=== PATIENT | female | born 1935 | race Caucasian/White ===

== ENCOUNTER 2017-09-30 23:50 | Inpatient (IN) | payer MEDICARE, OTHER ==
[2017-10-01 01:07] LABS: Hemoglobin 10.6 g/dL (12.0-16.0); Mean Corpuscular Hemoglobin 27.4 pg (27.0-31.0); Mean Corpuscular Volume 88.4 fl (81.0-99.0); Mean Platelet Volume 7.6 fL (7.4-10.4); Platelet Count 159 thou/uL (130-400); RBC Distribution Width 14.5 % (11.5-14.5); Red Blood Cell (RBC) Count 3.88 mill/uL (4.20-5.40); White Blood Cell (WBC) Count 14.7 thou/uL (4.8-10.8)
[2017-10-01 01:16] LABS: Band 23 % (5-11); Lymphocytes 4 % (21-51); MDiff Complete? YES; Metamyelocyte 1 % (0-0); Monocytes 7 % (0-10); Neutrophil 65 % (42-75); PLT Morphology Comment Appears Adequate; RBC Morphology Normal
[2017-10-01 01:17] LABS: ALT (SGPT) 21 U/L (8-55); AST (SGOT) 28 U/L (5-34); Albumin 3.5 g/dL (3.4-4.8); Alkaline Phosphatase 76 U/L (40-150); Anion Gap 17 mmol/L (10-20); BUN (Urea Nitrogen) 47 mg/dL (9.8-20.1); Bilirubin, Total 0.9 mg/dL (0.2-1.2); Calc. Creatinine Clearance 0 mL/min (70-130); Calcium 8.4 mg/dL (7.8-10.44); Carbon Dioxide 25 mmol/L (23-31); Chloride 87 mmol/L (98-107); Estimated GFR-MDRD 13; Globulin 2.5 g/dL (2.4-3.5); Glucose 114 mg/dL (83-110); Sodium 126 mmol/L (136-145)
[2017-10-01 01:22] LABS: Potassium 2.8 mmol/L (3.5-5.1)
[2017-10-01 02:32] LABS: Bilirubin Small (Negative); Blood, Urine Small (Negative); Clarity TURBID (Clear); Glucose, Urine (Dipstick) Negative (Negative); Leukocyte Moderate (Negative); Nitrite Negative (Negative); Protein, Urine (Dipstick) 300 mg/dL (Neg-Trace); Specific Gravity, Urine 1.026 (1.002-1.036)
[2017-10-01 02:35] LABS: Bacteria/HPF 3+ HPF (None Seen)
[2017-10-01 02:53] LABS: Other Casts/LPF 4-6 FINELY GRAN LPF (0-3 Hyaline); RBC/HPF 0-3 HPF (0-3)
[2017-10-01] MEDS ORDERED: cefTRIAXone\\ROCEPHIN 2 GM VIAL ONE (03:33)
[2017-10-01] MEDS ORDERED: Acetaminophen 500 MG TAB ONE (03:42)
[2017-10-01] MEDS ORDERED: Ondansetron ODT 4 MG TAB ONE (03:51)
[2017-10-01] MEDS ORDERED: Ondansetron HCl/PF 4 MG/2 ML Vial IVP PRN (05:23)
[2017-10-01] MEDS ORDERED: Ondansetron ODT 4 MG TAB SL PRN (05:23)
[2017-10-01] MEDS: NS 0.9% w/ 20 MEQ KCL 1,000 ML IV SCH ×2 (06:06→15:55)
[2017-10-01] MEDS ORDERED: Nitroglycerin 0.4 MG TAB (25 Tab Bottle) PO PRN (09:55)
[2017-10-01] MEDS ORDERED: Docusate 100 MG CAP PO PRN (09:55)
[2017-10-01] MEDS ORDERED: Ondansetron ODT 4 MG TAB PO PRN (09:55)
[2017-10-01] MEDS ORDERED: Calcium Carbonate 500 MG ChewTAB PO PRN (09:55)
[2017-10-01] MEDS: Fentanyl 100 MCG/2 ML VIAL SLOW IVP PRN ×3 (10:09→21:40)
[2017-10-01 10:24] LABS: Anion Gap 14 mmol/L (10-20); BUN (Urea Nitrogen) 48 mg/dL (9.8-20.1); Calc. Creatinine Clearance 0 mL/min (70-130); Calcium 7.9 mg/dL (7.8-10.44); Carbon Dioxide 23 mmol/L (23-31); Chloride 92 mmol/L (98-107); Estimated GFR-MDRD 13; Glucose 97 mg/dL (83-110); Magnesium 1.5 mg/dL (1.6-2.6); Phosphorus 3.4 mg/dL (2.3-4.7); Potassium 3.7 mmol/L (3.5-5.1); Sodium 125 mmol/L (136-145)
[2017-10-01 10:44] LABS: Thyroid Stimulating Hormone 2.5657 uIU/mL (0.35-4.94)
[2017-10-01 10:53] LABS: Osmolality, Urine 284 mOsm/kg (300-900)
[2017-10-01 11:06] LABS: Sodium, Urine 25 mmol/L (Not Available)
--- NOTE | 2017-10-01 11:20 | CT ---
HEAD CT WITHOUT CONTRAST: DATE: 10/01/17. COMPARISON: None. HISTORY: Persistent headache getting worse over 2 weeks, fall 2 weeks ago, on blood thinners. TECHNIQUE: Serial axial CT imaging obtained at 5 mm intervals from vertex through the skull base without contras t. FINDINGS: The imaged paranasal sinuses/mastoid air cells are well aerated. No displaced calvarial fracture. N o intracranial hemorrhage, midline shift, or mass effect. There is multifocal periventricular deep and subcortical white matter hypodensity suggesting signific ant small-vessel disease. This could be better assessed via followup MRI as clinically warranted. Linear hypodensity in the posterior aspect of the left cerebellar hemisphere suggests an area of prio r infarction. IMPRESSION: No intracranial hemorrhage or displaced calvarial fracture. POS: [facility]
--- NOTE | 2017-10-01 12:18 | ULT ---
RENAL ULTRASOUND: DATE: 10/01/17. COMPARISON: None. HISTORY: Acute kidney injury. TECHNIQUE: Multiplanar, bruce scale sonographic imaging of the kidneys and urinary bladder obtained. FINDINGS: Right kidney measures 10.3 x 5.0 x 6.1 cm and the left kidney measures 10.8 x 5.6 x 5.4 cm. There is no renal mass, hydronephrosis, or renal stone seen on either side. Urinary bladder could not be visualized secondary to body habitus and bowel gas. IMPRESSION: No evidence for hydronephrosis on either side. POS: [facility]
--- NOTE | 2017-10-01 13:48 | HP ---
DATE OF ADMISSION: 10/01/2017 PRIMARY CARE PHYSICIAN: Dr. Chakraborty. CHIEF COMPLAINT: Generalized weakness. HISTORY OF PRESENT ILLNESS: The patient is an 82-year-old female with hypertension, chronic atrial f ibrillation, dyslipidemia, and GERD who presented to the emergency room with generalized weakness kathya t has been going on almost for last 2 weeks. Over the last 2 weeks, patient has progressively worsening generalized weakness. She has even diffic ulty getting out of her bed. She had a fall approximately 2 weeks ago without any head injury. She also had some difficulty starting urinary stream. Over the last one and a half week or so, the patie nt has on and off nausea, vomiting with watery diarrhea. She took some Imodium after which the diarr hea has not reoccurred. She felt feverish; however, denies any chills. She also had some abdominal pain mainly over the suprapubic region, which is more or less constant. She has not been able to eat and drink over the last 2 weeks due to nausea and vomiting. PAST MEDICAL HISTORY: 1. Degenerative joint disease. 2. Gastroesophageal reflux disease. 3. Hypertension. 4. Chronic atrial fibrillation. 5. Anxiety. 6. Dyslipidemia. 7. Scoliosis. 8. Osteoporosis. 9. Chronic pain syndrome. PAST SURGICAL HISTORY: 1. Total abdominal hysterectomy. 2. Bladder suspension and rectocele repair. 3. Hemorrhoidectomy. 4. Left knee replacement. 5. Bilateral bunionectomies. ALLERGIES: No known drug allergies. CURRENT HOME MEDICATIONS: Patient does not remember any of her home medications. Family to get accu rate list of medications. SOCIAL HISTORY: Patient currently lives at home. Her recently . She denies curr ent use of tobacco or alcohol. She is independent of activities of daily living. FAMILY HISTORY: Negative for premature coronary artery disease. REVIEW OF SYSTEMS: The following complete review of systems was negative, unless otherwise mentioned in the HPI or below: Constitutional: Weight loss or gain, ability to conduct usual activities. Skin: Rash, itching. Eyes: Double vision, pain. ENT/Mouth: Nose bleeding, neck stiffness, pain, tenderness. Cardiovascular: Palpitations, dyspnea on exertion, orthopnea. Respiratory: Shortness of breath, wheezing, cough, hemoptysis, fever or night sweats. Gastrointestinal: Poor appetite, abdominal pain, heartburn, nausea, vomiting, constipation, or diarr hea. Genitourinary: Urgency, frequency, dysuria, nocturia. Musculoskeletal: Pain, swelling. Neurologic/Psychiatric: Anxiety, depression. Allergy/Immunologic: Skin rash, bleeding tendency. PHYSICAL EXAMINATION: VITAL SIGNS: In the emergency room showed temperature 98.5, respirations 20, pulse 83, blood pressur e of 117/61 with O2 saturation 95% on room air. GENERAL: An 82-year-old female, ill appearing with generalized weakness. HEENT: Head is atraumatic, normocephalic. Sclerae are anicteric. Dry mucous membranes. No oral le tammy. NECK: Supple, no JVD appreciated. No carotid bruit. LUNGS: Clear to auscultation bilaterally, no wheezing, rales or rhonchi. HEART: S1, S2 present. Regular rate and rhythm, 2/6 systolic murmur over the mitral area. ABDOMEN: Soft. There was tenderness over the suprapubic region, no rebound, guarding, no costoverte bral angle tenderness. EXTREMITIES: No edema or calf tenderness. NEUROLOGIC: Grossly nonfocal, moves all four extremities. PSYCHIATRIC: Alert, awake, oriented x3. SKIN: Warm and dry. LYMPH NODES: No palpable lymph nodes in the neck. LABORATORY DATA AND IMAGIN. CBC showed WBC of 14.7 with hemoglobin 10.6, hematocrit 34.3, platelet count of 159 with 23% band emia. 2. Sodium of 126, potassium 2.8, chloride 87, bicarbonate 25, BUN 47, creatinine 3.43. 3. Urinalysis showed greater than 50 WBCs with 3+ bacteria. 4. CT scan of the brain by my review was negative for acute findings. 5. EKG by my review showed atrial fibrillation with left axis deviation and nonspecific ST-T wave ch anges. IMPRESSION: 1. Generalized weakness, multifactorial. 2. Acute kidney injury on chronic kidney disease stage 2, probably due to dehydration. 3. Electrolyte abnormalities. The patient has hyponatremia, hypokalemia, hypochloremia as well as h ypomagnesemia with magnesium of 1.5. 4. Sepsis with acute organ dysfunction secondary to urinary tract infection. 5. Chronic atrial fibrillation on anticoagulation. 6. Hypertension. 7. Hyperlipidemia. 8. Anxiety. 9. Gastroesophageal reflux disease. 10. Degenerative joint disease. 11. Chronic pain syndrome. PLAN: 1. The patient will be monitored on the medical floor. We will continue IV normal saline at 125 mL for now. We will repeat labs. We will get renal ultrasound. We will check TSH, cortisol, urine sod ium and urine osmolality. We will get bilateral renal ultrasound to rule out obstructive uropathy. Antibiotics will be started for UTI. Urine cultures have been sent. We will resume home medications once confirmed. 2. Plan of care was discussed with the patient in detail. She stated understanding. 3. We will consult physical therapy and occupational therapy. 4. Code status: Full code, confirmed with the patient. 5. Surrogate decision maker is the son, Keith.
[2017-10-01] MEDS: Sodium Chloride 0.9% 1,000 ML IV SCH (14:34)
[2017-10-01] MEDS ORDERED: cefTRIAXone\\ROCEPHIN 1 GM in Sodium Chloride 0.9% 100 ML IVPB SCH (18:00)
[2017-10-01 18:27] LABS: Anion Gap 19 mmol/L (10-20); BUN (Urea Nitrogen) 53 mg/dL (9.8-20.1); Calc. Creatinine Clearance 15 mL/min (70-130); Calcium 8.1 mg/dL (7.8-10.44); Carbon Dioxide 20 mmol/L (23-31); Chloride 91 mmol/L (98-107); Estimated GFR-MDRD 12; Glucose 127 mg/dL (83-110); Potassium 3.6 mmol/L (3.5-5.1); Sodium 126 mmol/L (136-145)
[2017-10-01] MEDS: Ondansetron HCl/PF 4 MG/2 ML Vial IVP PRN (18:31)
--- NOTE | 2017-10-01 19:54 | CT ---
ABDOMEN CT WITHOUT CONTRAST PELVIC CT WITHOUT CONTRAST 10/01/17 HISTORY: Bacteremia. Pain. Nausea. Vomiting. COMPARISON: None. TECHNIQUE: An abdomen and pelvic CT are performed without IV or oral contrast. Coronal reformatted images are patino bmitted for interpretation. FINDINGS: Coronal reformatted images are submitted for interpretation. FINDINGS: ABDOMEN CT: Small bilateral effusions. Chronic changes in the lung bases. Heart is enlarged. There are coronary c alcifications. Nonspecific calcification in the posterior mediastinum. Small hiatal hernia. Nonspecif ic mediastinal fluid near the distal thoracic esophagus. Limited evaluation of the solid organs due to the lack of IV contrast. Liver spleen, pancreas, right adrenal gland are grossly normal. Redemonstration of a nodule with a punctate calcification involvin g the left adrenal gland measuring 1.7 cm. Attenuation coefficient is not compatible with a benign ad enoma. Grossly, no solid organ abnormality. Gallbladder is unremarkable. Symmetric attenuation of the psoas muscles. Bilaterally, no hydronephrosis, nephrolithiasis, or significant perinephric fat stranding. Bilateral ureters have a normal caliber. No hydroureter, periureteral fat stranding or ureterolithiasis. No gastrohepatic, retrocrural or periportal lymphadenopathy. No mesenteric mass, lymphadenopathy, free air or free fluid. Limited evaluation of the alimentary canal due to lack of oral contrast. No evidence of bowel obstruc tion. Ileocecal junction is normal. Appendix is not appreciated. Scattered fecal material in a nondis tended, nondilated colon. Occasional diverticulum. No evidence of diverticulitis. PELVIC CT: Uterus is surgically absent. No pelvic lymphadenopathy, free air or free fluid. There is a hypodensit y in the right hemipelvis measuring 3.8 x 3.6 cm with an attenuation coefficient of 2 Hounsfield unit s suggesting a cyst of uncertain etiology. Urinary bladder is unremarkable. Chronic changes of the spine are noted. IMPRESSION: 1. No evidence of bowel obstruction. 2. Right pelvic lesion. NAPPER GRINDER consultation is recommended to assess for possible ovarian cyst. 3. Left adrenal lesion, incompletely evaluated. The lesion does not have attenuation coefficient to suggest a benign adenoma. Lesion is noted on previous CT at which time measured 1.7 cm. No signif icant change in size. POS: [facility]
[2017-10-01] MEDS: Meropenem 500 MG in Sodium Chloride 0.9% 100 ML IVPB SCH (20:12)
--- NOTE | 2017-10-01 20:17 | RAD ---
ONE VIEW CHEST: 10/01/17 HISTORY: Hypoxia. COMPARISON: 08/18/12. FINDINGS: Atherosclerosis of the aorta. Enlarged cardiac silhouette. Pulmonary vessels and hilum are normal. El evation of the left hemidiaphragm. Stable blunting of the left costophrenic angle. Hyperinflation is again noted. No pneumothorax. IMPRESSION: 1. Atherosclerosis. 2. Cardiomegaly. 3. Chronic changes. No acute cardiopulmonary process. POS: [facility]
[2017-10-01] MEDS: Saccharomyces boulardii 250 MG CAP PO SCH (21:31)
--- NOTE | 2017-10-01 21:50 | CON ---
DATE OF CONSULTATION: 10/01/2017 NEPHROLOGY CONSULTATION REASON FOR CONSULTATION: Elevated creatinine. HISTORY OF PRESENT ILLNESS: This is a very pleasant 82-year-old female with a history of hypertensio n, AFib, and hyperlipidemia, who presented to the hospital with 2-week history of generalized weaknes s and still has diarrhea. The patient has difficulty to start urinating. The patient denies any josé luis sea, vomiting, or chest pain. The patient's baseline creatinine was 0.85 in 05/2015, which has incre ased to 3.4 today and 3.52 in the afternoon. The patient denies any NSAID use or any other nephrotox ic medication. PAST MEDICAL HISTORY: Degenerative joint disease, GERD, hypertension, AFib, anxiety, hyperlipidemia, scoliosis, abdominal hysterectomy, bladder suspension, hemorrhoidectomy, left knee replacement, bila teral bunionectomy. ALLERGIES: Reviewed. HOME MEDICATIONS: List reviewed. SOCIAL HISTORY: No alcohol or drug use. FAMILY HISTORY: Negative for ESRD. REVIEW OF SYSTEMS: Fifteen-point review of systems was performed and negative except for positive no chris above. GENERAL: Weakness-. HEAD: Headache-. NECK: No swelling or lumps. NOSE: No epistaxis or discharge. EYES: No diplopia or pain. RESPIRATORY: Dyspnea-. CARDIOVASCULAR: Chest pain-. GASTROINTESTINAL: Nausea-. /INSPECTOR BOILER: Hematuria-. MUSCULOSKELETAL: No joint pain. NEUROPSYCHIATIC SYSTEMS: No suicidal ideation. No ideation. SKIN: Denies any rash or ulcer. CONSTITUTIONAL: No fever or chills. PHYSICAL EXAMINATION: GENERAL: The patient is awake, alert. VITAL SIGNS: Afebrile, pulse 83, breathing at 16, blood pressure 117/61. GENERAL APPEARANCE AND MENTAL STATUS: Fair. HEAD/NECK: Normocephalic. Atraumatic. EYES: EOMI. No deformity. EARS: Clear. No ulcers. NOSE: Intact. No lesions. MOUTH: Clear. No discharge. THROAT: Clear. No exudate. LUNGS: Clear. No crackles. CARDIAC: S1, S2. No rub. ABDOMEN: Benign. BS+. GENITALIA/RECTUM: Moise absent. BACK/EXTREMITIES: Edema 0+ Ulcer-. NEUROLOGICAL: Alert and motor intact. SKIN: Rash- Bruise-. LYMPHATICS: Edema- Ulcer-. LABORATORY DATA: Potassium 3.7, creatinine 3.3. ASSESSMENT AND RECOMMENDATIONS: 1. Acute kidney injury with chronic kidney disease, stage 5, most likely due to decreased effective arterial blood volume. Continue with hydration. 2. Anemia, stable. 3. Hyponatremia due to renal failure. Continue saline. 4. Hypomagnesemia. Consider magnesium replacement. 5. Hypokalemia. No indication for dialysis. I will order imaging.
[2017-10-01] MEDS: Famotidine/PF 20 mg/2ml Vial SLOW IVP SCH (22:04)
[2017-10-01] MEDS ORDERED: Cetirizine HCl 10 MG TAB PO PRN (22:12)
--- NOTE | 2017-10-01 23:27 | CON ---
DATE OF CONSULTATION: 10/02/2017 REASON FOR CONSULTATION: Bacteremia. HISTORY OF PRESENT ILLNESS: An 82-year-old, history of atrial fibrillation, hypertension who in prior bladder suspension and rectocele repair who developed some vomiting for the past 2 weeks, weakness. She has some suprapubic pain, dysuria, and some diarrhea, nausea, and vomiting. He took some Imodium and then felt feverish eventually was admitted. Initial BP 117/61, O2 sat 95%, temperature 98.5, respirations 20, pulse 83. The exam showed tenderness in the suprapubic region. Lungs were clear. Heart exam was normal except for systolic murmur and a white cell count was elevated at 14,000, hemoglobin 10, platelets 159 with bandemia. Urinalysis was abnormal and kidney ultrasound did not show any obstruction. Currently, she is still feeling poorly. She has been receiving ceftriaxone, levofloxacin, some headaches. No visual symptoms. No sore throat, no toothache some low back pain, some cough, but no sputum production. No chest pain. No anterior abdominal pain. She still has some suprapubic fullness sensation. No joint symptoms. No neurological symptoms. PAST MEDICAL HISTORY: DJD, GERD, hypertension, atrial fibrillation, anxiety, scoliosis, osteoporosis. PAST SURGICAL HISTORY: Hysterectomy, bladder suspension, rectocele repair, hemorrhoidectomy, bilateral knee replacements. ALLERGIES: None. MEDICATIONS: Ceftriaxone, levofloxacin, albuterol, calcium, docusate, famotidine, fentanyl p.r.n. nitroglycerin, Saccharomyces. PHYSICAL EXAMINATION: VITAL SIGNS: T-max 98.3, blood pressure 114/71, pulse 71, respirations 20, O2 sat 92%. SKIN: With no areas of skin breakdown. Peripheral IV access. No Moise catheter. No lymphadenopathy. HEENT: Ocular movements are conjugate. Conjunctivae is somewhat pale. Oral cavity still quite a few teeth in place with some decay, not much gum disease. NECK: Supple, no jugular venous distention. LUNGS: With basilar crackles particularly on the left side. No wheezing. HEART: S1, S2 with a soft aortic murmur. ABDOMEN: Soft, not distended. The suprapubic area is dull to percussion and a little bit distended, mild tenderness in the lumbosacral spine area. EXTREMITIES: No joint inflammatory activity. Pulses 1+ dorsalis pedis. NEUROLOGIC: Plantar responses are flexure. Cognitive function appears to be intact. LABORATORY DATA: White cell count has been discussed above. Subsequent chemistry labs with sodium 125, creatinine is at 3.31, this is a marked elevation compared with previous which was 0.85. Liver profile normal. Albumin 3.5, globulin 2.5. TSH 2.56. Cortisol 29. Microbiology with 2 sets of blood cultures, gram negative katarzyna and urine culture Gram-negative katarzyna as well. I do not see a chest x-ray here. ASSESSMENT: Urosepsis with pyelonephritis likely cystitis, urinary retention needs to be ruled out probably has lung involvement with capillary leak syndrome , acute renal insufficiency associated with hypotension, probably hemodynamically mediated. We will switch her to meropenem, continue Levaquin, discontinue Rocephin in view of the possibility of ESBL organism. Wait for susceptibilities and full identification profile hopefully by tomorrow. Check postvoid residuals. MTDD
[2017-10-02] MEDS: Fentanyl 100 MCG/2 ML VIAL SLOW IVP PRN ×2 (02:38→20:31)
[2017-10-02] MEDS: Sodium Chloride 0.9% 1,000 ML IV SCH ×3 (02:42→20:31)
[2017-10-02 04:11] LABS: #Lymphocytes 0.3 thou/uL (1.20-3.40); #Monocytes 0.6 thou/uL (0.11-0.59); #Neutrophils 10.4 thou/uL (1.40-6.50); %Basophils 0.2 % (0.0-1.0); %Eosinophils 0.4 % (0.0-10.0); %Lymphocytes 2.7 % (21.0-51.0); %Monocytes 5.6 % (0.0-10.0); %Neutrophils 91.1 % (42.0-75.0); Hemoglobin 10.5 g/dL (12.0-16.0); Mean Corpuscular HGB CONC 31.9 g/dL (32.0-36.0); Mean Corpuscular Hemoglobin 28.3 pg (27.0-31.0); Mean Corpuscular Volume 88.8 fl (81.0-99.0); Mean Platelet Volume 8.2 fL (7.4-10.4); Platelet Count 122 thou/uL (130-400); RBC Distribution Width 14.7 % (11.5-14.5); Red Blood Cell (RBC) Count 3.72 mill/uL (4.20-5.40); White Blood Cell (WBC) Count 11.4 thou/uL (4.8-10.8)
[2017-10-02 04:51] LABS: ALT (SGPT) 24 U/L (8-55); AST (SGOT) 29 U/L (5-34); Albumin 3.1 g/dL (3.4-4.8); Alkaline Phosphatase 131 U/L (40-150); Anion Gap 16 mmol/L (10-20); BUN (Urea Nitrogen) 59 mg/dL (9.8-20.1); Bilirubin, Total 0.5 mg/dL (0.2-1.2); Calc. Creatinine Clearance 14 mL/min (70-130); Calcium 7.9 mg/dL (7.8-10.44); Carbon Dioxide 21 mmol/L (23-31); Chloride 93 mmol/L (98-107); Estimated GFR-MDRD 12; Globulin 2.5 g/dL (2.4-3.5); Glucose 89 mg/dL (83-110); Phosphorus 3.3 mg/dL (2.3-4.7); Potassium 3.4 mmol/L (3.5-5.1); Protein, Total 5.6 g/dL (6.0-8.3); Sodium 127 mmol/L (136-145)
[2017-10-02 04:56] LABS: Magnesium 1.9 mg/dL (1.6-2.6)
[2017-10-02] MEDS ORDERED: Methyl Salicylate/Menthol 85 GM TUBE TOP PRN (05:35)
[2017-10-02] MEDS: Levothyroxine Sodium 75 MCG TAB PO SCH ×3 (05:42→06:03)
[2017-10-02] MEDS: Meropenem 500 MG in Sodium Chloride 0.9% 100 ML IVPB SCH ×2 (05:42→18:51)
[2017-10-02] MEDS: Ondansetron HCl/PF 4 MG/2 ML Vial IVP PRN (05:46)
[2017-10-02] MEDS: Acetaminophen 325 MG TAB PO PRN ×2 (06:02→12:16)
[2017-10-02] MEDS: Rivaroxaban 10 MG TAB PO SCH (09:02)
[2017-10-02] MEDS: Famotidine/PF 20 mg/2ml Vial SLOW IVP SCH ×2 (09:02→20:29)
[2017-10-02] MEDS: Saccharomyces boulardii 250 MG CAP PO SCH ×2 (09:02→20:30)
--- NOTE | 2017-10-02 10:36 | CON ---
DATE OF CONSULTATION: 10/02/2017 HISTORY OF PRESENT ILLNESS: She is a 82-year-old female who presented to the hospital with weakness, confusion and encephalopathy. She was found to have a urinary tract infection versus renal failure. She also had a headache. She has been in the hospital now overnight, she was transferred to the MICU because apparently she was very hypoxemic. PAST MEDICAL HISTORY: Pertinent for arthritis, gastritis, hypertension, atrial fibrillation, anxiety , chronic pain, reactive airway disease. PAST SURGICAL HISTORY: Left knee, hemorrhoid, bladder suspension, hysterectomy, spinal stenosis surg [place], bilateral bunion surgery. ALCOHOL: None. TOBACCO: None. ALLERGIES: None. HOME MEDICATIONS: Includes DuoNeb, Ventolin inhaler, Ativan p.r.n. Zanaflex 2 mg p.r.n., sulfasalazi ne 1000 twice a day, Xarelto 10, Protonix 40, Toprol XL 100, Synthroid 75, Prozac 10, hydrocodone p .r.n., nose spray, amlodipine 5. REVIEW OF SYSTEMS: Otherwise unremarkable. PHYSICAL EXAMINATION: GENERAL: She is awake, alert, in no distress. Still weak, slightly encephalopathic. VITAL SIGNS: Sats are 92% on 2 liters, respiration rate 18, temperature is 98, pulse 90, blood press ure 140/70. CHEST: Chest reveals no wheezing or crackles. CARDIAC: Normal S1, S2, no gallops. ABDOMEN: Soft. EXTREMITIES: No edema. NEUROLOGIC: She is awake, responsive, moves all 4 extremities. LABORATORY AND X-RAY FINDINGS: White count 11,000, H&H is 10 and 33, platelet count normal. Sodium 127, BUN and creatinine 59 and 3.7. TSH is normal. Blood culture is growing E. coli. IMPRESSION: 1. Escherichia coli sepsis. 2. Encephalopathy. 3. Renal failure. 4. Atrial fibrillation. 5. C-reactive disease. 6. Cough. PLAN: She is on adequate antibiotics. I have added Dulera to her present neb treatments. We will ori jarvis while in the MICU. This is a consultation note, 70 minutes, 50% spent in direct patient care.
--- NOTE | 2017-10-02 11:46 | PRG ---
DATE OF SERVICE: 10/02/2017 SUBJECTIVE: This is an 82-year-old female being seen for acute kidney injury. The patient remains o liguric, has had only 200 mL out, but patient has persistent nausea and vomiting. PHYSICAL EXAMINATION: GENERAL: Patient is awake, alert. VITAL SIGNS: Afebrile, pulse 96, breathing 16, blood pressure 134/68. OBJECTIVE: See above. Awake, alert, in no acute distress. GENERAL APPEARANCE AND MENTAL STATUS: Fair. HEAD/NECK: Normocephalic. Atraumatic. EYES: EOMI. No deformity. EARS: Clear. No ulcers. NOSE: Intact. No lesions. MOUTH: Clear. No discharge. THROAT: Clear. No exudate. LUNGS: Clear. No crackles. CARDIAC: S1, S2. No rub. ABDOMEN: Benign. BS+. GENITALIA/RECTUM: Moise absent. BACK/EXTREMITIES: Edema 0+ Ulcer- NEUROLOGICAL: Alert and motor intact. SKIN: Rash- Bruise- LYMPHATICS: Edema- Ulcer- LABORATORY: Hemoglobin is 10.5, potassium 3.4, creatinine 3.7. ASSESSMENT AND RECOMMENDATIONS: 1. Acute kidney injury with chronic kidney disease stage 5, most likely because of sepsis and pyelon ephritis induced acute tubular necrosis. Continue gentle hydration. 2. Metabolic acidosis, improved. 3. Hyponatremia due to renal failure, improved. No urgent indication for dialysis. 4. Nausea, vomiting, would recommend a GI consult. 5. Sepsis. 6. Ovarian cyst has been present for 10 years. I would recommend follow up with PCP. 7. Adrenal lesion. I would recommend follow up with Endocrinology at discharge. This can be set up by the primary team. This was discussed and conveyed to the primary team.
--- NOTE | 2017-10-02 13:12 | CON ---
DATE OF CONSULTATION: 10/02/2017 HISTORY OF PRESENT ILLNESS: The patient is an 82-year-old female who was in her normal sta te of health until approximately one week prior to admission when she developed some abdominal pain, which was generalized and nausea and vomiting. She also had loose stools. She denies any prior anti biotics or anything like that. She became progressively more weak and sought treatment in the emerge ncy room. There, she was diagnosed with urosepsis. She has had no blood in her stool, no hematemesi s. PAST MEDICAL HISTORY: Includes arthritis on sulfasalazine, gastroesophageal reflux disease, hyperten tammy, atrial fibrillation, and chronic pain syndrome. PAST MEDICAL HISTORY: Includes hysterectomy, bladder suspension, hemorrhoidectomy, left knee replace ment, bunionectomy. MEDICATIONS: Polyethylene glycol 17 grams p.o. daily, fish oil, sulfasalazine 1000 mg p.o. daily, Xa relto 10 mg p.o. daily, Protonix 40 mg p.o. daily, metoprolol 100 mg p.o. at bedtime, levothyroxine 7 5 mcg p.o. daily, fluoxetine 10 mg p.o. daily, chlorthalidone 25 mg p.o. daily, Norvasc 5 mg p.o. katrin ly. ALLERGIES: No known medical allergies. SOCIAL HISTORY: She does not smoke or drink. FAMILY HISTORY: Negative. REVIEW OF SYSTEMS: CONSTITUTIONAL: Positive for fever, chills. Negative for weight loss. EYES: N o blurred vision or double vision. ENT: No sore throat or earaches. CARDIOVASCULAR: No chest pain or palpitations. PULMONARY: No shortness of breath, cough, or wheezing. SKIN: No rashes. NEUROL OGIC: No numbness or seizure activity. PHYSICAL EXAMINATION: VITAL SIGNS: Shows temperature 98.1, pulse 96, respiratory rate 20, blood pressure 134/68. HEENT: Unremarkable. NECK: Supple. CHEST: Clear. CARDIOVASCULAR: Regular rate and rhythm. ABDOMEN: Soft and nontender without organomegaly or masses. Bowel sounds are present and normoactiv e. RECTAL: Deferred. EXTREMITIES: Normal. NEUROLOGIC: Nonfocal. LABORATORY DATA: Shows white blood cell count 11.4, hemoglobin 10.5, hematocrit 33.1. Chemistries s how sodium 127, potassium 3.4, chloride 93, CO2 21. Urinalysis showed greater than 50 WBCs. Blood c ultures are positive for gram-negative rods. IMAGING DATA: Patient underwent an abdominal and pelvic CT which showed no significant bowel changes . She did have a right pelvic lesion and a left adrenal lesion. ASSESSMENT: 1. Nausea, vomiting, and diarrhea - probably secondary to urosepsis. 2. Urosepsis. PLAN: 1. Stool for C. diff. 2. Continue clear liquids, advance as tolerated. 3. Continue proton-pump inhibitor.
[2017-10-02] MEDS ORDERED: Lorazepam 0.5 MG TAB PO PRN (13:19)
[2017-10-02] MEDS ORDERED: PROVENTIL INHALER 6.7 G (200 INHALATIONS) INH PRN (13:26)
--- NOTE | 2017-10-02 14:08 | PRG ---
DATE OF SERVICE: 10/02/2017 SUBJECTIVE: Being transferred to [facility]. She is feeling actually better. She was standing up in the room when I arrived, awake, oriented, follows commands. Ate, some clear fluids and other minor solid foods this morning. No headaches, no shortness of breath, no abdominal pain. Voiding spontaneously . OBJECTIVE: HEENT: Ocular movements are conjugate. LUNGS: Clear. HEART: S1, S2, regular rate. ABDOMEN: Soft, not distended. LABORATORY DATA: White cell count down to 11.4, hemoglobin 10, platelets 122,000, 91% neutrophils. Creatinine is up to 3.7, sodium 127. Liver profile normal. Albumin 3.1. E. coli has been retrieved from blood cultures pending susceptibility profile. ASSESSMENT AND DISCUSSION: Urosepsis with pyelonephritis, likely cystitis, urinary retention with Es cherichia coli, blood stream and urine. Continue meropenem and Levaquin until have susceptibility re sults back. Hopefully, will be able to discharge on oral quinolones and is not going to require urol ogical intervention looks like. I believe the postvoid residuals are acceptable.
--- NOTE | 2017-10-02 16:59 | PDOC.PN ---
- Subjective Encounter Start Date: 10/02/17 Encounter Start Time: 12:30 Patient seen and examined for Sepsis. No new complaints. No overnight events. Intermittent nausea. Feels gen weak. - Objective Resuscitation Status: Resuscitation Status FULL:Full Resuscitation MAR Reviewed: Yes Vital Signs & Weight: Vital Signs (12 hours) Temp Pulse Pulse Pulse Pulse Pulse Resp 10/02/17 15:43 98.6 F 89 18 10/02/17 14:54 10/02/17 14:15 94 97 96 105 H 10/02/17 11:12 98.1 F 96 20 10/02/17 08:00 98.6 F 99 18 10/02/17 07:26 98.6 F 99 18 BP BP BP BP BP BP BP 10/02/17 15:43 140/72 10/02/17 14:54 151/86 H 148/89 H 140/82 10/02/17 14:15 140/82 151/86 H 148/89 H 141/80 H 10/02/17 11:12 134/68 10/02/17 08:00 10/02/17 07:26 141/70 H Pulse Ox 10/02/17 15:43 96 10/02/17 14:54 10/02/17 14:15 10/02/17 11:12 95 10/02/17 08:00 98 10/02/17 07:26 96 Weight Weight 174 lb 4.8 oz I&O: 10/01/17 10/02/17 10/03/17 06:59 06:59 06:59 Intake Total 1057 Output Total 250 100 Balance 807 -100 Result Diagrams: 10/02/17 03:39 10/02/17 03:39 Additional Labs: Microbiology 10/01/17 01:50 Urine Straight Catheter Urine Culture - Final Escherichia coli 10/01/17 03:27 Venous blood - Left Arm Blood Culture - Preliminary Gram Negative Ty 10/01/17 00:34 Venous blood - Right Arm Blood Culture - Preliminary Escherichia coli Laboratory Tests 10/02/17 03:39 C-Reactive Protein 38.05 H Radiology Reviewed by me: Yes (CT abd - neg except Ovarian mass, CXR - neg) EKG Reviewed by me: Yes (Tele Afib) Phys Exam - Physical Examination Constitutional: NAD (ill appearing) Neck: no JVD Respiratory: no wheezing, no rales, no rhonchi, clear to auscultation bilateral Cardiovascular: no rub, irregular no heaves/pulsations Gastrointestinal: soft, positive bowel sounds mild gen tenderness, no rebound/guarding Musculoskeletal: no edema Neurological: non-focal, normal sensation, moves all 4 limbs Psychiatric: normal affect, A&O x 3 Dx/Plan - Plan IMPRESSION: 1. Sepsis with acute organ dysfunction secondary to urinary tract infection with bacteremia. 2. Acute kidney injury on chronic kidney disease stage 2, probably due to dehydration/sepsis 3. Electrolyte abnormalities. (hyponatremia, hypokalemia, hypochloremia & hypomagnesemia) 4. Generalized weakness, multifactorial. 5. Chronic atrial fibrillation on anticoagulation. 6. Hypertension. 7. Hyperlipidemia. 8. Anxiety. Prozac on hold due to JEANIE 9. Gastroesophageal reflux disease. 10. Degenerative joint disease. 11. Chronic pain syndrome/RA - Sulfasalazine on hold due to JEANIE 12. Thrombocytopenia - prob due to sepsis 13. Right Pelvic lesion - PCP to follow PLAN: * Cont Meropenem/Levaquin * Cont IVF * Transfer to tele * AM labs * Monitor platelet counts * Stool w/u pending * Ambulate * Cont current meds as below * Resume low dose Metoprolol Review of Systems - Review of Systems Respiratory: negative: Cough, Dry, Shortness of Breath, Hemoptysis, SOB with Excertion, Pleuritic Pain, Sputum, Wheezing Cardiovascular: negative: chest pain, palpitations, orthopnea, paroxysmal nocturnal dyspnea, edema, light headedness, other - Medications/Allergies Allergies/Adverse Reactions: Allergies Allergy/AdvReac Type Severity Reaction Status Date / Time No Known Allergies Allergy Verified 10/01/17 05:35 Medications: Current Medications Acetaminophen (Tylenol) 650 mg PO Q4H PRN PRN Reason: Headache/Fever or Pain Last Admin: 10/02/17 12:16 Dose: 650 mg Albuterol Sulfate (Proventil Hfa) 2 puff INH Q4HR PRN PRN Reason: SOB &/or Wheezing Albuterol/Ipratropium (Duoneb) 3 ml NEB [id number] PRN PRN Reason: SOB &/or Wheezing Calcium Carbonate (Tums) 1,000 mg PO Q4H PRN PRN Reason: Heartburn or Indigestion Cetirizine HCl (Zyrtec) 10 mg PO DAILYPRN PRN PRN Reason: Allergies Docusate Sodium (Colace) 100 mg PO BIDPRN PRN PRN Reason: Constipation Famotidine (Pepcid) 10 mg SLOW IVP Q12HR [facility] Last Admin: 10/02/17 09:02 Dose: 10 mg Fentanyl (Sublimaze) 12.5 mcg SLOW IVP Q3H PRN PRN Reason: Pain Last Admin: 10/02/17 02:38 Dose: 12.5 mcg Sodium Chloride (Normal Saline 0.9%) 1,000 mls @ 75 mls/hr IV .[id number] [facility] Last Admin: 10/02/17 12:21 Dose: 1,000 mls Levofloxacin 250 mg/ Device 50 mls @ 100 mls/hr IVPB Q2D@1700 [facility] Meropenem 500 mg/ Sodium (Chloride) 100 mls @ 200 mls/hr IVPB 0600,1800 [facility] Last Admin: 10/02/17 05:42 Dose: 100 mls Levothyroxine Sodium (Synthroid) 75 mcg PO 0600 [facility] Last Admin: 10/02/17 06:03 Dose: 75 mcg Lorazepam (Ativan) 0.5 mg PO Q6H PRN PRN Reason: Anxiety Menthol/Methyl Salicylate (Muscle Rub Cream (Bengay)) 0 gm TOP PRN PRN PRN Reason: Muscle Pain Last Admin: 10/02/17 05:42 Dose: 1 gm Miscellaneous Medication (Pharmacy To Dose) 1 each IVPB PRN PRN PRN Reason: Pharmacy to dose Mometasone Furoate/Formoterol Fumar (Dulera 200 Mcg/5 Mcg Inhaler) 1 puff INH BID-RT [facility] Nitroglycerin (Nitrostat) 0.4 mg PO Q5MIN PRN PRN Reason: Chest Pain Ondansetron HCl (Zofran Odt) 4 mg PO Q6H PRN PRN Reason: Nausea/Vomiting Ondansetron HCl (Zofran) 4 mg IVP Q6H PRN PRN Reason: Nausea/Vomiting Last Admin: 10/02/17 05:46 Dose: 4 mg Rivaroxaban (Xarelto) 10 mg PO DAILY [facility] Last Admin: 10/02/17 09:02 Dose: 10 mg Saccharomyces Boulardii (Florastor) 250 mg PO BID [facility] Last Admin: 10/02/17 09:02 Dose: 250 mg Sodium Chloride (Flush - Normal Saline) 10 ml IVF Q12HR [facility] Last Admin: 10/02/17 09:03 Dose: 10 ml Sodium Chloride (Flush - Normal Saline) 10 ml IVF PRN PRN PRN Reason: Saline Flush
[2017-10-02] MEDS: Mometasone/Formoterol 120 PUFF INHALER INH SCH (18:56)
[2017-10-02] MEDS: Metoprolol Tartrate 25 MG TAB PO SCH (20:29)
[2017-10-03] MEDS: Fentanyl 100 MCG/2 ML VIAL SLOW IVP PRN ×3 (00:25→13:54)
[2017-10-03 04:47] LABS: Albumin 2.9 g/dL (3.4-4.8); Anion Gap 18 mmol/L (10-20); BUN (Urea Nitrogen) 63 mg/dL (9.8-20.1); BUN/Creatinine Ratio 16.76; Calc. Creatinine Clearance 15 mL/min (70-130); Calcium 7.8 mg/dL (7.8-10.44); Carbon Dioxide 16 mmol/L (23-31); Chloride 97 mmol/L (98-107); Estimated GFR-MDRD 12; Glucose 86 mg/dL (83-110); Magnesium 1.8 mg/dL (1.6-2.6); Phosphorus 3.1 mg/dL (2.3-4.7); Potassium 3.7 mmol/L (3.5-5.1); Sodium 127 mmol/L (136-145)
[2017-10-03 05:18] LABS: Hemoglobin 10.7 g/dL (12.0-16.0); Mean Corpuscular HGB CONC 32.1 g/dL (32.0-36.0); Mean Corpuscular Volume 90.3 fl (81.0-99.0); Mean Platelet Volume 8.6 fL (7.4-10.4); Platelet Count 120 thou/uL (130-400); RBC Distribution Width 15.2 % (11.5-14.5); Red Blood Cell (RBC) Count 3.69 mill/uL (4.20-5.40); White Blood Cell (WBC) Count 10.8 thou/uL (4.8-10.8)
[2017-10-03 05:19] LABS: Band 19 % (5-11); Crenated RBC SLIGHT = 1-5 cells (100X) (None Seen); Eosinophils 1 % (0-10); Lymphocytes 5 % (21-51); MDiff Complete? YES; Monocytes 5 % (0-10); Neutrophil 70 % (42-75); Toxic Granulation SLIGHT
[2017-10-03] MEDS: Meropenem 500 MG in Sodium Chloride 0.9% 100 ML IVPB SCH (06:00)
[2017-10-03] MEDS: Sodium Chloride 0.9% 1,000 ML IV SCH ×2 (06:00→17:43)
[2017-10-03] MEDS: Levothyroxine Sodium 75 MCG TAB PO SCH (06:01)
[2017-10-03] MEDS: Mometasone/Formoterol 120 PUFF INHALER INH SCH ×2 (07:08→18:47)
[2017-10-03] MEDS: Rivaroxaban 10 MG TAB PO SCH (08:28)
[2017-10-03] MEDS: Saccharomyces boulardii 250 MG CAP PO SCH ×2 (08:28→21:17)
[2017-10-03] MEDS: Metoprolol Tartrate 25 MG TAB PO SCH ×2 (08:28→21:17)
--- NOTE | 2017-10-03 08:56 | PDOC.PN ---
- Subjective Encounter Start Date: 10/03/17 Encounter Start Time: 08:51 Subjective: no fever, aches and pains - Objective Resuscitation Status: Resuscitation Status FULL:Full Resuscitation MAR Reviewed: Yes Vital Signs & Weight: Vital Signs (12 hours) Temp Pulse Resp BP BP Pulse Ox 10/03/17 08:00 98.7 F 100 18 167/79 H 10/03/17 07:08 106 H 16 95 10/03/17 04:00 98.3 F 99 16 139/75 96 10/03/17 00:39 98.5 F 100 16 142/75 H 94 L Weight Weight 177 lb 11.2 oz I&O: 10/02/17 10/03/17 10/04/17 06:59 06:59 06:59 Intake Total 1057 3068 Output Total 250 850 Balance 807 2218 Result Diagrams: 10/03/17 03:32 10/03/17 03:32 Phys Exam - Physical Examination Neck: no JVD Respiratory: clear to auscultation bilateral Cardiovascular: RRR, no significant murmur Gastrointestinal: soft, positive bowel sounds Musculoskeletal: edema present Dx/Plan (1) Sepsis Code(s): A41.9 - SEPSIS, UNSPECIFIED ORGANISM Status: Acute Qualifiers: Sepsis type: Escherichia coli Qualified Code(s): A41.51 - Sepsis due to Escherichia coli [E. coli] (2) Bacteremia due to Escherichia coli Code(s): R78.81 - BACTEREMIA Status: Acute (3) UTI (urinary tract infection), bacterial Code(s): N39.0 - URINARY TRACT INFECTION, SITE NOT SPECIFIED; A49.9 - BACTERIAL INFECTION, UNSPECIFIED Status: Acute (4) CKD (chronic kidney disease) stage 5, GFR less than 15 ml/min Code(s): N18.5 - CHRONIC KIDNEY DISEASE, STAGE 5 Status: Chronic (5) HTN (hypertension) Code(s): I10 - ESSENTIAL (PRIMARY) HYPERTENSION Status: Chronic Qualifiers: Hypertension type: essential hypertension Qualified Code(s): I10 - Essential (primary) hypertension (6) Atrial fibrillation with controlled ventricular rate Code(s): I48.91 - UNSPECIFIED ATRIAL FIBRILLATION Status: Chronic - Plan cont iv levaquin, DC meropenem -: cont iv fluids -: discuss with Dr Goins -: cont xarelto, metoprolol * .
--- NOTE | 2017-10-03 10:40 | PRG ---
DATE OF SERVICE: 10/03/2017 SUBJECTIVE: An 82-year-old female being seen for acute kidney injury. The patient denies any nausea , vomiting, or chest pain. OBJECTIVE: GENERAL: Patient is awake, alert. VITAL SIGNS: Afebrile, pulse 100, breathing 16, blood pressure 139/75. GENERAL APPEARANCE AND MENTAL STATUS: Fair. HEAD/NECK: Normocephalic. Atraumatic. EYES: EOMI. No deformity. EARS: Clear. No ulcers. NOSE: Intact. No lesions. MOUTH: Clear. No discharge. THROAT: Clear. No exudate. LUNGS: Clear. No crackles. CARDIAC: S1, S2. No rub. ABDOMEN: Benign. BS+. GENITALIA/RECTUM: Moise absent. BACK/EXTREMITIES: Edema 0+ Ulcer- NEUROLOGICAL: Alert and motor intact. SKIN: Rash- Bruise- LYMPHATICS: Edema- Ulcer- LABORATORY: Show hemoglobin 10.7, creatinine is 3.7, potassium 3.7. ASSESSMENT AND RECOMMENDATIONS: 1. Acute kidney injury with chronic kidney disease stage 5, stable. The patient is making more urin e, 850 out, so patient is nonoliguric. No indication for dialysis. 2. Hypertension, stable. 3. Anemia, stable. 4. Medication based on glomerular filtration rate are appropriate. 5. Hyponatremia, improving 6. Hypokalemia, improved. No indication for dialysis. We will follow renal function closely.
[2017-10-03] MEDS ORDERED: guaiFENesin ER 600 MG TAB PO SCH (10:45)
[2017-10-03] MEDS: Acetaminophen 325 MG TAB PO PRN (11:33)
[2017-10-03] MEDS: Famotidine/PF 20 mg/2ml Vial SLOW IVP SCH ×2 (11:33→21:16)
[2017-10-03] MEDS: FLUoxetine HCl 10 MG CAP PO SCH (11:41)
--- NOTE | 2017-10-03 13:05 | PRG ---
DATE OF SERVICE: 10/03/2017 SUBJECTIVE: This morning, she is better. She is still coughing. OBJECTIVE: VITAL SIGNS: Sats are 95% on 2 liters, temperature 98, pulse is 100, blood pressure is 167/79. CHEST: Occasional wheeze. CARDIAC: Normal S1, S2, no gallops. ABDOMEN: Soft. No masses. LABORATORY DATA: Creatinine 3.76. White count 10,000. IMPRESSION: Urinary tract infection; Escherichia coli; renal failure; bronchitis; asthma, stable. PLAN: Continue Dulera. Continue supportive care. Continue antibiotics. We will follow.
[2017-10-03] MEDS ORDERED: Sodium Bicarbonate Tab 325 MG TAB PO SCH (14:00)
--- NOTE | 2017-10-03 15:07 | PRG ---
DATE OF SERVICE: 10/03/2017 SUBJECTIVE: The patient complains of abdominal bloating, but no significant pain. She is tolerating more regular diet. She has had several episodes of flatus, but no bowel movements. OBJECTIVE: VITAL SIGNS: Temperature 98.5, pulse 96, respiratory rate 14, blood pressure 142/84. CHEST: Clear. CARDIOVASCULAR: Regular rate and rhythm. ABDOMEN: Soft and nontender without organomegaly or masses. Bowel sounds are present. LABORATORY DATA: Shows sodium 127, CO2 16, BUN 63, creatinine of 3.76. White blood cell count is 10 .8 with hemoglobin 10.7 and hematocrit 33.3. ASSESSMENT: 1. Urosepsis. 2. Nausea, vomiting, and diarrhea secondary to urosepsis, seems to be resolving. RECOMMENDATIONS: Stool for Clostridium difficile - has not been performed yet. Continue to advance diet. No new recommendations for GI.
[2017-10-03] MEDS: guaiFENesin ER 600 MG TAB PO SCH (21:16)
[2017-10-04 05:26] LABS: Albumin 2.9 g/dL (3.4-4.8); Anion Gap 16 mmol/L (10-20); BUN (Urea Nitrogen) 64 mg/dL (9.8-20.1); BUN/Creatinine Ratio 18.29; Calc. Creatinine Clearance 16 mL/min (70-130); Calcium 8.1 mg/dL (7.8-10.44); Carbon Dioxide 20 mmol/L (23-31); Chloride 98 mmol/L (98-107); Estimated GFR-MDRD 13; Glucose 90 mg/dL (83-110); Magnesium 1.7 mg/dL (1.6-2.6); Phosphorus 3.4 mg/dL (2.3-4.7); Potassium 3.5 mmol/L (3.5-5.1); Sodium 130 mmol/L (136-145)
[2017-10-04] MEDS: Levothyroxine Sodium 75 MCG TAB PO SCH (05:38)
[2017-10-04] MEDS: Sodium Chloride 0.9% 1,000 ML IV SCH ×2 (05:40→20:58)
[2017-10-04 05:48] LABS: Eosinophils 1 % (0-10); Hemoglobin 10.3 g/dL (12.0-16.0); Lymphocytes 8 % (21-51); MDiff Complete? YES; Mean Corpuscular HGB CONC 32.3 g/dL (32.0-36.0); Mean Corpuscular Hemoglobin 28.5 pg (27.0-31.0); Mean Corpuscular Volume 88.4 fl (81.0-99.0); Mean Platelet Volume 8.1 fL (7.4-10.4); Monocytes 9 % (0-10); Myelocyte 1 % (0-0); Neutrophil 81 % (42-75); Platelet Count 139 thou/uL (130-400); RBC Distribution Width 15.3 % (11.5-14.5); Red Blood Cell (RBC) Count 3.63 mill/uL (4.20-5.40); White Blood Cell (WBC) Count 10.2 thou/uL (4.8-10.8)
[2017-10-04] MEDS: Mometasone/Formoterol 120 PUFF INHALER INH SCH ×2 (07:07→18:21)
[2017-10-04] MEDS: Metoprolol Tartrate 25 MG TAB PO SCH ×2 (08:30→20:50)
[2017-10-04] MEDS: Rivaroxaban 10 MG TAB PO SCH (08:31)
[2017-10-04] MEDS: Saccharomyces boulardii 250 MG CAP PO SCH ×2 (08:31→20:51)
[2017-10-04] MEDS: guaiFENesin ER 600 MG TAB PO SCH ×2 (08:31→20:50)
[2017-10-04] MEDS: FLUoxetine HCl 10 MG CAP PO SCH (08:32)
[2017-10-04] MEDS: Famotidine/PF 20 mg/2ml Vial SLOW IVP SCH ×2 (09:04→22:06)
--- NOTE | 2017-10-04 09:30 | PRG ---
DATE OF SERVICE: 10/04/2017 SUBJECTIVE: An 82-year-old female being seen for acute kidney injury. The patient denies any nausea, vomiting, or chest pain. PHYSICAL EXAMINATION: GENERAL: Patient is awake, alert. VITAL SIGNS: Afebrile, pulse 97, breathing at 16, blood pressure 146/53. OBJECTIVE: See above. Awake, alert, in no acute distress. GENERAL APPEARANCE AND MENTAL STATUS: Fair. HEAD/NECK: Normocephalic. Atraumatic. EYES: EOMI. No deformity. EARS: Clear. No ulcers. NOSE: Intact. No lesions. MOUTH: Clear. No discharge. THROAT: Clear. No exudate. LUNGS: Clear. No crackles. CARDIAC: S1, S2. No rub. ABDOMEN: Benign. BS+. GENITALIA/RECTUM: Moise absent. BACK/EXTREMITIES: Edema 0+ Ulcer- NEUROLOGICAL: Alert and motor intact. SKIN: Rash- Bruise- LYMPHATICS: Edema- Ulcer- LABORATORY: Hemoglobin 10.3. ASSESSMENT AND RECOMMENDATIONS: 1. Stage 5 chronic kidney disease, WITH JEANIE improved. 2. Hypertension, stable. 3. Anemia, stable. 4. Medication based on glomerular filtration rate are appropriate. MTDD
--- NOTE | 2017-10-04 09:51 | PRG ---
DATE OF SERVICE: 10/04/2017 SUBJECTIVE: She is weak, short of breath, multiple aches and pains, E. coli sepsis and UTI. Sensiti ve to Levaquin. Coughing is improved. OBJECTIVE: VITAL SIGNS: Sats are 93% on room air, respiration rate 18, temperature 98, pulse 108, blood pressur e 146/83. CHEST: Chest reveals decreased breath sounds, no wheezing. CARDIAC: Normal S1, S2, no gallops. ABDOMEN: Soft, no mass. IMPRESSION: 1. Urinary tract infection, gram-negative sepsis. 2. Renal failure. 3. Chronic cough, improved on Dulera and Mucinex. PLAN: Switch over to oral antibiotics as per Infectious Disease, PT and supportive care. DISPOSITION: Home as per primary care physician.
--- NOTE | 2017-10-04 11:38 | PDOC.PN ---
- Subjective Encounter Start Date: 10/04/17 Encounter Start Time: 11:37 Subjective: alert, no fever - Objective Resuscitation Status: Resuscitation Status FULL:Full Resuscitation MAR Reviewed: Yes Vital Signs & Weight: Vital Signs (12 hours) Temp Pulse Resp BP Pulse Ox 10/04/17 08:00 98.6 F 108 H 18 10/04/17 07:22 98.6 F 108 H 18 146/83 H 93 L 10/04/17 07:08 93 L 10/04/17 07:07 97 16 10/04/17 03:46 98.9 F 103 H 19 150/89 H 98 Weight Weight 177 lb 7 oz I&O: 10/03/17 10/04/17 10/05/17 06:59 06:59 06:59 Intake Total 3068 1655 Output Total 850 650 Balance 2218 1005 Result Diagrams: 10/04/17 04:34 10/04/17 04:34 Additional Labs: Accuchecks 10/03/17 20:48 POC Glucose 118 H Phys Exam - Physical Examination Neck: no JVD Respiratory: clear to auscultation bilateral Cardiovascular: RRR, no significant murmur Gastrointestinal: soft, non-tender Musculoskeletal: no edema Dx/Plan (1) Sepsis Code(s): A41.9 - SEPSIS, UNSPECIFIED ORGANISM Status: Acute Qualifiers: Sepsis type: Escherichia coli Qualified Code(s): A41.51 - Sepsis due to Escherichia coli [E. coli] (2) Bacteremia due to Escherichia coli Code(s): R78.81 - BACTEREMIA Status: Acute (3) UTI (urinary tract infection), bacterial Code(s): N39.0 - URINARY TRACT INFECTION, SITE NOT SPECIFIED; A49.9 - BACTERIAL INFECTION, UNSPECIFIED Status: Acute (4) CKD (chronic kidney disease) stage 5, GFR less than 15 ml/min Code(s): N18.5 - CHRONIC KIDNEY DISEASE, STAGE 5 Status: Chronic (5) HTN (hypertension) Code(s): I10 - ESSENTIAL (PRIMARY) HYPERTENSION Status: Chronic Qualifiers: Hypertension type: essential hypertension Qualified Code(s): I10 - Essential (primary) hypertension (6) Atrial fibrillation with controlled ventricular rate Code(s): I48.91 - UNSPECIFIED ATRIAL FIBRILLATION Status: Chronic - Plan transition to po antibx, home tomorrow -: cont metoprolol, xarelto * .
--- NOTE | 2017-10-04 12:19 | PRG ---
DATE OF SERVICE: 10/04/2017 SUBJECTIVE: The patient is tolerating diet. She has had no nausea, vomiting. She had her first bow el movement today. OBJECTIVE: VITAL SIGNS: Temperature 98.6, pulse 108, respiratory rate 20, blood pressure 148/83. CHEST: Clear. CARDIOVASCULAR: Regular rate and rhythm. ABDOMEN: Benign. LABORATORY DATA: Shows a sodium 130, CO2 20, BUN 64, creatinine 3.50. White blood cell count of 10. 2, hemoglobin 10.3. ASSESSMENT: 1. Urosepsis - improving. 2. Nausea, vomiting and diarrhea - resolved. RECOMMENDATIONS: 1. Continue present management. 2. We will sign off. Dr. Gaitan covering if needed.
[2017-10-04 13:08] VITALS: BMI 31.4
[2017-10-04] MEDS: Acetaminophen 325 MG TAB PO PRN (20:51)
[2017-10-04] MEDS ORDERED: Nystatin 500,000 UNITS/5 ML UDCUP SSW SCH (21:00)
[2017-10-05] MEDS: Nystatin 500,000 UNITS/5 ML UDCUP SSW SCH ×3 (05:03→15:35)
[2017-10-05] MEDS: Levothyroxine Sodium 75 MCG TAB PO SCH (05:03)
[2017-10-05] MEDS: Mometasone/Formoterol 120 PUFF INHALER INH SCH (07:12)
--- NOTE | 2017-10-05 08:20 | PDOC.PN ---
- Subjective Encounter Start Date: 10/05/17 Encounter Start Time: 08:18 Subjective: upset, does not want to be dced, wants to stay in hospital - Objective Resuscitation Status: Resuscitation Status FULL:Full Resuscitation MAR Reviewed: Yes Vital Signs & Weight: Vital Signs (12 hours) Temp Pulse Resp BP BP Pulse Ox 10/05/17 07:12 91 16 10/05/17 03:25 97.9 F 91 17 148/86 H 96 10/05/17 00:00 97.9 F 88 20 141/77 H 93 L 10/04/17 20:45 98.4 F 102 H 18 176/108 H 99 Weight Admit Weight 165 lb Weight 184 lb 9 oz I&O: 10/04/17 10/05/17 10/06/17 06:59 06:59 06:59 Intake Total 1655 1475 Output Total 650 1200 Balance 1005 275 Result Diagrams: 10/04/17 04:34 10/04/17 04:34 Phys Exam - Physical Examination Neck: no JVD Respiratory: clear to auscultation bilateral Cardiovascular: RRR, no significant murmur Gastrointestinal: soft, non-tender, positive bowel sounds Musculoskeletal: no edema Dx/Plan (1) Sepsis Code(s): A41.9 - SEPSIS, UNSPECIFIED ORGANISM Status: Acute Qualifiers: Sepsis type: Escherichia coli Qualified Code(s): A41.51 - Sepsis due to Escherichia coli [E. coli] (2) Bacteremia due to Escherichia coli Code(s): R78.81 - BACTEREMIA Status: Acute (3) UTI (urinary tract infection), bacterial Code(s): N39.0 - URINARY TRACT INFECTION, SITE NOT SPECIFIED; A49.9 - BACTERIAL INFECTION, UNSPECIFIED Status: Acute (4) CKD (chronic kidney disease) stage 5, GFR less than 15 ml/min Code(s): N18.5 - CHRONIC KIDNEY DISEASE, STAGE 5 Status: Chronic (5) HTN (hypertension) Code(s): I10 - ESSENTIAL (PRIMARY) HYPERTENSION Status: Chronic Qualifiers: Hypertension type: essential hypertension Qualified Code(s): I10 - Essential (primary) hypertension (6) Atrial fibrillation with controlled ventricular rate Code(s): I48.91 - UNSPECIFIED ATRIAL FIBRILLATION Status: Chronic - Plan difficult situation. acute illness resolved, demands to stay in hospital -: states she is anxious about going home, her request yesterday, -: states she will consider the [place], discussed with family * .
[2017-10-05] MEDS: guaiFENesin ER 600 MG TAB PO SCH (09:19)
[2017-10-05] MEDS: FLUoxetine HCl 10 MG CAP PO SCH (09:19)
[2017-10-05] MEDS: Famotidine/PF 20 mg/2ml Vial SLOW IVP SCH (09:19)
[2017-10-05] MEDS: Rivaroxaban 10 MG TAB PO SCH (09:19)
[2017-10-05] MEDS: Saccharomyces boulardii 250 MG CAP PO SCH (09:20)
[2017-10-05] MEDS: Metoprolol Tartrate 25 MG TAB PO SCH (09:20)
[2017-10-05] MEDS: Sodium Chloride 0.9% 1,000 ML IV SCH (09:22)
[2017-10-05 10:58] LABS: Hemoglobin 10.9 g/dL (12.0-16.0)
[2017-10-05 11:19] LABS: Anion Gap 13 mmol/L (10-20); BUN (Urea Nitrogen) 63 mg/dL (9.8-20.1); Calc. Creatinine Clearance 20 mL/min (70-130); Calcium 8.3 mg/dL (7.8-10.44); Carbon Dioxide 21 mmol/L (23-31); Chloride 102 mmol/L (98-107); Estimated GFR-MDRD 15; Glucose 130 mg/dL (83-110); Potassium 3.4 mmol/L (3.5-5.1); Sodium 133 mmol/L (136-145)
[2017-10-05] MEDS ORDERED: Potassium Chloride 20 MEQ TAB PO SCH (12:00)
--- NOTE | 2017-10-05 12:20 | PRG ---
DATE OF SERVICE: 10/05/2017 SUBJECTIVE: This morning, the patient is better, less cough, less shortness of breath. OBJECTIVE: VITAL SIGNS: Sats are 96% on room air, pulse 101, temperature 97, blood pressure 180/95. CHEST: Decreased breath sounds, no wheezing. CARDIAC: Normal S1, S2. No gallops. ABDOMEN: Soft, no masses. IMPRESSION: 1. Cough, improved. 2. Chronic renal failure, chronic pain. PLAN: Continue present treatment, PT and supportive care. We will follow.
--- NOTE | 2017-10-05 14:08 | PRG ---
DATE OF SERVICE: 10/05/2017 SUBJECTIVE: This is an 82-year-old female being seen for acute kidney injury. The patient denies an y nausea, vomiting, or chest pain. PHYSICAL EXAMINATION: GENERAL: The patient is awake and alert. VITAL SIGNS: Afebrile, pulse 94, breathing at 16, blood pressure 133/64. GENERAL APPEARANCE AND MENTAL STATUS: Fair. HEAD/NECK: Normocephalic. Atraumatic. EYES: EOMI. No deformity. EARS: Clear. No ulcers. NOSE: Intact. No lesions. MOUTH: Clear. No discharge. THROAT: Clear. No exudate. LUNGS: Clear. No crackles. CARDIAC: S1, S2. No rub. ABDOMEN: Benign. BS+. GENITALIA/RECTUM: Moise absent. BACK/EXTREMITIES: Edema 0+ Ulcer- NEUROLOGICAL: Alert and motor intact. SKIN: Rash- Bruise- LABORATORY DATA: Hemoglobin 10.9. Potassium 3.4, creatinine 2.9. ASSESSMENT AND RECOMMENDATIONS: 1. Acute kidney injury with chronic kidney disease stage 4, improving. 2. Hypertension, stable. 3. Anemia, stable. 4. Uremia, stable. 5. Hypokalemia. Recommend 40 mEq potassium. No indication for dialysis. We would recommend increa se protein intake.
[2017-10-05 15:56] VITALS: BP 169/84; TEMP 98.2
--- NOTE | 2017-10-05 18:11 | DIS ---
DATE OF ADMISSION: 10/01/2017 DATE OF DISCHARGE: 10/05/2017 PRIMARY CARE PROVIDER: Renetta Chakraborty M.D. 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 DISCHARGE MEDICATIONS: Levofloxacin 250 mg p.o. q. 2 days for 10 more days, metoprolol 12.5 mg twice a day, DuoNeb 3 mL q.4 hours p.r.n., Pepcid 10 mg twice a day, Tums 1000 mg q.4. p.r.n., Proventil HFA 2 puffs q.4 hours p.r.n., Dulera 200/5 two puffs b.i.d., Xarelto 10 mg daily, Florastor 250 mg tw ice a day, guaifenesin 600 mg q.12 hours, Prozac 10 mg a day, Synthroid 75 mcg a day, Protonix 40 mg a day, lorazepam 1-2 mg p.o. at bedtime. ALLERGIES: No known drug allergies. CODE STATUS: FULL. PENDING AT THE TIME OF DISCHARGE: Nothing. DIET: Heart healthy. HOSPITAL COURSE: The patient admitted to the [facility] for generalized wea kness. In the emergency room, she was found to have pyuria, a leukocytosis with a 14.7 white count a nd a 23% bandemia. Patient was started on IV antibiotics after blood and urine cultures, IV fluids. Selected home medicines were continued. During hospital stay, Dr. Agustín Joy with Nephrology was con sulted. Dr. Curtis Goins, Infectious Disease, was consulted. Dr. Salvador Rodriguez, Pulmonology, Dr. William Gordon, Gastroenterology on admission, sodium was 126, potassium 2.8, chloride 87, CO2 25, BUN 3.43, c reatinine 3.343, BUN 47. Lactic acid was 1.5. Liver function tests were normal. Early in her hospi talization, TSH was done, which was 2.57. Cortisol was 29.9. The patient's cultures, blood and urin e grew out 2/2 blood cultures and 1 out of 1 urine culture grew E. coli sensitive to cephalosporins a nd quinolones. The patient was initially treated with Levaquin and meropenem per Dr. Goins. The pat ient eventually was positive cultures, had meropenem discontinued and then was transitioned to Levaqu in 250 every other day because of her renal failure. On 10/02/2017, patient had some mild weakness a nd nausea. During her hospital course, the patient remained afebrile. Blood pressure was consistent ly good. Her white count rapidly came down from 14.7-11.4-10.8 on 10/03/2017. Her chemistries, her GFR remained in the 12-15 range during her hospital stay. Her sodium came up to 133. Because of mala e diarrhea, Dr. Gordon recommended a stool for C. diff. She always had formed stools, so test was not done. Dr. Agustín Joy followed her along for her stable chronic kidney disease stage 5. Dr. Salvador Rodriguez saw her, added Dulera to her neb treatments on 10/03/2017. She had a variety of aches and pains. N o fever, chills. Chest was clear. Heart, regular rate and rhythm. Abdomen was soft. On 10/04/2017 , she was transitioned to oral antibiotics. Discharge plans were discussed with her. She said she w anted to go home with home health with PT, OT, and nursing. We agreed to do this morning when I went into discuss the discharge with her. She stated that she did not want to leave the hospital that nneka christopher is still sick in the hospital for further sick and she just wanted to stay in the hospital. I expl ained to her that she no longer needed hospital care that she was on oral medicines and no longer in need of any inpatient care. She then stated that going home made her nervous and she was unable to g o home and stated she wished to be placed in [facility]. After discussion with family independence case manager, she was evaluated for [facility]. She was accepted and agreed to go there and she is being d ischarged there. Follow up with Dr. Chakraborty post-rehabilitation. No procedures were done with her i n her hospital stay. At time of discharge, temperature is 97.5, pulse 71, respirations 20, O2 sats 9 2 on room air, blood pressure ranging 102/66-121/72. Chest is clear. Heart has a regular rate and r hythm. She is medically stable, but unhappy with not being allowed to stay in the hospital longer.
[2017-10-05] MEDS ORDERED: Famotidine 20 MG TAB PO SCH (21:00)
--- NOTE | 2017-10-08 11:51 | PQF ---
DEE NEAL, [facility] [id number] CLINICAL DOCUMENTATION CLARIFICATION FORM: POST DISCHARGE DATE: 10/08/2017 ATTN: Dr. Banks Please exercise your independent, professional judgment in responding to the clarification form. Clinical indicators are provided on the bottom of this form for your review Please check appropriate box(s): [ ] Acute Renal Failure (ARF) / Acute Kidney Injury (JEANIE) due to (Please specify associated condition, if applicable): [ ] Acute Tubular Necrosis (ATN) [ ] Other Etiology or underlying conditions related to the diagnosis of ARF/ JEANIE: [ ] Other diagnosis (please specify) ] Unable to determine In addition, please specify: Present on Admission (POA): [ ] Yes [ ] No [ ] Unable to determine National Kidney Foundation Guidelines for CKD Staging Stage I Kidney damage with normal or increased GFRGFR > 90 Stage IIKidney damage with mildly decreased GFRGFR 60-89 Stage III Kidney damage with moderately decreased GFRGFR 30-59 Stage IVKidney damage with severely decreased GFRGFR 16-29 Stage VKidney failureGFR<15 ESRDEnd Stage Renal DiseaseOn dialysis Acute Renal Failure/Acute Kidney Failure defined as: Increases in SCr by (>) 0.3 mg/dl within 48 hours OR- Increases in SCr by (>) 1.5 times baseline, known or presumed to have occurred within the prior 7 days OR- Urine volume < 0.5 ml/kg/hour for 6 hours (KDIGO supplement 2012 for RIFLE/JANET criteria) For continuity of documentation, please document condition throughout progress notes and discharge summary. Thank You. CLINICAL INDICATORS - SIGNS / SYMPTOMS / LABS Abnormal labs BUN,59 on 10/02. Creatinine creatinine 3.43/3.31/3.56 on 10/01. 3.70 on 10/02. 3.76 on 10/03. 3.50 on 07/04. 2.98 on 10/05. Metabolic acidosis. Per H&P: On and off Nausea / Vomiting / Diarrhea. Generalized weakness. Per 10/02 progress note: Acute kidney injury with chronic kidney disease stage 5 , most likely because of sepsis and pyelonephritis induced acute tubular necrosis. Continue gently hydration. Per 10/01 consultations: Acute kidney injury with chronic kidney disease , stage 5, most likely due to decreased effective arterial blood volume. Continue with hydration. RISK FACTORS (per H&P/Progress Notes) Dehydration Stage 5 chronic kidney disease. Sepsis. UTI. TREATMENTS: (per progress notes) IV fluids. Nephrology consult. Correction of electrolytes / acidosis (This form is maintained as a part of the permanent medical record) 2014 [employer] All Rights Reserved Joan [email or web address] [phone] [email or web address]
== END 2017-10-05 19:52 | DRG 871 ==
LOC: ERS 23:50 → T4-A 10-01 02:25 → IMCU/EMU 10-01 19:10 → 2NO 10-02 17:20
PROVIDERS: ADMIT Family Medicine; ATTEND Family Medicine
DX: A41.51 Sepsis due to Escherichia coli [E. coli] (principal); G93.40 Encephalopathy, unspecified; N17.9 Acute kidney failure, unspecified; E87.1 Hypo-osmolality and hyponatremia; N39.0 Urinary tract infection, site not specified; I12.0 Hypertensive chronic kidney disease with stage 5 chronic kidney disease or end stage renal disease; N18.5 Chronic kidney disease, stage 5; E87.2 Acidosis; I48.2 Chronic atrial fibrillation; E78.5 Hyperlipidemia, unspecified; K21.9 Gastro-esophageal reflux disease without esophagitis; F41.9 Anxiety disorder, unspecified; G89.4 Chronic pain syndrome; M81.0 Age-related osteoporosis without current pathological fracture; M19.90 Unspecified osteoarthritis, unspecified site; E86.0 Dehydration; E87.6 Hypokalemia; E83.42 Hypomagnesemia; D69.59 Other secondary thrombocytopenia; Z87.891 Personal history of nicotine dependence; Z96.652 Presence of left artificial knee joint; Z79.899 Other long term (current) drug therapy
CPT/HCPCS: 36415; 36416; 51701; 70450; 71045; 74176; 76770; 80048; 80053; 80069; 81003; 81015; 82533; 83605; 83735; 83930; 83935; 84100; 84300; 84443; 85014; 85018; 85025; 86140; 87040; 87077; 87086; 87149; 87186; 93005; 94640; 94760; 96361; 96365; 96368; A4216; G8978-GP-CJ; G8978-GP-CK; G8979-GP-CH; G8979-GP-CI; J0696; J1956; J2185; J2405; J3010; J3475; J7050; Q0162; S0028

== ENCOUNTER 2017-11-17 08:56 | Emergency (ER) | payer MEDICARE, OTHER ==
[2017-11-17] MEDS ORDERED: Metoclopramide HCl 10 MG/2 ML VIAL ONE (09:20)
[2017-11-17] MEDS ORDERED: diphenhydrAMINE 50 MG/ML VIAL ONE (09:20)
[2017-11-17 09:30] LABS: #Eosinphils 0.2 thou/uL (0.0-0.7); #Lymphocytes 1.4 thou/uL (1.20-3.40); #Monocytes 0.6 thou/uL (0.11-0.59); #Neutrophils 4.9 thou/uL (1.40-6.50); %Basophils 0.6 % (0.0-1.0); %Eosinophils 2.9 % (0.0-10.0); %Lymphocytes 19.5 % (21.0-51.0); %Monocytes 8.4 % (0.0-10.0); %Neutrophils 68.5 % (42.0-75.0); Hemoglobin 11.6 g/dL (12.0-16.0); Mean Corpuscular HGB CONC 33.8 g/dL (32.0-36.0); Mean Corpuscular Hemoglobin 30.4 pg (27.0-31.0); Mean Corpuscular Volume 89.8 fL (78.0-98.0); Mean Platelet Volume 6.4 fL (7.4-10.4); Platelet Count 256 thou/uL (130-400); RBC Distribution Width 15.6 % (11.5-14.5); Red Blood Cell (RBC) Count 3.81 mill/uL (4.20-5.40); White Blood Cell (WBC) Count 7.2 thou/uL (4.8-10.8)
[2017-11-17 09:36] LABS: INR-International Normal Ratio 1.2; PTT 36.5 SEC (22.9-36.1); Prothrombin Time 15.7 SEC (12.0-14.7)
[2017-11-17 09:50] LABS: AST (SGOT) 17 U/L (5-34); Albumin 4.4 g/dL (3.4-4.8); Anion Gap 14 mmol/L (10-20); BUN (Urea Nitrogen) 21 mg/dL (9.8-20.1); Bilirubin, Total 0.6 mg/dL (0.2-1.2); Calc. Creatinine Clearance 0 mL/min (70-130); Calcium 9.5 mg/dL (7.8-10.44); Carbon Dioxide 24 mmol/L (23-31); Chloride 101 mmol/L (98-107); Estimated GFR-MDRD 35; Globulin 3.1 g/dL (2.4-3.5); Glucose 98 mg/dL (83-110); Protein, Total 7.5 g/dL (6.0-8.3); Sodium 135 mmol/L (136-145)
[2017-11-17 09:54] LABS: ALT (SGPT) 9 U/L (8-55); Alkaline Phosphatase 69 U/L (40-150)
--- NOTE | 2017-11-17 10:15 | CT ---
CT OF THE BRAIN WITHOUT CONTRAST: INDICATION: History of headache. COMPARISON: Prior exam dated 10/01/17. FINDINGS: No acute infarct, hemorrhage, or hydrocephalus is present. Remote infarct involving the cerebellar h emispheres is similar-appearing. Moderate chronic small-vessel white matter ischemic change is stabl e. The skull and extracranial soft tissues appear within normal limits. IMPRESSION: No acute intracranial abnormality. POS: [facility]
[2017-11-17] MEDS ORDERED: Acetaminophen 325 MG TAB ONE (11:36)
== END 2017-11-17 11:40 | disposition home or self-care (01) ==
LOC: ERS 08:56
DX: R51 Headache (principal); I48.91 Unspecified atrial fibrillation; I10 Essential (primary) hypertension; Z87.891 Personal history of nicotine dependence; Z79.899 Other long term (current) drug therapy; Z79.01 Long term (current) use of anticoagulants
CPT/HCPCS: 70450; 80053; 85025; 85610; 85730; 96365; 96366; 96375; J1200; J2765

== ENCOUNTER 2017-11-28 18:35 | Inpatient (IN) | payer MEDICARE, OTHER ==
--- NOTE | 2017-11-28 19:28 | CT ---
CT CERVICAL SPINE WITH CORONAL AND SAGITTAL REFORMATIONS: 11/28/17 HISTORY: Injury, neck pain. FINDINGS/IMPRESSION: Multilevel degenerative changes are seen. No acute fracture or facet malalignment is noted. There is minimal anterolisthesis of C2 over C3, C7 over T1 and T1 over T2 vertebral bodies and minimal retroli sthesis of C4 over C5 vertebral bodies likely due to degenerative changes. No acute fracture or dislo cation is seen. POS: [facility]
[2017-11-28 19:43] LABS: #Lymphocytes 1.3 thou/uL (1.20-3.40); #Monocytes 1.4 thou/uL (0.11-0.59); #Neutrophils 12.1 thou/uL (1.40-6.50); %Basophils 0.2 % (0.0-1.0); %Eosinophils 0.2 % (0.0-10.0); %Lymphocytes 8.6 % (21.0-51.0); %Monocytes 9.7 % (0.0-10.0); %Neutrophils 81.2 % (42.0-75.0); Hemoglobin 14.3 g/dL (12.0-16.0); Mean Corpuscular HGB CONC 31.9 g/dL (32.0-36.0); Mean Corpuscular Volume 94.2 fL (78.0-98.0); Platelet Count 294 thou/uL (130-400); RBC Distribution Width 17.8 % (11.5-14.5); Red Blood Cell (RBC) Count 4.75 mill/uL (4.20-5.40); White Blood Cell (WBC) Count 14.9 thou/uL (4.8-10.8)
[2017-11-28 19:49] LABS: INR-International Normal Ratio 1.1; PTT 32.2 SEC (22.9-36.1); Prothrombin Time 14.7 SEC (12.0-14.7)
--- NOTE | 2017-11-28 20:00 | CT ---
CT BRAIN WITHOUT CONTRAST 11/28/17 HISTORY: Altered mental status, left sided weakness and slurred speech. FINDINGS: An acute large right MCA infarction is seen with tiny foci of slightly increased densities suspicious for hemorrhage. There is mass effect on the right lateral ventricle with 5 mm midline shift of the l eft. The bony calvarium is intact. The visualized paranasal sinuses and mastoid air cells are well ae rated. There is an old infarction in the left cerebellar hemisphere. IMPRESSION: Acute right MCA infarction with questionable tiny foci of hemorrhage and mild midline shift to the le ft. Report was called over the telephone to charge nurse in the Emergency Room, Carla Leonard RN at 7:12 p.m. POS: [facility]
[2017-11-28 20:04] LABS: ALT (SGPT) 13 U/L (8-55); AST (SGOT) 26 U/L (5-34); Albumin 4.4 g/dL (3.4-4.8); Alkaline Phosphatase 72 U/L (40-150); Anion Gap 20 mmol/L (10-20); BUN (Urea Nitrogen) 32 mg/dL (9.8-20.1); Bilirubin, Total 0.9 mg/dL (0.2-1.2); CK (CPK) 399 U/L (29-168); Calc. Creatinine Clearance 0 mL/min (70-130); Calcium 9.9 mg/dL (7.8-10.44); Carbon Dioxide 18 mmol/L (23-31); Chloride 105 mmol/L (98-107); Estimated GFR-MDRD 32; Globulin 3.3 g/dL (2.4-3.5); Glucose 138 mg/dL (83-110); Potassium 4.4 mmol/L (3.5-5.1); Protein, Total 7.7 g/dL (6.0-8.3); Sodium 139 mmol/L (136-145)
--- NOTE | 2017-11-28 20:06 | RAD ---
PORTABLE CHEST ONE VIEW 11/28/17 at 6:01 p.m. HISTORY: Slurred speech, left sided weakness. FINDINGS/IMPRESSION: Comparison is made with the exam of 10/01/17. The heart size is enlarged. The aorta is tortuous. No lobar consolidation, pneumothoraces, xander pulm onary edema or large effusions are seen. POS: [facility]
--- NOTE | 2017-11-28 20:07 | RAD ---
LEFT SHOULDER THREE VIEWS: 11/28/17 HISTORY: Left shoulder pain. Injury. FINDINGS/IMPRESSION: Degenerative changes are present. No acute fracture or dislocation is identified. POS: [facility]
[2017-11-28 20:08] LABS: CKMB 4.7 ng/mL (0-6.6); Troponin I 0.036 ng/mL (< 0.028)
[2017-11-28 20:18] LABS: Bilirubin Negative (Negative); Blood, Urine Trace (Negative); Clarity CLOUDY (Clear); Glucose, Urine (Dipstick) Negative (Negative); Leukocyte Trace (Negative); Nitrite Negative (Negative); Protein, Urine (Dipstick) 100 mg/dL (Neg-Trace); Specific Gravity, Urine 1.016 (1.002-1.036); Urobilinogen 0.2 mg/dL (0.2-1.0)
[2017-11-28 20:22] LABS: Bacteria/HPF None Seen HPF (None Seen); Hyaline Casts/LPF 4-6 HYALINE CAST LPF (0-3 Hyaline); Pathc Cast-AUWi Flag 0.72 (0-2.49); RBC/HPF 0-3 HPF (0-3); Squamous Epithelial 0-3 HPF (0-3); WBC/HPF 0-3 HPF (0-3)
[2017-11-28] MEDS ORDERED: Ondansetron HCl/PF 4 MG/2 ML Vial IVP PRN (21:55)
[2017-11-28 23:36] LABS: Troponin I 0.049 ng/mL (< 0.028)
[2017-11-28 23:56] VITALS: BMI 27.3
[2017-11-29 02:17] LABS: Troponin I 0.063 ng/mL (< 0.028)
--- NOTE | 2017-11-29 04:36 | HP ---
TIME OF EVALUATION: 9:40 p.m. CODE STATUS: FULL CODE. PRIMARY CARE PHYSICIAN: Dr. Renetta Chakraborty. CHIEF COMPLAINT: Change in mental status and left-sided weakness. HISTORY OF PRESENT ILLNESS: This is an 82-year-old female patient with past medical history of atria l fibrillation, hypertension, who came to the hospital after having been found on the floor with sweet ge in mental status, left-sided weakness. The last time, the patient was seen normal, it was on Mond ay, family member, daughter is at bedside who is the decision maker. They do not know what happened to the patient when the problem happened. She was found to have change in mental status and complete left-sided weakness, being unable to stand up and walk with no clear triggers, no alleviating factor s, symptoms are severe with new neurological symptoms. The patient also have associated slurred spee ch. REVIEW OF SYSTEMS: Unable to obtain as the patient is confused. PAST MEDICAL HISTORY: Atrial fibrillation, hypertension. PAST SURGICAL HISTORY: Laminectomy; bladder lift; bilateral knee replacement; left lower extremity s urgery, status post as a child; hysterectomy; tonsillectomy; hemorrhoidectomy. PSYCHIATRIC HISTORY: No previous psychiatric history. SOCIAL HISTORY: Drinks socially. No drugs. Former cigarette user, quit smoking more than 10 years ago. ALLERGIES: No known drug allergies. FAMILY HISTORY: Unknown. REPORTED MEDICATIONS: Amlodipine, metoprolol, Xarelto, unknown when was the last time the patient to ok medication, the patient is unable to tell. PHYSICAL EXAMINATION: VITAL SIGNS: On presentation, blood pressure 172/107; during my examination, blood pressure was 214/ 114, heart rate 101, respiratory rate was 32, temperature 98.9. GENERAL APPEARANCE: The patient is lethargic, occasionally she wakes up answer and follows simple co mmands, after that she becomes lethargic again and fall asleep, not in any acute distress. HEAD AND EYES: Normal conjunctivae. Moist oral mucosa. Anicteric. NECK: No JVD. RESPIRATORY: Bilateral air entry. No rales, no wheezing. Symmetric expansion. CARDIOVASCULAR: Normal rate, regular rhythm. No murmurs, no gallop. EXTREMITIES: No edema. ABDOMEN: Soft, normal bowel sounds. MUSCULOSKELETAL: Baseline range of motion and strength. No tenderness. SKIN: Warm and intact. No pallor, no rash, no redness. NEUROLOGIC: Patient has left-sided weakness with deviation of gaze to the right side, slurred speech , lethargy. PSYCHIATRIC: Unable to fully explore. IMAGING: EKG shows atrial fibrillation with RVR at a rate of 106 with ER able to determine QRS 80, Q T corrected 470. Radiology: Brain CT was done, which showed acute right MCA infarction with questio nable tiny foci of hemorrhage in mild midline shift to the left. Chest x-ray was reviewed, the patie nt's heart size is enlarged, aorta . No lower consolidation or pneumothorax or xander pulmonary edema or large effusions are seen. Shoulder x-ray was done, patient has degenerative changes are pre sent. No acute fracture or dislocation is identified. Cervical spine CT was done, the patient had m ultilevel degenerative changes are seen. No acute fracture or facet malalignment is noted. There is minimal anterolisthesis of C2-C3, C7-T1, and T1-T2 vertebral bodies, minimal retrolisthesis of C4-C5 vertebral bodies, likely due to degenerative changes, no acute fracture or dislocation is seen. LABORATORY DATA: Reviewed. The patient has white count of 14.9 with hemoglobin 14.3, MCV 94.2, plat elet count 294,000, neutrophils 81. Coagulation: PT 14.7, INR 1.1, PTT 32.2. Chemistry: Sodium 13 9, potassium 4.4, chloride 105, carbon dioxide 18, anion gap 20, BUN 32, creatinine 1.55; on previous visit, the creatinine was about the same with 1.45. GFR 32, glucose 138. CK 399. Troponin was 0.0 36 and the second one was 0.049 and third one was 0.063. The UA was basically negative. ASSESSMENT AND PLAN: The patient has been placed in ICU for the following medical condition: Critical care time was more than 35 minutes spent in bedside assessments, coordination of care, revie wing elaboration of records. 1. Acute right middle cerebral artery infarction with questionable foci of hemorrhage in midline wit h shift to the left. The patient is lethargic, still protecting airways. We will monitor ventilator y status overnight, in the worst case scenario, the patient is unable to protect airway, she may need intubation. We will do a stroke protocol. Dr. Joel was called from ER, report given possibility f or a foci of hemorrhage, especially the patient being on Xarelto for atrial fibrillation. No need fo r any acute intervention at this point. Blood pressure has been very high in the range of 214/114, g iven the history of Xarelto and possibility for hemorrhage. We will control blood pressure for now. 2. Hypertensive emergency with blood pressure 214/114 during my evaluation in a patient with acute r ight middle cerebral artery stroke. There is a large, possibility for bleeding due to patient being on anticoagulation, we will place the patient on Cardene drip to control blood pressure for now given high risk for bleeding due to the above-mentioned factors. We will monitor. We will adjust treatme nt as needed. 3. History of atrial fibrillation, rate is controlled, we will monitor. 4. Deep venous thrombosis prophylaxis.
[2017-11-29 04:56] LABS: #Lymphocytes 1.7 thou/uL (1.20-3.40); #Monocytes 1.7 thou/uL (0.11-0.59); #Neutrophils 11.2 thou/uL (1.40-6.50); %Basophils 0.1 % (0.0-1.0); %Eosinophils 0.2 % (0.0-10.0); %Lymphocytes 11.8 % (21.0-51.0); %Monocytes 11.7 % (0.0-10.0); %Neutrophils 76.2 % (42.0-75.0); Hemoglobin 12.7 g/dL (12.0-16.0); Mean Corpuscular HGB CONC 33.7 g/dL (32.0-36.0); Mean Corpuscular Hemoglobin 31.1 pg (27.0-31.0); Mean Corpuscular Volume 92.1 fL (78.0-98.0); Mean Platelet Volume 6.4 fL (7.4-10.4); Platelet Count 289 thou/uL (130-400); RBC Distribution Width 17.7 % (11.5-14.5); Red Blood Cell (RBC) Count 4.09 mill/uL (4.20-5.40); White Blood Cell (WBC) Count 14.7 thou/uL (4.8-10.8)
[2017-11-29 05:16] LABS: Anion Gap 18 mmol/L (10-20); BUN (Urea Nitrogen) 31 mg/dL (9.8-20.1); Calc. Creatinine Clearance 35 mL/min (70-130); Calcium 9.5 mg/dL (7.8-10.44); Carbon Dioxide 19 mmol/L (23-31); Cardiac Risk 3.8 (Less than 4.5); Chloride 107 mmol/L (98-107); Cholesterol 219 mg/dl (< 200 Desired); Estimated GFR-MDRD 38; Glucose 128 mg/dL (83-110); HDL Cholesterol 57 mg/dL (>60 Neg Risk); LDL Cholesterol, Calculated 144 mg/dL; Potassium 4.2 mmol/L (3.5-5.1); Sodium 140 mmol/L (136-145); Triglycerides 89 mg/dL (Less than 150)
--- NOTE | 2017-11-29 08:24 | ULT ---
CAROTID DUPLEX SONOGRAM: Date: 11/29/17 HISTORY: CVA. Vascular disease. RIGHT: Scattered areas of atherosclerotic plaque. Color and spectral Doppler evaluation, peak systolic veloc ity of 73 cm/second, and ICA/CCA ratio of 0.7 suggests no hemodynamically significant stenosis within the extracranial right ICA. Antegrade flow is present within the vertebral artery. LEFT: Mild plaque. Color and spectral Doppler evaluation, peak systolic velocity of 55 cm/second, and ICA/C CA ratio of 0.7 suggests no hemodynamically significant stenosis within the extracranial left ICA. An tegrade flow is present within the vertebral artery. IMPRESSION: Atherosclerosis. No sonographic evidence of significant extracranial ICA stenosis. POS: [facility]
[2017-11-29] MEDS ORDERED: Prevnar 13-Val Conj/PF 0.5 ML SYRINGE IM ONE (09:00)
--- NOTE | 2017-11-29 10:09 | PDOC.PN ---
- Subjective Encounter Start Date: 11/29/17 (f/u stroke) Encounter Start Time: 10:07 Subjective: Pt admitted overnight for right MCA stroke. Cardene gtt off as bp' s have -: been in the normal range. - Objective Vital Signs & Weight: Vital Signs (12 hours) Temp Pulse Pulse Pulse Resp BP Pulse Ox 11/29/17 08:50 90 103 H 131/73 11/29/17 04:00 97.7 F 11/29/17 00:00 97.5 F L 111 H 29 H 100 Most Recent Monitor Data Heart Rate from ECG 83 NIBP 135/75 NIBP BP-Mean 94 Respiration from ECG 28 SpO2 98 I&O: 11/28/17 11/29/17 11/30/17 06:59 06:59 06:59 Intake Total 170 Output Total 735 Balance -565 Result Diagrams: 11/29/17 04:36 11/29/17 04:36 EKG Reviewed by me: Yes (a fib with rate 90-100's) Phys Exam - Physical Examination Constitutional: NAD oriented to person and place. Pt denies she had a stroke left facial droop, eomi - not passing midline to left Neck: no nodes ttp along the right trapezius Respiratory: no wheezing, no rales, no rhonchi Cardiovascular: no significant murmur, irregular Gastrointestinal: soft, non-tender, no distention, positive bowel sounds Musculoskeletal: no edema movement of right arm and leg. left leg - able to move some spontaneously no movement of left arm Deviation from normal: able to answer questions without difficulty Skin: no rash Dx/Plan (1) Acute right MCA stroke Code(s): I63.511 - CEREB INFRC D/T UNSP OCCLS OR STENOS OF RIGHT MID CEREB ART Status: Acute (2) Chronic kidney disease Code(s): N18.9 - CHRONIC KIDNEY DISEASE, UNSPECIFIED Status: Chronic Qualifiers: Chronic kidney disease stage: stage 3 (moderate) Qualified Code(s): N18.3 - Chronic kidney disease, stage 3 (moderate) (3) Atrial fibrillation with controlled ventricular rate Code(s): I48.91 - UNSPECIFIED ATRIAL FIBRILLATION Status: Chronic - Plan * Stroke - Neurology consulted. Pt is not on aspirin due to concern for hemorrhage within the stroke - MRI completed wiht result pending * * a fib - rate controlled currently with normal bp. May need to add a rate controlling agent. * ckd stable - follow closely * * for now pt will remain in the ICU due to risk of hemorrhagic conversion. * * start ivf, await speech eval for swallowing * pt/ot/stroke team00 * * bp controlled - normal off the cardene - monitor. Permissive htn was not instituted overngiht due to hemorrhage in stroke * * dvt prophy - scd's for now * gi prophy - IV famotidine. * code status full * * discussed plan of care with RN, no questions or further needs at end of eval
[2017-11-29] MEDS: Sodium Chloride 0.9% 1,000 ML IV SCH (10:55)
[2017-11-29] MEDS: Lidocaine 5% Patch TD SCH (11:38)
--- NOTE | 2017-11-29 12:25 | MRI ---
NONCONTRAST MRI BRAIN: 11/29/2017 HISTORY: Altered mental status. Left-sided weakness. Slurred speech. CVA/stroke. COMPARISON: CT head on 11/28/2017. FINDINGS: There is a large area of increased FLAIR and T2 weighted signal intensity involving the right frontal and temporal lobes, and this area also demonstrates restricted diffusion and is compatible with an a cute right MCA distribution infarction. The infarction also involves the right basal ganglia. There is an area of altered signal intensity seen within the right basal ganglia, along both the caudate n ucleus and the lentiform nucleus, which demonstrates decreased signal intensity on the gradient echo images, consistent with an area of hemorrhage, related to hemorrhagic transformation of a right MCA d istribution infarction. There is sulcal effacement, as well as mild effacement of the right lateral ventricle, secondary to e luciano from the acute infarction. There is shift of the midline structures from right to left, measuri ng approximately 4 mm. There is a small, approximately 8 mm focus of restricted diffusion seen within the posterior aspect r ight temporal parietal region, which is compatible with a tiny remote lacunar infarction, also in the distribution of the right posterior cerebral artery. There are scattered patchy and confluent areas of increased FLAIR and T2 weighted signal intensity in the periventricular and subcortical white matter, which are nonspecific but likely reflective of mod erate to severe chronic small vessel ischemic changes. There is an increased T2 weighted signal intensity area seen within the left cerebellar hemisphere, c onsistent with a small remote infarction. Grossly appropriate flow voids are demonstrated at the base of the brain. However, there is mildly i ncreased T2 weighted signal intensity involving a small portion of the distal left vertebral artery. I am unsure if this is artifactual or related to a focal area of severe narrowing. However, this wo uld be better evaluated with either MRA or CTA of the brain. Incidental note is made of an empty sella turcica. Small mastoid effusions are seen on the left. The paranasal sinuses are clear. The orbits and skull base are otherwise within normal limits. There are prominent degenerative changes involving the cervical spine, with signal alteration, likely related to prominent pannus formation at the level of the odontoid and anterior arch of C1. This do es encroach on the cervicomedullary junction at this level. IMPRESSION: 1. Large acute right middle cerebral artery distribution infarction with hemorrhagic transformation. There is resultant sulcal effacement and mass effect on the right lateral ventricle, as well as anisha ft of the midline structures to the left. 2. Remote infarction, left cerebellar hemisphere, with moderate to severe chronic small vessel ische jitendra changes. 3. Mild cerebral volume loss. 4. Signal alteration in the left vertebral artery. Focal severe narrowing is suggested; MRA versus CTA would be a better study for further evaluation. 5. Incidental note made of an empty sella turcica. 6. Prominent degenerative changes at the articulation of the odontoid with C1 with prominent pannus formation seen posteriorly, encroaching on the cervicomedullary junction. POS: [facility]
--- NOTE | 2017-11-29 12:39 | CON ---
DATE OF CONSULTATION: 11/29/2017 CHIEF COMPLAINT: Acute stroke. HISTORY OF PRESENT ILLNESS: Patient is an 82-year-old lady who is very independent according to the family. Daughter lives in [place] and patient wanted to live at home by herself. She has had series of medical issues since last March. She has had shingles and recently in September, she had renal failure and she has chronic atrial fibrillation and hypertension and she is on Xarelto for the same. Patient has a floral designer, a friend who she is supposed to meet yesterday and she did not show up and friend called the family and floral designer went to the family home and found her on the floor in a very uncomfortable position with her neck to the left side and she was immediately brought to the hospital and during the ER visit, she was noted to have arm weakness, facial droop, left arm and leg weakness and she was found down and she has not been talking much and has been somewhat sleepy since admission to ICU, but patient's family reports she has been waking up for them. PREVIOUS MEDICAL HISTORY: Rheumatoid arthritis, atrial fibrillation, hypertension, and recent kidney failure. PAST SURGICAL HISTORY: She had a laminectomy, bladder lift, bilateral knee replacement. ALLERGIES: No known drug allergies. HOME MEDICATIONS: She takes amlodipine, metoprolol, and Xarelto. FAMILY HISTORY: Positive for cancer in her father. Mother had intestinal obstruction and lived till . REVIEW OF SYSTEMS: Unobtainable due to patient's level of alertness. LABORATORY DATA AND IMAGING DATA: White count 14.7, hemoglobin 12.7, hematocrit 37.7, platelets 289. PT 14.7, INR 1.1, PTT 32.2. Sodium 140, potassium 4.2, chloride 107, bicarbonate 19, BUN 31, creatinine 1.34, glucose 128 and cholesterol 219. Triglycerides 89, LDL 144, HDL 57 and UA is positive for protein, trace blood, trace leukocyte esterase. PT 14.7, INR 1.1, PTT 32.[address] scan of the head from 11/28/2017 shows acute right MCA infarct with questionable tiny foci of hemorrhage and mild midline shift to the left and her MRI was reviewed with the radiologist and patient has right MCA infarct with hemorrhage in the basal ganglia. She also has chronic white matter ischemic changes. PHYSICAL EXAMINATION: VITAL SIGNS: Blood pressure is 122/76, pulse is 101, respiratory rate 24, O2 sats 99%. GENERAL APPEARANCE: Thin built, well nourished lady who seems to be comfortable in bed and has slight external rotation of her left lower limb and upper limb. CHEST: Clear vesicular breathing. CARDIOVASCULAR: S1, S2 heard, no murmurs. Carotids clear. ABDOMEN: Soft, nontender, no organomegaly noted. NEUROLOGIC: Patient is sleepy and does not seem to move much spontaneously except for spontaneous right lower extremity movement, does not respond to and wake up. She does seems to follow simple commands such as performing hand tools administrator or moving her right lower extremity. Cranial nerve examination; facial asymmetry with left facial droop. She did not open her mouth for me to evaluate her tongue or oral cavity and the pupils 1 mm and nonreactive to light and grimaces to touch. MOTOR: Flaccid left upper and lower extremity with decreased tone. Right upper extremity; she performs hand tools administrator and also elevates her right lower extremity against gravity. Detailed muscle group testing cannot be performed. SENSORY/CEREBELLAR: Unable to test. Gait not tested. IMPRESSION: The patient is an 82-year-old lady with a right MCA dense infarct with history of being atrial fibrillation and she is currently on Xarelto. At this time, the patient is unresponsive to stimuli and she is not very awake, responsive to any verbal stimuli except she will follow some commands for us and clinical diagnosis is consistent with right MCA CVA with hemorrhagic conversion. RECOMMENDATIONS: 1. Please follow acute stroke protocol and blood pressure parameters to allow permissive hypertension. 2. I discussed the case with daughter and shared the MRI films and the findings with her. 3. She is evaluated by speech before allowing her to swallow. 4. Complete her stroke workup including echocardiogram and carotid Dopplers. 5. I will follow up the patient with you. Agree with holding Xarelto for now. KATIA
--- NOTE | 2017-11-29 17:23 | PRG ---
DATE OF SERVICE: 11/29/2017 30 minutes were spent in reviewing the imaging record, evaluation, examination of patient, and formul ation of plan. Greater than 50% of the time was spent counseling. CHIEF COMPLAINT: Large right-sided MCA stroke with left-sided hemiparesis. HISTORY OF PRESENT ILLNESS: Ms. Mantilla is an 82-year-old woman. She is on Xarelto for atrial fibr illation. She is a patient of Dr. Chakraborty. Last time, she was seen and her normal state was on Mond ay of this week, but was found yesterday to have left-sided weakness. A head CT demonstrated a large right MCA stroke with involvement of the basal ganglia and internal capsule. An MRI confirms this w ith some element of hemorrhagic conversion. There is some mass effect and mild midline shift. PHYSICAL EXAMINATION: The patient is drowsy, but she does alert and answer questions appropriately a nd speaks appropriately. She has left upper motor neuron pattern facial droop and left arm weakness. She has had some trace movement of the left leg. She moves her right side well. Her speech is pre served. IMPRESSION AND PLAN: There is no role for neurosurgical intervention here such as hemicraniectomy. We will continue to follow the patient: Obviously, the plan for this patient will be rehabilitation. DIAGNOSES: Right middle cerebral artery stroke, left-sided weakness.
--- NOTE | 2017-11-29 18:27 | CON ---
DATE OF SERVICE: 11/29/17 HISTORY OF PRESENT ILLNESS: Ms. Mantilla is an 82-year-old female who was admitted after being found to have a change in mental status and left-sided weakness. Imaging has shown a right middle cerebral artery distribution infarction with a small focus of hemorrhage. Today shows hemorrhagic transformation. There is a mass effect. Neurosurgery has been consulted. Surprisingly, she is hemiplegic and slightly dysarthric, but she is quite coherent history. PAST MEDICAL HISTORY: Remarkable for atrial fibrillation, hypertension, bladder suspension, knee replacement bilaterally, hysterectomy, tonsillectomy, and hemorrhoidectomy as well as laminectomy. SOCIAL HISTORY: She is nonsmoker, nondrinker. She is a former smoker. ALLERGIES: She has no drug allergies. FAMILY HISTORY: Negative for lung disease in early age. REVIEW OF SYSTEMS: 10 point system review completed; otherwise negative. PHYSICAL EXAMINATION: GENERAL: Ms. Mantilla is an 82-year-old female VITAL SIGNS: Blood pressure 151/83, heart rate 101, respiratory rate 28, oximetry is 100%. HEENT: Pupils react. Sclerae is anicteric. She is still mildly dysarthric. to follow commands with the right side. NECK: Supple, without lymphadenopathy. LUNGS: Clear. She does have a voice that is indicative of her having a little bit of trouble with his secretions. HEART: Regular rhythm. ABDOMEN: Soft and nontender. EXTREMITIES: Without asymmetry. LABORATORY DATA: White count 14.7, hemoglobin 12.7, platelets 289. Sodium 140, potassium 4.2, chloride 107, bicarbonate 19, BUN 31, creatinine 1.34. 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 PLAN: Continue supportive care of the Critical Care Unit. Neurosurgery input will be appreciated. This is a 70 minute consult with greater than 50% of time spent on unit with coordination of care. KATIA
[2017-11-29] MEDS: Famotidine/PF 20 mg/2ml Vial SLOW IVP SCH (21:43)
[2017-11-29] MEDS: Acetaminophen 650 MG Suppository PR PRN (21:58)
[2017-11-29] MEDS ORDERED: Lidocaine Patch Removal 1 EACH TOP SCH (22:30)
[2017-11-30] MEDS: Sodium Chloride 0.9% 1,000 ML IV SCH ×2 (00:49→12:35)
[2017-11-30] MEDS: Acetaminophen 650 MG Suppository PR PRN ×2 (03:04→21:21)
[2017-11-30 04:37] LABS: #Basophils 0.1 thou/uL (0.0-0.2); #Eosinphils 0.2 thou/uL (0.0-0.7); #Lymphocytes 1.4 thou/uL (1.20-3.40); #Monocytes 1.1 thou/uL (0.11-0.59); #Neutrophils 6.9 thou/uL (1.40-6.50); %Basophils 0.5 % (0.0-1.0); %Eosinophils 2.2 % (0.0-10.0); %Lymphocytes 14.2 % (21.0-51.0); %Neutrophils 72.1 % (42.0-75.0); Hemoglobin 11.7 g/dL (12.0-16.0); Mean Corpuscular HGB CONC 33.5 g/dL (32.0-36.0); Mean Corpuscular Hemoglobin 31.6 pg (27.0-31.0); Mean Corpuscular Volume 94.5 fL (78.0-98.0); Mean Platelet Volume 6.5 fL (7.4-10.4); Platelet Count 239 thou/uL (130-400); White Blood Cell (WBC) Count 9.5 thou/uL (4.8-10.8)
[2017-11-30 04:57] LABS: Anion Gap 16 mmol/L (10-20); BUN (Urea Nitrogen) 30 mg/dL (9.8-20.1); Calc. Creatinine Clearance 48 mL/min (70-130); Carbon Dioxide 20 mmol/L (23-31); Chloride 112 mmol/L (98-107); Estimated GFR-MDRD 55; Glucose 88 mg/dL (83-110); Potassium 3.7 mmol/L (3.5-5.1); Sodium 144 mmol/L (136-145)
--- NOTE | 2017-11-30 08:25 | CT ---
PRELIMINARY REPORT/[facility]/EMERGENCY AFTER HOURS PROCEDURE: EXAM: CT Head Without Intravenous Contrast CLINICAL HISTORY: 82 years old, female; Condition or disease; Other: Mca; Patient HX: F/u right mca and hemorrage. TECHNIQUE: Axial computed tomography images of the head/brain without intravenous contrast. COMPARISON: CT Brain WO Con 2017-11-28 19:01 FINDINGS: Brain: No significant change in large right MCA distribution infarct with 2 mm of subfalcine herniati on to the left. No definite acute intracranial hemorrhage visualized. Chronic microvascular white mat ter changes and volume loss. Ventricles: No acute findings. No ventriculomegaly. Bones/joints: No acute findings. No acute fracture. Soft tissues: No acute findings. Sinuses: Unremarkable as visualized. No acute sinusitis. Mastoid air cells: Unremarkable as visualized. No mastoid effusion. IMPRESSION: No significant change in large right MCA distribution infarct with 2 mm of subfalcine herniation to t he left. No hydrocephalus or axial herniation. Thank you for allowing us to participate in the care of your patient. Dictated and Authenticated by: Rivas Bello MD 11/30/2017 4:00 AM Central Time ([place] & [place]) FINAL REPORT CT BRAIN WITHOUT CONTRAST: Date: 11/30/17 HISTORY: Follow-up hemorrhage. Follow-up infarction. COMPARISON: CT brain dated 11/28/17. FINDINGS/IMPRESSION: Findings and impression are concordant with the preliminary report by Jennifer. There is hemorrhagic transformation along the right basal ganglia and caudate head. POS: CET
[2017-11-30] MEDS ORDERED: Lidocaine 5% Patch TD SCH (09:00)
--- NOTE | 2017-11-30 09:19 | PDOC.PN ---
- Subjective Encounter Start Date: 11/30/17 (f/u stroke) Encounter Start Time: 09:17 Subjective: BP's increased to the 150's yesterday and cardene was restarted -: at low dose. no overnight events - Objective Vital Signs & Weight: Vital Signs (12 hours) Temp 11/30/17 07:00 97.4 F L 11/30/17 04:00 98.9 F 11/30/17 00:00 99.1 F Weight Admit Weight 144 lb Weight 144 lb 6.444 oz Most Recent Monitor Data Heart Rate from ECG 97 NIBP 142/69 NIBP BP-Mean 119 Respiration from ECG 22 SpO2 99 I&O: 11/29/17 11/30/17 12/01/17 06:59 06:59 06:59 Intake Total 170 1808 Output Total 735 1160 205 Balance -565 648 -205 Result Diagrams: 11/30/17 03:55 11/30/17 03:54 EKG Reviewed by me: Yes (a fib in 90-110's) Phys Exam - Physical Examination Constitutional: NAD eyes don't move past midline to left. Left sided neglect Respiratory: no wheezing, no rales, no rhonchi Cardiovascular: no significant murmur, irregular Gastrointestinal: soft, non-tender, no distention, positive bowel sounds Musculoskeletal: no edema moves right arm/leg easily, slight movement of left leg no movement of left arm. Left facial droop Psychiatric: normal affect Deviation from normal: answers questions appropriately, speech slightly garbled , follows commands Skin: no rash Dx/Plan (1) Acute right MCA stroke Code(s): I63.511 - CEREB INFRC D/T UNSP OCCLS OR STENOS OF RIGHT MID CEREB ART Status: Acute (2) Chronic kidney disease Code(s): N18.9 - CHRONIC KIDNEY DISEASE, UNSPECIFIED Status: Chronic Qualifiers: Chronic kidney disease stage: stage 3 (moderate) Qualified Code(s): N18.3 - Chronic kidney disease, stage 3 (moderate) (3) Atrial fibrillation with controlled ventricular rate Code(s): I48.91 - UNSPECIFIED ATRIAL FIBRILLATION Status: Chronic (4) Hypertension Code(s): I10 - ESSENTIAL (PRIMARY) HYPERTENSION Status: Chronic Qualifiers: Hypertension type: essential hypertension Qualified Code(s): I10 - Essential (primary) hypertension - Plan * Stroke - Neurology evaluation yesterday. Discussed with Dr Gamino today - bp' s can be around 150-160's as we are over 24 hours from stroke. no aspirin due to the hemorrhagic conversion. * * a fib - rate controlled. D/c cardene gtt. If bp's are greater than 160, will use prn metoprolol to control heart rate and bp - start low dose and adjust , avoid bp's less than 140. * * ckd stable * * Transfer to stroke if clearned by Neurology and NS * * continue IVF, reassess speech/swallow * pt/ot/stroke team * * dvt prophy - scd's for now * gi prophy - IV famotidine. * code status full * * discussed plan of care with RN, patient and family, no questions or further needs at end of eval. .
--- NOTE | 2017-11-30 12:03 | PRG ---
DATE OF SERVICE: 11/30/2017 This is 15-minute subsequent visit note in which 15 minutes were spent in reviewing the imaging recor d, evaluation and examination of the patient, and formulation of plan. Greater than 50% of the time was spent in counseling on Peace Mantilla. Ms. Mantilla is demonstrating improvement. She is more alert. She has a right gaze preference and o bviously dense left hemiplegia, but she is ready to start taking in water and has been cleared for so me pureed foods by Speech Therapy. We are going to sign off at this point, but I will recommend reha bilitation obviously or physiatry and we will follow up with her in 1 month with a repeat head CT in our clinic. DIAGNOSIS: Right-sided middle cerebral artery stroke with hemorrhagic.
[2017-11-30] MEDS: Metoprolol Tartrate 5 MG/5 ML VIAL IVP PRN ×2 (12:36→19:49)
--- NOTE | 2017-11-30 13:30 | PRG ---
DATE OF SERVICE: 11/30/2017 INTERVAL HISTORY: The patient is more awake. She has been talking, but cannot move the left side per nursing staff and her blood pressures have been in the 160s to 170s at times. I did receive a call from Dr. Sanchez about her blood pressure parameters as well as aspirin. The patient seems to be much more stable today. LABORATORY DATA: Review of recent laboratory reports, hemoglobin 11.7, hematocrit 35, platelets 239,000, white count 9.5. PT 147, INR 1.1, PTT 32.2. Chemistry, sodium 144, potassium 3.7, chloride 112, bicarbonate 20, BUN 30, creatinine 0.97. Triglycerides 89, cholesterol 219, LDL 144, HDL 57 and heart disease risk ratio is 3.8 and urinalysis is negative for any nitrite or ketones , but elevated protein and blood. PHYSICAL EXAMINATION: VITAL SIGNS: Blood pressure 164/97, temperature is 97.8, heart rate 93. NEUROLOGIC: She is alert, awake and more responsive and talkative. CHEST: Clear vesicular breathing. NEUROLOGICAL: Higher intellectual function. She is oriented to place, person and appropriate in conversation. Cranial nerves, left facial droop. Motor, left upper and lower extremity strength is 0/5 and right upper and lower extremity strength is 5/5. IMPRESSION: The patient with a right middle cerebral artery infarct and hemorrhagic conversion of the infarct. Her CT from today did not show much in the way of blood products, but there is definitely 2 mm subfalcine herniation to the left along with right middle cerebral artery distribution infarct and MRI did show intracerebral bleed within the area of the infarct with hemorrhagic conversion. Her clinical exam shows significant weakness in the left upper and lower extremity as expected. Diagnosis is consistent with right middle cerebral artery infarct with hemorrhagic conversion. RECOMMENDATIONS: 1. Please keep blood pressures around 160s. 2. No aspirin for now due to hemorrhagic conversion of the large cerebrovascular accident. 3. Complete her stroke workup and she can move to stroke floor tomorrow as long as she remains stable. I will continue to follow her through this hospital stay over the weekend. KATIA
[2017-11-30] MEDS: Lidocaine 5% Patch TD SCH ×2 (17:09→21:40)
[2017-11-30] MEDS: Famotidine/PF 20 mg/2ml Vial SLOW IVP SCH (20:04)
[2017-11-30] MEDS ORDERED: Amlodipine 10 MG TAB PO SCH (22:15)
--- NOTE | 2017-11-30 22:38 | PRG ---
DATE OF SERVICE: 11/30/2017 SUBJECTIVE: Ms. Mantilla is actually quite feisty today. I had a long pleasant conversation with her. She is in no distress. She is still hemiparetic and ig noring her left side. OBJECTIVE: VITAL SIGNS: Her heart rates in the 90s to low 100s, blood pressure 157/87, respiratory rates in the 20s, and oximetry is 99%. LUNGS: Clear. HEART: Regular rhythm. S1 and S2 are normal. ABDOMEN: Soft and nontender. EXTREMITIES: Without clubbing, cyanosis, or edema. LABORATORY DATA: White count 9.5, hemoglobin 11.7, platelets 239. Sodium 144, potassium 3.7, chloride 112, bicarbonate 20, BUN 30, and creatinine 0.9. 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 PLAN: Continue in the ICU with blood pressure control. Speech evaluation is not felt that surgical intervention will be needed. If she remains stable, she will probably move to the stroke unit in the morning.
[2017-12-01] MEDS: Metoprolol Tartrate 5 MG/5 ML VIAL IVP PRN (02:14)
[2017-12-01 04:06] LABS: #Basophils 0.1 thou/uL (0.0-0.2); #Eosinphils 0.2 thou/uL (0.0-0.7); #Lymphocytes 1.6 thou/uL (1.20-3.40); #Monocytes 1.1 thou/uL (0.11-0.59); #Neutrophils 8.3 thou/uL (1.40-6.50); %Basophils 0.5 % (0.0-1.0); %Eosinophils 2.1 % (0.0-10.0); %Lymphocytes 14.1 % (21.0-51.0); %Monocytes 9.6 % (0.0-10.0); %Neutrophils 73.7 % (42.0-75.0); Hemoglobin 12.5 g/dL (12.0-16.0); Mean Corpuscular HGB CONC 32.8 g/dL (32.0-36.0); Mean Corpuscular Hemoglobin 31.5 pg (27.0-31.0); Mean Platelet Volume 6.9 fL (7.4-10.4); Platelet Count 263 thou/uL (130-400); RBC Distribution Width 18.2 % (11.5-14.5); Red Blood Cell (RBC) Count 3.96 mill/uL (4.20-5.40); White Blood Cell (WBC) Count 11.2 thou/uL (4.8-10.8)
[2017-12-01 04:35] LABS: Anion Gap 16 mmol/L (10-20); BUN (Urea Nitrogen) 23 mg/dL (9.8-20.1); Calc. Creatinine Clearance 52 mL/min (70-130); Calcium 8.9 mg/dL (7.8-10.44); Carbon Dioxide 18 mmol/L (23-31); Chloride 109 mmol/L (98-107); Estimated GFR-MDRD 61; Glucose 93 mg/dL (83-110); Potassium 3.7 mmol/L (3.5-5.1); Sodium 139 mmol/L (136-145)
[2017-12-01] MEDS ORDERED: Labetalol HCl 100 MG/20 ML VIAL SLOW IVP PRN (08:07)
--- NOTE | 2017-12-01 08:10 | PDOC.PN ---
- Subjective Encounter Start Date: 12/01/17 (f/u stroke) Encounter Start Time: 08:08 Subjective: Overnight bp's elevated and pt received a dose of amlodipine. She denies -: any complaints today, thinks she is at home -: By report, pt treated for shingles over past few weeks - has blistering - Objective Vital Signs & Weight: Vital Signs (12 hours) Temp Pulse BP 12/01/17 07:00 97.6 F 12/01/17 04:00 99.0 F 12/01/17 00:00 98.5 F 11/30/17 22:09 89 172/95 H Weight Admit Weight 144 lb Weight 144 lb 6.444 oz Most Recent Monitor Data Heart Rate from ECG 96 NIBP 154/89 NIBP BP-Mean 111 Respiration from ECG 37 SpO2 100 I&O: 11/30/17 12/01/17 12/02/17 06:59 06:59 06:59 Intake Total 1808 3920 200 Output Total 1160 1505 50 Balance 648 2415 150 Result Diagrams: 12/01/17 03:20 12/01/17 03:20 EKG Reviewed by me: Yes (tele - a fib rate 90-110's) Phys Exam - Physical Examination Constitutional: NAD unchanged - eyes midline, unable to gaze to left side Respiratory: no wheezing, no rales, no rhonchi Cardiovascular: no significant murmur, irregular Gastrointestinal: soft, non-tender, positive bowel sounds Musculoskeletal: no edema, pulses present No movement of left arm, rare movement of left foot normal movement of right arm/leg Deviation from normal: more tired appearing today. Oriented to person, situation but not place Deviation from normal: areas of denuded skin on back and left buttock - not new. -: No bullae/pustules or signs of active infection Dx/Plan (1) Acute right MCA stroke Code(s): I63.511 - CEREB INFRC D/T UNSP OCCLS OR STENOS OF RIGHT MID CEREB ART Status: Acute (2) Chronic kidney disease Code(s): N18.9 - CHRONIC KIDNEY DISEASE, UNSPECIFIED Status: Chronic Qualifiers: Chronic kidney disease stage: stage 3 (moderate) Qualified Code(s): N18.3 - Chronic kidney disease, stage 3 (moderate) (3) Atrial fibrillation with controlled ventricular rate Code(s): I48.91 - UNSPECIFIED ATRIAL FIBRILLATION Status: Chronic (4) Hypertension Code(s): I10 - ESSENTIAL (PRIMARY) HYPERTENSION Status: Chronic Qualifiers: Hypertension type: essential hypertension Qualified Code(s): I10 - Essential (primary) hypertension (5) Shingles Code(s): B02.9 - ZOSTER WITHOUT COMPLICATIONS Status: Acute (6) Hypothyroid Code(s): E03.9 - HYPOTHYROIDISM, UNSPECIFIED Status: Acute (7) GERD (gastroesophageal reflux disease) Code(s): K21.9 - GASTRO-ESOPHAGEAL REFLUX DISEASE WITHOUT ESOPHAGITIS Status: Acute - Plan * Stroke - appreciate Neuro consult = goal bp's around 160 systolic. * Will d/c amlopidine, start oral metoprolol for rate control and titrate. Use prn labetalol for bp greater than 180 * Hold on aspirin due hemorrhagic conversion * stroke rehab protocol * Appreciate NS consult - signed off, no surgical intervention, needs f/u CT in 1 month * Appreciate Pulm consult/overall management * * a fib - rate controlled. Resume metoprolol oral and titrate for bp and rate conrol. No anticoagulation due to hemorrhagic conversion * Hypothyroid - resume synthroid * resume breathing meds - no signs of decompensation * shingles - subacute - wound care consult. No active lesions or indication for contact precautions by my exam * * gerd - resume home meds * * ckd stable * * Transfer to stroke as stable overnight * d/c nye cath, d/c IVF * * dvt prophy - scd's * gi prophy - on home meds * code status full * * discussed plan of care with RN, patient, no questions or further needs at end of eval
[2017-12-01] MEDS: Metoprolol Tartrate 25 MG TAB PO SCH ×2 (08:56→21:22)
[2017-12-01] MEDS: Levothyroxine Sodium 75 MCG TAB PO SCH (08:57)
[2017-12-01] MEDS: Famotidine 20 MG TAB PO SCH ×2 (08:57→21:22)
[2017-12-01] MEDS: Pantoprazole 40 MG GRANULES PACKET PO SCH (08:57)
[2017-12-01] MEDS ORDERED: Amlodipine 10 MG TAB PO SCH (09:00)
[2017-12-01] MEDS: Lidocaine Patch Removal 1 EACH TOP SCH (09:13)
--- NOTE | 2017-12-01 13:13 | PRG ---
DATE OF SERVICE: 12/01/2017 CHIEF COMPLAINT: Acute stroke. INTERVAL HISTORY: The patient is still the same compared to yesterday and no significant change in h er neurological status. LABORATORY RESULTS: White count 11.2, hemoglobin 12.5, hematocrit 38.1, platelets 263. Chemistry: Sodium 139, potassium 3.7, chloride 109, bicarbonate 18, BUN 23, creatinine 0.89, glucose 93 and her triglycerides are 89. Cholesterol 219, LDL 144, HDL 57. PHYSICAL EXAMINATION: VITAL SIGNS: Blood pressure is 145/82, temperature is 97.8, heart rate 86, respiratory rate 24. GENERAL APPEARANCE: Appears comfortable in bed. CHEST: Clear vesicular breathing. CARDIOVASCULAR: S1, S2 heard. ABDOMEN: Soft. NEUROLOGIC: Higher intellectual function: She does wake up and talk and follows commands. She is o riented to time, place and person. Cranial Nerves: She has left facial asymmetry with left facial d [place]. Motor examination: She has 5/5 strength in the right upper and lower extremities, 3/5 strengt h in left upper extremity. She did have slight spontaneous movement of her toes on the left side, on ly once during my exam, but unable to move her left leg. IMPRESSION: The patient is an 82-year-old lady with large right middle cerebral artery infarct with intracerebral bleed with hemorrhagic conversion. Her motor examination remains the same. She has de nse left hemiparesis as a result of this infarct. RECOMMENDATIONS: 1. Continue supportive care. [facility] and her Dopplers were also negative, but no stenosis, so this is likely cardioembolic event as discussed earlier. 2. Continue to hold aspirin for now and repeat MRI in a couple of days to see if the hemorrhage has improved.
--- NOTE | 2017-12-01 18:52 | PRG ---
DATE OF SERVICE: 12/01/2017 SUBJECTIVE: Peace Mantilla still has a wonderful attitude, but unfortunately has made no progress f rom a neurological standpoint. She is still densely hemiplegic. She is still joking ____ in the y[place] m. PHYSICAL EXAMINATION: VITAL SIGNS: Heart rate 66, blood pressure 113/65, respiratory rate is 20, oximetry is 100%. LUNGS: Clear. HEART: Regular rhythm. ABDOMEN: Soft. EXTREMITIES: Without asymmetry. LABORATORY DATA: Sodium 142, potassium 3.5, chloride 110, bicarbonate 22, BUN 10, creatinine 0.78, g lucose 110. White count 13.9, hemoglobin 13.6 and platelets 110. IMPRESSION: Status post thrombotic cerebrovascular accident with hemorrhagic conversion. PLAN: Continue supportive care. She is probably stable to go to the ____ and consideration needs to be given towards shelter.
[2017-12-01] MEDS: Mometasone/Formoterol 120 PUFF INHALER INH SCH (19:00)
[2017-12-01] MEDS: Lidocaine 5% Patch TD SCH (21:24)
[2017-12-02 04:22] LABS: #Basophils 0.1 thou/uL (0.0-0.2); #Eosinphils 0.3 thou/uL (0.0-0.7); #Lymphocytes 1.4 thou/uL (1.20-3.40); #Monocytes 0.8 thou/uL (0.11-0.59); #Neutrophils 6.5 thou/uL (1.40-6.50); %Basophils 0.6 % (0.0-1.0); %Lymphocytes 15.5 % (21.0-51.0); %Monocytes 8.6 % (0.0-10.0); %Neutrophils 72.3 % (42.0-75.0); Hemoglobin 12.1 g/dL (12.0-16.0); Mean Corpuscular HGB CONC 33.4 g/dL (32.0-36.0); Mean Corpuscular Hemoglobin 31.7 pg (27.0-31.0); Mean Corpuscular Volume 94.7 fL (78.0-98.0); Platelet Count 247 thou/uL (130-400); RBC Distribution Width 17.6 % (11.5-14.5); Red Blood Cell (RBC) Count 3.84 mill/uL (4.20-5.40)
[2017-12-02 04:43] LABS: Anion Gap 15 mmol/L (10-20); BUN (Urea Nitrogen) 19 mg/dL (9.8-20.1); Calc. Creatinine Clearance 55 mL/min (70-130); Calcium 8.9 mg/dL (7.8-10.44); Carbon Dioxide 20 mmol/L (23-31); Chloride 106 mmol/L (98-107); Estimated GFR-MDRD 65; Glucose 96 mg/dL (83-110); Potassium 3.5 mmol/L (3.5-5.1); Sodium 137 mmol/L (136-145)
[2017-12-02] MEDS: Mometasone/Formoterol 120 PUFF INHALER INH SCH ×2 (07:51→18:20)
[2017-12-02] MEDS: Levothyroxine Sodium 75 MCG TAB PO SCH (09:20)
[2017-12-02] MEDS: Metoprolol Tartrate 25 MG TAB PO SCH ×2 (09:21→21:57)
[2017-12-02] MEDS: Famotidine 20 MG TAB PO SCH ×2 (09:22→21:57)
[2017-12-02] MEDS: Pantoprazole 40 MG GRANULES PACKET PO SCH (09:22)
[2017-12-02] MEDS: Lidocaine Patch Removal 1 EACH TOP SCH (09:28)
--- NOTE | 2017-12-02 13:25 | PRG ---
DATE OF SERVICE: 12/02/2017 SUBJECTIVE: Ms. Mantilla is still quickly conversant. She is still hemiplegic. PHYSICAL EXAMINATION: VITAL SIGNS: Heart rates in the 70s, blood pressure 130/60, respiratory rate 25, oximetry is 99%. LUNGS: Clear. HEART: Regular rhythm. ABDOMEN: Soft. EXTREMITIES: Without clubbing, cyanosis, or edema. LABORATORY DATA: White count 9, hemoglobin 12.1, platelets 247. Sodium 137, potassium 3.5, chloride 106, bicarbonate 20, BUN 19 and creatinine 0.84. IMPRESSION: Thrombotic cerebrovascular with hemorrhagic conversion, clinically stable. Her physician, Dr. Chakraborty says she is in outpatient DO NOT RESUSCITATE status. There are no resusci tation type issues at hand, but this will be something that will have to be kept in mind and this steve l have to be confirmed as she progresses with her care.
--- NOTE | 2017-12-02 13:52 | PDOC.PN ---
- Subjective Encounter Start Date: 12/02/17 Encounter Start Time: 14:30 -: old records requested/rev Pt seen and examined, chart reviewed in its entirety, this is my first visit with this patient for this encounter All systems reviewed and neg for all systems except as above - Objective MAR Reviewed: Yes Vital Signs & Weight: Vital Signs (12 hours) Temp Pulse Pulse Pulse Resp BP BP 12/02/17 11:15 77 94 135/78 124/87 12/02/17 11:00 97.9 F 12/02/17 07:24 98.3 F 76 22 H 12/02/17 07:00 98.3 F 12/02/17 04:00 98.1 F Pulse Ox 12/02/17 11:15 12/02/17 11:00 12/02/17 07:24 100 12/02/17 07:00 12/02/17 04:00 Weight Admit Weight 144 lb Weight 144 lb 6.444 oz Most Recent Monitor Data Heart Rate from ECG 74 NIBP 130/68 NIBP BP-Mean 85 Respiration from ECG 25 SpO2 99 I&O: 12/01/17 12/02/17 12/03/17 06:59 06:59 06:59 Intake Total 3920 65775 600 Output Total 1505 1675 100 Balance 2415 47375 500 Result Diagrams: 12/02/17 03:46 12/02/17 03:46 Radiology Reviewed by me: Yes EKG Reviewed by me: Yes Phys Exam - Physical Examination Constitutional: NAD HEENT: PERRLA, moist MMs, sclera anicteric, oral pharynx no lesions right ptosis Neck: no nodes, no JVD, supple, full ROM Respiratory: no wheezing, no rales, no rhonchi, clear to auscultation bilateral Cardiovascular: RRR, no significant murmur, no rub Gastrointestinal: soft, non-tender, no distention, positive bowel sounds Musculoskeletal: pulses present, edema present Neurological: normal sensation dense LUE, LLE hemiplegia, some LUE motion at shoulder Lymphatic: no nodes Psychiatric: normal affect, A&O x 3 Skin: no rash, normal turgor, cap refill <2 seconds Dx/Plan (1) Acute right MCA stroke Code(s): I63.511 - CEREB INFRC D/T UNSP OCCLS OR STENOS OF RIGHT MID CEREB ART Status: Acute (2) GERD (gastroesophageal reflux disease) Code(s): K21.9 - GASTRO-ESOPHAGEAL REFLUX DISEASE WITHOUT ESOPHAGITIS Status: Chronic Qualifiers: Esophagitis presence: without esophagitis Qualified Code(s): K21.9 - Gastro -esophageal reflux disease without esophagitis (3) Hypothyroid Code(s): E03.9 - HYPOTHYROIDISM, UNSPECIFIED Status: Chronic (4) Hypertension Code(s): I10 - ESSENTIAL (PRIMARY) HYPERTENSION Status: Chronic Qualifiers: Hypertension type: essential hypertension Qualified Code(s): I10 - Essential (primary) hypertension (5) Atrial fibrillation with controlled ventricular rate Code(s): I48.91 - UNSPECIFIED ATRIAL FIBRILLATION Status: Chronic (6) CKD (chronic kidney disease) stage 5, GFR less than 15 ml/min Code(s): N18.5 - CHRONIC KIDNEY DISEASE, STAGE 5 Status: Chronic - Plan cont current plan of care, PT/OT, psychiatric social worker, DVT proph w/SCDs * .
[2017-12-02] MEDS: Lidocaine 5% Patch TD SCH (21:58)
[2017-12-03 04:06] LABS: #Basophils 0.1 thou/uL (0.0-0.2); #Eosinphils 0.2 thou/uL (0.0-0.7); #Lymphocytes 1.4 thou/uL (1.20-3.40); #Monocytes 0.8 thou/uL (0.11-0.59); #Neutrophils 7.4 thou/uL (1.40-6.50); %Basophils 0.5 % (0.0-1.0); %Eosinophils 2.5 % (0.0-10.0); %Lymphocytes 14.3 % (21.0-51.0); %Monocytes 8.3 % (0.0-10.0); %Neutrophils 74.4 % (42.0-75.0); Hemoglobin 12.7 g/dL (12.0-16.0); Mean Corpuscular HGB CONC 33.3 g/dL (32.0-36.0); Mean Corpuscular Hemoglobin 31.5 pg (27.0-31.0); Mean Corpuscular Volume 94.6 fL (78.0-98.0); Mean Platelet Volume 6.8 fL (7.4-10.4); Platelet Count 240 thou/uL (130-400); RBC Distribution Width 17.3 % (11.5-14.5); Red Blood Cell (RBC) Count 4.02 mill/uL (4.20-5.40); White Blood Cell (WBC) Count 9.9 thou/uL (4.8-10.8)
[2017-12-03 04:23] LABS: Anion Gap 15 mmol/L (10-20); BUN (Urea Nitrogen) 20 mg/dL (9.8-20.1); Calc. Creatinine Clearance 51 mL/min (70-130); Calcium 9.1 mg/dL (7.8-10.44); Carbon Dioxide 23 mmol/L (23-31); Chloride 103 mmol/L (98-107); Estimated GFR-MDRD 59; Glucose 94 mg/dL (83-110); Potassium 3.1 mmol/L (3.5-5.1); Sodium 138 mmol/L (136-145)
[2017-12-03] MEDS: Mometasone/Formoterol 120 PUFF INHALER INH SCH ×2 (07:22→19:05)
[2017-12-03] MEDS: Pantoprazole 40 MG GRANULES PACKET PO SCH (08:30)
[2017-12-03] MEDS: Levothyroxine Sodium 75 MCG TAB PO SCH (08:30)
[2017-12-03] MEDS: Metoprolol Tartrate 25 MG TAB PO SCH ×2 (08:30→21:17)
[2017-12-03] MEDS: Famotidine 20 MG TAB PO SCH ×2 (08:30→21:15)
[2017-12-03] MEDS: Lidocaine Patch Removal 1 EACH TOP SCH (11:49)
--- NOTE | 2017-12-03 13:18 | PDOC.PN ---
- Subjective Encounter Start Date: 12/03/17 Encounter Start Time: 10:55 pt trasnferred ot stroke unit. No appreciable changes. no F/C, no N/V/d/C, no CP or SOB All systems reviewed and neg for all systems except as per hPI - Objective MAR Reviewed: Yes Vital Signs & Weight: Vital Signs (12 hours) Temp Pulse Resp BP Pulse Ox 12/03/17 11:35 98.5 F 68 18 165/91 H 12/03/17 09:44 97.8 F 84 16 143/87 H 94 L 12/03/17 08:00 97.8 F 88 21 H 97 12/03/17 07:00 97.4 F L 12/03/17 04:00 97.8 F Weight Admit Weight 144 lb Weight 144 lb 6.444 oz Most Recent Monitor Data Heart Rate from ECG 70 NIBP 137/87 NIBP BP-Mean 108 Respiration from ECG 18 SpO2 97 I&O: 12/02/17 12/03/17 12/04/17 06:59 06:59 06:59 Intake Total 01630 1190 40 Output Total 1675 226 0 Balance 54887 964 40 Result Diagrams: 12/03/17 03:33 12/03/17 03:33 Phys Exam - Physical Examination Constitutional: NAD HEENT: PERRLA, moist MMs, sclera anicteric, oral pharynx no lesions Neck: no nodes, no JVD, supple, full ROM Respiratory: no wheezing, no rales, no rhonchi, clear to auscultation bilateral Cardiovascular: no significant murmur, no rub, irregular Gastrointestinal: soft, non-tender, no distention, positive bowel sounds Musculoskeletal: pulses present, edema present dense left hemiplegia Lymphatic: no nodes Psychiatric: normal affect, A&O x 3 Skin: no rash, normal turgor, cap refill <2 seconds Dx/Plan (1) Acute right MCA stroke Code(s): I63.511 - CEREB INFRC D/T UNSP OCCLS OR STENOS OF RIGHT MID CEREB ART Status: Acute Comment: large stroke with small hemorrhagic conversion. off xarelto. to rehab when arranged ACT on hold (2) GERD (gastroesophageal reflux disease) Code(s): K21.9 - GASTRO-ESOPHAGEAL REFLUX DISEASE WITHOUT ESOPHAGITIS Status: Chronic Qualifiers: Esophagitis presence: without esophagitis Qualified Code(s): K21.9 - Gastro -esophageal reflux disease without esophagitis (3) Hypothyroid Code(s): E03.9 - HYPOTHYROIDISM, UNSPECIFIED Status: Chronic (4) Hypertension Code(s): I10 - ESSENTIAL (PRIMARY) HYPERTENSION Status: Chronic Qualifiers: Hypertension type: essential hypertension Qualified Code(s): I10 - Essential (primary) hypertension (5) Atrial fibrillation with controlled ventricular rate Code(s): I48.91 - UNSPECIFIED ATRIAL FIBRILLATION Status: Chronic (6) CKD (chronic kidney disease) stage 5, GFR less than 15 ml/min Code(s): N18.5 - CHRONIC KIDNEY DISEASE, STAGE 5 Status: Chronic - Plan * .
--- NOTE | 2017-12-03 13:33 | PRG ---
DATE OF SERVICE: 12/03/2017 SUBJECTIVE: This morning, awake, responsive. Slurred speech. OBJECTIVE: VITAL SIGNS: Blood pressure 139/92, pulse 88, respiration rate 18, sats are 98%. CHEST: Revealed decreased breath sounds without any wheezing. CARDIAC: Normal S1, S2. No gallops. ABDOMEN: Soft, no masses. LABORATORY DATA: Electrolytes are normal. White count 9000. IMPRESSION: 1. Acute right middle cerebral artery infarct with hemorrhage. 2. Chronic cough. 3. Previous urinary tract infection. 4. Chronic atrial fibrillation. PLAN: Pulmonary win, continue comfort care, supportive care. She is a DNR as per her previous wishes. talked to the family and make a DNR. In the meantime, continue supportive care and PT.
[2017-12-03] MEDS: Acetaminophen 650 MG Suppository PR PRN (14:26)
[2017-12-03] MEDS: Lidocaine 5% Patch TD SCH (21:19)
[2017-12-04] MEDS ORDERED: Potassium Chloride 20 MEQ TAB ONE (02:47)
[2017-12-04 05:53] LABS: #Eosinphils 0.2 thou/uL (0.0-0.7); #Lymphocytes 1.4 thou/uL (1.20-3.40); #Monocytes 0.8 thou/uL (0.11-0.59); #Neutrophils 6.3 thou/uL (1.40-6.50); %Basophils 0.4 % (0.0-1.0); %Eosinophils 2.5 % (0.0-10.0); %Lymphocytes 15.9 % (21.0-51.0); %Monocytes 9.1 % (0.0-10.0); %Neutrophils 72.2 % (42.0-75.0); Hemoglobin 11.8 g/dL (12.0-16.0); Mean Corpuscular HGB CONC 33.4 g/dL (32.0-36.0); Mean Corpuscular Hemoglobin 31.3 pg (27.0-31.0); Mean Corpuscular Volume 93.8 fL (78.0-98.0); Mean Platelet Volume 7.3 fL (7.4-10.4); Platelet Count 191 thou/uL (130-400); RBC Distribution Width 17.2 % (11.5-14.5); Red Blood Cell (RBC) Count 3.77 mill/uL (4.20-5.40); White Blood Cell (WBC) Count 8.7 thou/uL (4.8-10.8)
[2017-12-04 06:07] LABS: Anion Gap 15 mmol/L (10-20); BUN (Urea Nitrogen) 29 mg/dL (9.8-20.1); Calc. Creatinine Clearance 46 mL/min (70-130); Calcium 8.9 mg/dL (7.8-10.44); Carbon Dioxide 21 mmol/L (23-31); Chloride 104 mmol/L (98-107); Estimated GFR-MDRD 53; Glucose 99 mg/dL (83-110); Potassium 3.2 mmol/L (3.5-5.1); Sodium 137 mmol/L (136-145)
[2017-12-04] MEDS: Mometasone/Formoterol 120 PUFF INHALER INH SCH (08:15)
--- NOTE | 2017-12-04 08:36 | PRG ---
DATE OF SERVICE: 12/04/2017 OBJECTIVE: VITAL SIGNS: Sats are 93 on room air, respiratory rate 18, temperature 97, blood pressure 143/85. GENERAL: She appears to be in no acute distress. CHEST: Decreased breath sounds, no wheezing. CARDIAC: Normal S1 and S2, no gallops. ABDOMEN: Soft, no masses. LABORATORY DATA: Labs are unremarkable. IMPRESSION: Acute right middle cerebral artery with left hemiparesis, atrial fibrillation, and renal failure much improved with chronic cough. PLAN: The patient is well known to me. She is always a DNR. When the son arrives, I will discuss c ode status with the patient. Otherwise, supportive care, aspirin, PT.
[2017-12-04] MEDS: Potassium Chloride 20 MEQ TAB PO SCH ×2 (09:17→12:07)
[2017-12-04] MEDS: Famotidine 20 MG TAB PO SCH (09:17)
[2017-12-04] MEDS: Metoprolol Tartrate 25 MG TAB PO SCH (09:18)
[2017-12-04] MEDS: Levothyroxine Sodium 75 MCG TAB PO SCH (09:18)
[2017-12-04] MEDS: Pantoprazole 40 MG GRANULES PACKET PO SCH (09:18)
[2017-12-04] MEDS: Lidocaine Patch Removal 1 EACH TOP SCH (11:12)
--- NOTE | 2017-12-04 11:15 | DIS ---
DATE OF ADMISSION: 11/28/2017 DATE OF DISCHARGE: 12/04/2017 PRIMARY CARE PHYSICIAN: Dr. Renetta Chakraborty. DISCHARGE DIAGNOSES: 1. 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 2. Hemorrhagic conversion with intracerebral hemorrhage. 3. Left-sided hemiplegia and neglect. 4. Chronic atrial fibrillation. 5. Hypertension, essential. 6. Chronic kidney disease, stage 3. 7. Hypothyroidism. 8. Gastroesophageal reflux disease. CONSULTATIONS: 1. Neurology, Dr. Edwina Gamino, on 11/29/2017. 2. Dr. Stevenson Pena, Pulmonary Critical Care, 11/29/2017, followed by Dr. Salvador Rodriguez. 3. 11/29/2017, Dr. Anatoly Terry with Neurosurgery. PROCEDURES: None. HISTORY AND PHYSICAL: Ms. Mantilla is a pleasant 82-year-old female, who presented to the emergency department on the day of admission for change in mental status and left-sided weakness. The patient had an unknown onset of mental status and left-sided weakness. She was brought to the emergency depa rtment for evaluation. There, she was found to be in atrial fibrillation with RVR, rate 106, and a b rain CT showed large right MCA-distribution stroke and a possible tiny focus of hemorrhage. There is a mild midline shift to the left. We were subsequently called for admit. HOSPITAL COURSE: The patient was seen and examined by Dr. Rajan, the patient was placed in inpati ent status, blood pressure control was obtained with some permissive hypertension. She was stopped o ff of her Xarelto and Neurology, Neurosurgery, and Pulmonary Critical Care were consulted. From 11/28/2017 to 11/29/2017, the patient remained stable. [facility] On 11/30/2017, the patient was taken over by Dr. Connie Sanchez, from 11/30/2017 to 12/01/2017. The pat ient remained in the ICU, awaiting a telemetry bed, but otherwise remained stable. She was evaluated by speech therapy and was cleared for a modified diet and was being followed by PT and OT. On 12/03/2017, she was finally transferred to the floor. She was accepted at inpatient rehab for oma abilitation later in the day and today was stable for discharge for rehabilitation. PHYSICAL EXAMINATION: The patient was seen and examined on the day of discharge. Discharge plan and disposition discussed with the patient [id number] at the bedside. DISCHARGE MEDICATIONS: New medications: 1. Metoprolol tartrate 25 mg p.o. b.i.d. 2. Lidocaine 5% patch placed 10:00 p.m. every day, removed at 10:00 a.m. 3. Lipitor 20 mg p.o. at bedtime. Medicines to continue: 1. Famotidine 10 mg p.o. b.i.d. 2. DuoNeb 3 mL q.4 hours p.r.n. shortness of breath or wheezing. 3. Levothyroxine 75 mcg daily. 4. Dulera 200/5 two puffs inhaled b.i.d. 5. Protonix 40 mg daily. 6. Tylenol as needed. 7. Albuterol sulfate/Proventil HFA 2 puffs inhaled q.4 hours p.r.n. shortness of breath or wheezing. 8. Amlodipine 10 mg daily. 9. Calcium carbonate 1000 mg p.o. q.4 hours p.r.n. heartburn or indigestion. 10. Zyrtec 10 mg daily. 11. Fluoxetine 10 mg daily. 12. Guaifenesin ER 600 mg p.o. b.i.d. 13. Levaquin 250 mg p.o. every other day for UTI prophylaxis. 14. Ativan 1-2 mg p.o. at bedtime p.r.n. anxiety, sleep disturbance, or spasm. 15. Rosenhayn 3 fatty acid fish oil 2 caps daily. 16. Florastor 250 mg p.o. b.i.d. DISCHARGE CONDITION: Stable. DISPOSITION: Being transferred to inpatient rehabilitation via nonemergent EMS transport. DISCHARGE ACTIVITY: As tolerated. PT, OT, and ST consults have been placed. DISCHARGE DIET: Heart healthy diet ordered.
[2017-12-04 12:01] VITALS: TEMP 97.5
[2017-12-04 12:06] VITALS: BP 143/87
[2017-12-04] MEDS ORDERED: Atorvastatin Calcium 20 MG TAB PO SCH (21:00)
== END 2017-12-04 13:09 | DRG 64 ==
LOC: ERS 18:35 → CCU 22:05 → 2SE 12-03 09:51
PROVIDERS: ADMIT Hospitalist; ATTEND Hospitalist
DX: I63.511 Cerebral infarction due to unspecified occlusion or stenosis of right middle cerebral artery (principal); I61.8 Other nontraumatic intracerebral hemorrhage; G81.94 Hemiplegia, unspecified affecting left nondominant side; I12.0 Hypertensive chronic kidney disease with stage 5 chronic kidney disease or end stage renal disease; N18.5 Chronic kidney disease, stage 5; I48.2 Chronic atrial fibrillation; E03.9 Hypothyroidism, unspecified; K21.9 Gastro-esophageal reflux disease without esophagitis; R47.81 Slurred speech; B02.9 Zoster without complications
CPT/HCPCS: 36415; 36416; 51701; 70450; 70551; 71045; 72125; 80048; 80053; 80061; 81003; 81015; 82553; 84484; 85025; 85610; 85730; 90471; 90670; 93005; 93306; 93880; 94760; A4216; A4353; G0009; G8978-GP-CM; G8979-GP-CK; G8987-GO-CM; G8988-GO-CK; G8996-GN-CN; G8997-GN-CI; J7050; S0028

== ENCOUNTER 2018-02-10 09:22 | Emergency (ER) | payer MEDICARE, OTHER ==
[2018-02-10] MEDS ORDERED: Nitroglycerin 2% Ointment 1 INCH/1 GM Packet ONE (09:39)
--- NOTE | 2018-02-10 10:06 | RAD ---
PORTABLE CHEST: History: Chest pain Comparison: 11-28-17 FINDINGS: Heart size is enlarged. There are atherosclerotic changes of the aorta. The lungs are clear of infilt rates. There are no signs of failure. IMPRESSION: Mild cardiomegaly. POS: [facility]
[2018-02-10] MEDS ORDERED: ISOVUE-370 76%-LOCM 1 ML ONE (10:11)
[2018-02-10 10:27] LABS: #Eosinphils 0.1 thou/uL (0.0-0.7); #Lymphocytes 0.9 thou/uL (1.20-3.40); #Neutrophils 13.2 thou/uL (1.40-6.50); %Basophils 0.2 % (0.0-1.0); %Lymphocytes 5.7 % (21.0-51.0); %Monocytes 6.7 % (0.0-10.0); %Neutrophils 86.5 % (42.0-75.0); Hemoglobin 12.8 g/dL (12.0-16.0); Mean Corpuscular HGB CONC 32.4 g/dL (32.0-36.0); Mean Corpuscular Hemoglobin 30.1 pg (27.0-31.0); Mean Corpuscular Volume 92.8 fL (78.0-98.0); Platelet Count 282 thou/uL (130-400); RBC Distribution Width 14.1 % (11.5-14.5); Red Blood Cell (RBC) Count 4.27 mill/uL (4.20-5.40); White Blood Cell (WBC) Count 15.2 thou/uL (4.8-10.8)
[2018-02-10 10:45] LABS: ALT (SGPT) 13 U/L (8-55); AST (SGOT) 19 U/L (5-34); Albumin 3.8 g/dL (3.4-4.8); Alkaline Phosphatase 88 U/L (40-150); Anion Gap 14 mmol/L (10-20); BUN (Urea Nitrogen) 18 mg/dL (9.8-20.1); Bilirubin, Total 0.9 mg/dL (0.2-1.2); CK (CPK) 17 U/L (29-168); Calc. Creatinine Clearance 0 mL/min (70-130); Calcium 9.4 mg/dL (7.8-10.44); Carbon Dioxide 27 mmol/L (23-31); Chloride 97 mmol/L (98-107); Estimated GFR-MDRD 66; Globulin 3.1 g/dL (2.4-3.5); Glucose 102 mg/dL (83-110); Lipase 9 U/L (8-78); Potassium 3.7 mmol/L (3.5-5.1); Protein, Total 6.9 g/dL (6.0-8.3); Sodium 134 mmol/L (136-145)
[2018-02-10 10:50] LABS: CKMB 1.1 ng/mL (0-6.6); Troponin I 0.011 ng/mL (< 0.028)
[2018-02-10 11:08] LABS: Bilirubin Negative (Negative); Blood, Urine Negative (Negative); Clarity CLEAR (Clear); Glucose, Urine (Dipstick) Negative (Negative); Leukocyte Negative (Negative); Nitrite Negative (Negative); Protein, Urine (Dipstick) 30 mg/dL (Neg-Trace); Specific Gravity, Urine 1.017 (1.002-1.036)
[2018-02-10 11:11] LABS: Bacteria/HPF None Seen HPF (None Seen); Hyaline Casts/LPF 0-3 HYALINE CAST LPF (0-3 Hyaline); Pathc Cast-AUWi Flag 0.14 (0-2.49); RBC/HPF 0-3 HPF (0-3); Squamous Epithelial 0-3 HPF (0-3); WBC/HPF 0-3 HPF (0-3)
[2018-02-10] MEDS ORDERED: Furosemide 40 MG/4 ML VIAL ONE (11:34)
--- NOTE | 2018-02-10 11:42 | CT ---
CONTRAST ENHANCED CTA CHEST: History: Elevated D-Dimer. Left sided weakness. Comparison: 2D and 3D reconstruction images performed on an independent 3D workstation. FINDINGS: CTA images demonstrate calcification of the aorta. Extensive coronary artery calcifications seen. A tiny left sided pleural effusion is seen. Some left lower lobe atelectasis also present. Multilevel lower thoracic degenerative changes seen. No evidence of filling defects seen in the pulmonary arteries to suggest pulmonary emboli. IMPRESSION: 1. No evidence of pulmonary emboli seen. POS: [facility]
[2018-02-10 12:10] LABS: Troponin I 0.011 ng/mL (< 0.028)
--- NOTE | 2018-02-12 13:49 | EKG ---
Test Reason : Blood Pressure : / mmHG Vent. Rate : 097 BPM Atrial Rate : 082 BPM P-R Int : 000 ms QRS Dur : 090 ms QT Int : 410 ms P-R-T Axes : 000 -39 126 degrees QTc Int : 520 ms Atrial fibrillation with premature ventricular or aberrantly conducted complexes Left axis deviation Voltage criteria for left ventricular hypertrophy Prolonged QT Abnormal ECG Confirmed by ZAN PÉREZ, SONA ([id number]), scientific publications editor IBAN HUYNH ([id number]) on 02/12/2018 1:48:47 PM Referred By: Confirmed By:SONA ZULUAGA MD
== END 2018-02-10 13:05 | disposition home or self-care (01) ==
LOC: ERS 09:22
DX: I11.0 Hypertensive heart disease with heart failure (principal); I50.9 Heart failure, unspecified; M19.90 Unspecified osteoarthritis, unspecified site; Z86.73 Personal history of transient ischemic attack (TIA), and cerebral infarction without residual deficits; Z87.891 Personal history of nicotine dependence; Z79.899 Other long term (current) drug therapy
CPT/HCPCS: 36415; 51701; 71045; 71275; 80053; 81003; 81015; 82553; 83690; 83880; 84484; 85025; 85379; 93005; 96374; A4353; J1940

== ENCOUNTER 2018-02-22 22:03 | Inpatient (IN) | payer MEDICARE, OTHER ==
[2018-02-22] MEDS ORDERED: Succinylcholine Chloride 20 MG/ML 10 ml SYRINGE FS ONE (22:06)
[2018-02-22] MEDS ORDERED: Labetalol HCl 100 MG/20 ML VIAL ONE (22:12)
[2018-02-22] MEDS ORDERED: Propofol 500 MG/50 ML VIAL ONE (22:19)
--- NOTE | 2018-02-22 22:31 | RAD ---
CHEST ONE VIEW: 02/22/18 HISTORY: Altered mental status. COMPARISON: 02/17/18. FINDINGS: The cardiac silhouette is magnified and upper limits of normal in size. Pulmonary vasculature remains upper limits of normal. Mediastinum is midline with aortic calcification. Tip of an endotracheal cat heter overlies the thoracic inlet. Nasogastric tube descends to the abdomen. No evidence of pneumoth orax. IMPRESSION: Endotracheal catheter is in good radiographic position. POS: [facility]
[2018-02-22 22:38] LABS: #Basophils 0.1 thou/uL (0.0-0.2); #Eosinphils 0.2 thou/uL (0.0-0.7); #Neutrophils 11.3 thou/uL (1.40-6.50); %Basophils 0.6 % (0.0-1.0); %Eosinophils 1.5 % (0.0-10.0); %Lymphocytes 13.7 % (21.0-51.0); %Monocytes 6.6 % (0.0-10.0); %Neutrophils 77.5 % (42.0-75.0); Hemoglobin 11.7 g/dL (12.0-16.0); Mean Corpuscular HGB CONC 32.2 g/dL (32.0-36.0); Mean Corpuscular Hemoglobin 29.6 pg (27.0-31.0); Mean Corpuscular Volume 91.8 fL (78.0-98.0); Mean Platelet Volume 6.4 fL (7.4-10.4); Platelet Count 490 thou/uL (130-400); RBC Distribution Width 14.2 % (11.5-14.5); Red Blood Cell (RBC) Count 3.94 mill/uL (4.20-5.40); White Blood Cell (WBC) Count 14.6 thou/uL (4.8-10.8)
[2018-02-22 22:45] LABS: INR-International Normal Ratio 1.1; PTT 32.5 SEC (22.9-36.1); Prothrombin Time 14.4 SEC (12.0-14.7)
[2018-02-22 22:53] LABS: ALT (SGPT) 12 U/L (8-55); AST (SGOT) 23 U/L (5-34); Albumin 3.7 g/dL (3.4-4.8); Alkaline Phosphatase 78 U/L (40-150); Anion Gap 17 mmol/L (10-20); BUN (Urea Nitrogen) 21 mg/dL (9.8-20.1); Bilirubin, Total 0.6 mg/dL (0.2-1.2); CK (CPK) 24 U/L (29-168); Calc. Creatinine Clearance 0 mL/min (70-130); Calcium 9.2 mg/dL (7.8-10.44); Carbon Dioxide 25 mmol/L (23-31); Chloride 94 mmol/L (98-107); Estimated GFR-MDRD 49; Glucose 158 mg/dL (83-110); Potassium 4.2 mmol/L (3.5-5.1); Protein, Total 6.7 g/dL (6.0-8.3); Sodium 132 mmol/L (136-145)
[2018-02-22 22:56] LABS: CKMB 0.9 ng/mL (0-6.6)
[2018-02-22 23:09] LABS: pH, Arterial 7.49 (7.35-7.45)
--- NOTE | 2018-02-22 23:09 | CT ---
CT HEAD NONCONTRAST: 02/22/18 HISTORY: Altered mental status. COMPARISON: 11/30/17. FINDINGS: Large area of low density involving the right temporal and frontal lobes extends through the bruce mat ter and are consistent with vasogenic edema and developing encephalomalacia. Septum pellucidum is mid line. No acute intracranial hemorrhage. Mild chronic ischemic small vessel disease. IMPRESSION: Large area of developing infarct in the distribution of the right middle cerebral artery. No hemorrha ge is evident. Findings were called to Dr. Rock in the Emergency Department at 2250 hours. Code CR POS: [facility]
[2018-02-22 23:10] LABS: Actual Bicarbonate (HCO3a) 26.9 mEq/L (22-28); Base Excess (BEa) 3.7 mEq/L (-2.0 to +3.0); Carboxyhemoglobin (COHb) 0.3 gm% (0.0-3.0); Hemoglobin (Hb) 12.2 g/dL (12.0-16.0); O2 Tension (PaO2) 558.4 mmHg (> 60.0)
[2018-02-22 23:11] LABS: Analyzer IN Cardio ER; Calcium, Ionized 1.08 mmol/L (1.12-1.30); Potassium - ABG Lab 4.48 mmol/L (3.70-5.30); Puncture Site RBA
[2018-02-22] MEDS ORDERED: Propofol 1,000 MG/100 ML VIAL IV ONE (23:19)
--- NOTE | 2018-02-23 00:08 | PDOC.FPRHP ---
- History of Present Illness Chief Complaint: AMS History of Present Illness: 83 yo CF with PMH of previous R MCA CVA with hemorrhagic conversion in November of this year, chronic afib, HTN presenting with AMS from [facility]. History obtained from EMR and ER staff. Reportedly, pt was A&O and conversing and then witnessed to have an acute change in mental status. She was noted to have a left lateral gaze and begin posturing her extremities. Pt was sent to ED for further evaluation. ERMD noted pt was unresponsive and due to concern of airway protection, pt was intubated with RSI (etomidate and succ). 7.5 ETT positioned at 22 cm at lip with CXR confirming position. CT head revealed progression of right MCA CVA with no evidence of hemorrhage. EKG reveals afib with rate 90s. ED Course: Intubated and sedated as described above by GISELL. - Allergies/Adverse Reactions Allergies Allergy/AdvReac Type Severity Reaction Status Date / Time No Known Allergies Allergy Verified 10/01/17 05:35 - Home Medications Medication Instructions Recorded Confirmed Type Pantoprazole [Protonix] 40 mg PO DAILY 07/20/13 02/23/18 History Levothyroxine Sodium [Synthroid] 75 mcg PO DAILY 10/01/17 02/23/18 History Acetaminophen [Tylenol Regular 650 mg PO Q4H PRN tab 10/05/17 02/23/18 Rx Strength] Albuterol Sulfate [Proventil Hfa] 2 puff INH Q4HR PRN inh 10/05/17 02/23/18 Rx Ipratropium/Albuterol Sulfate 3 ml NEB [id number] PRN neb 10/05/17 02/23/18 Rx [DuoNeb] Atorvastatin Calcium [Lipitor] 20 mg PO HS tab 12/04/17 02/23/18 Rx Metoprolol Tartrate [Lopressor] 25 mg PO BID tab 12/04/17 02/23/18 Rx Bisacodyl [Dulcolax] 5 mg PO DAILY PRN 02/23/18 02/23/18 History Bisacodyl [Dulcolax] 10 mg WA DAILY PRN 02/23/18 02/23/18 History DULoxetine HCl 30 mg PO DAILY 02/23/18 02/23/18 History Hydrocortisone/Pramoxine 1 applic TOP TID PRN 02/23/18 02/23/18 History [Proctofoam HC] Lactobacillus [Floranex] 1 tab PO DAILY 02/23/18 02/23/18 History Loperamide HCl [Loperamide] 2 mg PO PRN PRN 02/23/18 02/23/18 History Melatonin 3 mg PO HS PRN 02/23/18 02/23/18 History Multivitamin W/ Minerals 1 tab PO DAILY 02/23/18 02/23/18 History [Theragran M] Polyethylene Glycol 3350 [Miralax] 17 gm BID PRN 02/23/18 02/23/18 History Simethicone 80 mg PO PCHS PRN 02/23/18 02/23/18 History traMADol HCl [Ultram] 50 mg PO QID PRN 02/23/18 02/23/18 History - History PMHx: 1. R MCA CVA with hemorrhagic conversion 11/2017 2. Chronic afib 3. HTN 4. Hypothyroidism 5. HLD PSHx: 1. Laminectomy 2. Bladder lift 3. Bilateral knee replacement 4. Hysterectomy 5. Tonsillectomy 6. Hemorrhoidectomy FHx: Noncontributory Social: Currently resides at [facility] - Review of Systems ROS unobtainable: due to endotracheal tube - Vital signs BP 126/73, HR 94, RR 15, O2 100% on vent 15/350/10, temp 98.6, wt 66kg - Physical Exam Constitutional: other (intubated and sedated) HEENT: normocephalic and atraumatic (Pupils sluggish but ERRL, ETT at 22 cm at lip) Neck: no bruits Heart: normal S1/S2 (irregularly irregular) Lungs: CTAB (coarse ventilatory breath sounds) Abdomen: soft, non-tender, bowel sounds present Neurological: other (+babinski BL, 2 beat clonus LLE, GCS 4 ([id number]) on sedation) FMR H&P: Results - Labs Result Diagrams: 02/23/18 03:38 02/23/18 03:38 Lab results: WBC 14.6 thou/uL (4.8-10.8) H 02/22/18 22:29 Hgb 11.7 g/dL (12.0-16.0) L 02/22/18 22:29 Hct 36.2 % (36.0-47.0) 02/22/18 22: MCV 91.8 fL (78.0-98.0) 02/22/18 22:29 Plt Count 490 thou/uL (130-400) H 02/22/18 22:29 Neutrophils % 77.5 % (42.0-75.0) H 02/22/18 22:29 ABG pH 7.49 (7.35-7.45) H 02/22/18 22:20 ABG pCO2 36.0 mmHg (35.0-45.0) 02/22/18 22: ABG pO2 558.4 mmHg (> 60.0) H* 02/22/18 22:20 Sodium 132 mmol/L (136-145) L 02/22/18 22: Potassium 4.2 mmol/L (3.5-5.1) 02/22/18: Chloride 94 mmol/L (98-107) L 02/22/18: Carbon Dioxide 25 mmol/L (23-31) 02/22/18 22: BUN 21 mg/dL (9.8-20.1) H 02/22/18 22: Creatinine 1.08 mg/dL (0.6-1.1) 02/22/18 22: Glucose 158 mg/dL (83-110) H 02/22/18 22:29 Lactic Acid 1.9 mmol/L (0.5-2.2) 02/22/18: Calcium 9.2 mg/dL (7.8-10.44) 02/22/18: Total Bilirubin 0.6 mg/dL (0.2-1.2) 02/22/18 22: AST 23 U/L (5-34) 02/22/18 22: ALT 12 U/L (8-55) 02/22/18 22:29 Alkaline Phosphatase 78 U/L (40-150) 02/22/18 22: Creatine Kinase 24 U/L (29-168) L 02/22/18 22: CK-MB (CK-2) 0.9 ng/mL (0-6.6) 02/22/18 22: Serum Total Protein 6.7 g/dL (6.0-8.3) 02/22/18 22:29 Albumin 3.7 g/dL (3.4-4.8) 02/22/18 22:29 - Radiology Interpretation CT scan - head Status: image reviewed by me, report reviewed by me (large area of developing infarct in right MCA distribution, no evidence of hemorrhage) FMR H&P: A/P - Problem List (1) Acute right MCA stroke Current Visit: No Status: Acute Code(s): I63.511 - CEREB INFRC D/T UNSP OCCLS OR STENOS OF RIGHT MID CEREB ART (2) Acute respiratory failure Current Visit: Yes Status: Acute Code(s): J96.00 - ACUTE RESPIRATORY FAILURE , UNSP W HYPOXIA OR HYPERCAPNIA (3) Encephalopathy Current Visit: Yes Status: Acute Code(s): G93.40 - ENCEPHALOPATHY, UNSPECIFIED (4) Atrial fibrillation with controlled ventricular rate Current Visit: No Status: Chronic Code(s): I48.91 - UNSPECIFIED ATRIAL FIBRILLATION (5) CKD (chronic kidney disease) stage 3, GFR 30-59 ml/min Current Visit: Yes Status: Acute Code(s): N18.3 - CHRONIC KIDNEY DISEASE, STAGE 3 (MODERATE) (6) Hypertension Current Visit: No Status: Chronic Code(s): I10 - ESSENTIAL (PRIMARY) HYPERTENSION Qualifiers: Hypertension type: essential hypertension Qualified Code(s): I10 - Essential (primary) hypertension (7) Hypothyroid Current Visit: No Status: Chronic Code(s): E03.9 - HYPOTHYROIDISM, UNSPECIFIED FMR H&P: Upper Level - Plan Date/Time: 02/23/18 0007 1. Acute Right MCA CVA -Pt presents with witnessed change in mental status and developing right MCA CVA. Pt is noted to have been hospitalized in November with R MCA CVA with hemorrhagic conversion at that time and discontinuation of Xarelto and ASA. On presentation, pt was intubated for airway protection due to mental status. -Will allow for permissive HTN at this time and continue to monitor closely. -Admit to CCU on mechanical ventilation, continue sedation at this time. Consult pulmonology in AM. -No evidence of hemorrhage on initial CT brain, ASA ordered to be given in ED. -Stroke team consulted. -No family at bedside to discuss prognosis at this time. On previous hospitalizations, pt was noted to be DNR. I personally called [facility] who confirmed FULL code at this time. 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 2. Acute Respiratory Failure 2/2 CVA -Continue mechanical ventilation, repeat ABG in AM. 3. Encephalopathy 2/2 above 3. Chronic atrial fibrillation -Pt currently rate controlled but will monitor on telemetry. -Of note, pt had anticoagulation discontinued in November due to hemorrhagic conversion of R MCA CVA. -Continue home medication. 4. HTN -Permissive HTN at this time, continue to monitor closely. 5. CKD3 6. Hx of R MCA ischemic CVA with hemorrhagic conversion FULL code, confirmed with [facility] PPx: SCDs, protonix disposition: Guarded. Pt admitted to CCU under inpatient status for anticipated length of stay greater than 2 midnights, pending clinical course. Attending Addendum - Attending Addendum Date/Time: 02/22/18 8119 I personally evaluated the patient and discussed the management with Dr. Kauffman. I agree with the History, Examination, Assessment and Plan documented above with any addition or exceptions noted below. Please see my dictated H&P for further details. Also of note, there needs to be clarification of code status. Per NH, patient is FULL CODE which is also corroborated by the ERMD. However, previous hospital notes mention that patient has historically been DNR, so will need to clarify with family today.
[2018-02-23 00:13] LABS: Bilirubin Negative (Negative); Blood, Urine Negative (Negative); Clarity CLEAR (Clear); Glucose, Urine (Dipstick) Negative (Negative); Leukocyte Trace (Negative); Nitrite Negative (Negative); Protein, Urine (Dipstick) Negative (Neg-Trace)
[2018-02-23 00:16] LABS: Bacteria/HPF Rare-Few HPF (None Seen); Hyaline Casts/LPF 0-3 HYALINE CAST LPF (0-3 Hyaline); RBC/HPF 0-3 HPF (0-3); Squamous Epithelial 0-3 HPF (0-3); WBC/HPF 0-3 HPF (0-3)
[2018-02-23] MEDS ORDERED: Aspirin 300 MG Suppository ONE (00:44)
[2018-02-23] MEDS ORDERED: Acetaminophen 650 MG Suppository PR PRN (00:58)
[2018-02-23] MEDS ORDERED: CCU Electrolyte Replacement 1 EACH FS SCH (00:58)
[2018-02-23] MEDS ORDERED: Labetalol HCl 100 MG/20 ML VIAL SLOW IVP PRN (00:58)
[2018-02-23] MEDS ORDERED: Ventilator Sedation Protocol 1 EACH FS SCH (00:58)
[2018-02-23] MEDS ORDERED: hydrALAZINE 20 MG/ML VIAL SLOW IVP PRN (00:58)
[2018-02-23] MEDS ORDERED: Ondansetron PF 4 MG/2 ML Vial IVP PRN (00:58)
[2018-02-23] MEDS ORDERED: Propofol BOLUS 1,000 MG/100 ML VIAL IV PRN (01:06)
[2018-02-23] MEDS ORDERED: Fentanyl BOLUS 250 ML IVPB PRN (01:06)
[2018-02-23] MEDS ORDERED: Lorazepam 2 MG/ML VIAL SLOW IVP PRN (01:06)
[2018-02-23] MEDS ORDERED: DISCONTINUE PREVIOUS NARCOTIC PAIN MEDICATIONS AND BENZODIAZEPINES FS SCH (01:06)
[2018-02-23] MEDS ORDERED: fentaNYL Citrate/PF 2,000 MCG in Sodium Chloride 0.9% 60 ML IV SCH (01:06)
[2018-02-23] MEDS ORDERED: Potassium Chloride 20 MEQ TAB PO PRN (01:07)
[2018-02-23] MEDS ORDERED: Potassium Chloride 40 MEQ in Premix Bag 1 BAG IVPB PRN (01:07)
[2018-02-23] MEDS ORDERED: Potassium Phosphate 12 MMOL in Sodium Chloride 0.9% 250 ML 250 ML IV PRN (01:07)
[2018-02-23] MEDS ORDERED: Potassium Chloride 40 MEQ in Sodium Chloride 0.9% 250 ML 250 ML IVPB PRN (01:07)
[2018-02-23] MEDS ORDERED: CCU ELECTROLYTE REPLACEMENT PROTOCOL FS PRN (01:07)
[2018-02-23] MEDS ORDERED: Potassium Phosphate 15 MMOL in Sodium Chloride 0.9% 250 ML 250 ML IV PRN (01:07)
[2018-02-23] MEDS ORDERED: Magnesium Oxide 400 MG TAB PO PRN ×2 (01:07)
[2018-02-23] MEDS ORDERED: Potassium Phosphate 9 MMOL in Sodium Chloride 0.9% 100 ML IVPB PRN (01:07)
[2018-02-23] MEDS ORDERED: Magnesium 2 GM/NS 0.9% 100 ML 2 GM in Premix Bag 1 BAG IVPB PRN (01:07)
[2018-02-23 02:05] VITALS: BMI 25.4
[2018-02-23 03:48] LABS: #Eosinphils 0.2 thou/uL (0.0-0.7); #Lymphocytes 1.4 thou/uL (1.20-3.40); #Monocytes 1.1 thou/uL (0.11-0.59); %Basophils 0.1 % (0.0-1.0); %Eosinophils 1.1 % (0.0-10.0); %Lymphocytes 9.4 % (21.0-51.0); %Monocytes 7.6 % (0.0-10.0); %Neutrophils 81.8 % (42.0-75.0); Hemoglobin 10.8 g/dL (12.0-16.0); Mean Corpuscular HGB CONC 32.3 g/dL (32.0-36.0); Mean Corpuscular Hemoglobin 29.2 pg (27.0-31.0); Mean Corpuscular Volume 90.3 fL (78.0-98.0); Mean Platelet Volume 6.4 fL (7.4-10.4); Platelet Count 475 thou/uL (130-400); RBC Distribution Width 14.1 % (11.5-14.5); Red Blood Cell (RBC) Count 3.71 mill/uL (4.20-5.40); White Blood Cell (WBC) Count 14.7 thou/uL (4.8-10.8)
[2018-02-23 04:07] LABS: Anion Gap 14 mmol/L (10-20); BUN (Urea Nitrogen) 24 mg/dL (9.8-20.1); Calc. Creatinine Clearance 45 mL/min (70-130); Calcium 9.3 mg/dL (7.8-10.44); Carbon Dioxide 28 mmol/L (23-31); Cardiac Risk 3.2 (Less than 4.5); Chloride 95 mmol/L (98-107); Cholesterol 146 mg/dl (< 200 Desired); Estimated GFR-MDRD 50; Glucose 149 mg/dL (83-110); HDL Cholesterol 46 mg/dL (>60 Neg Risk); LDL Cholesterol, Calculated 83 mg/dL; Potassium 3.2 mmol/L (3.5-5.1); Sodium 134 mmol/L (136-145); Triglycerides 84 mg/dL (Less than 150)
[2018-02-23 06:57] LABS: Actual Bicarbonate (HCO3a) 29.8 mEq/L (22-28); CO2 Tension 32.1 mmHg (35.0-45.0); Carboxyhemoglobin (COHb) 0.5 gm% (0.0-3.0); Hemoglobin (Hb) 11.2 g/dL (12.0-16.0); O2 Tension (PaO2) 160.9 mmHg (> 60.0)
[2018-02-23 07:04] LABS: pH, Arterial 7.59 (7.35-7.45)
--- NOTE | 2018-02-23 07:04 | PDOC.FM ---
- Subjective Subjective: Patient currently remains intubated and sedated in the CCU. GCS 4, currently on propofol. - Objective MAR Reviewed: Yes Vital Signs & Weight: Vital Signs (12 hours) Temp Pulse Resp BP BP Pulse Ox 02/23/18 06:50 98 76/62 L 02/23/18 06:00 27 H 02/23/18 04:00 99.4 F 24 H 02/23/18 02:00 22 H 02/23/18 01:10 100 02/23/18 01:05 99.1 F 85 24 H 167/112 H 100 02/23/18 00:58 22 H Weight Weight 67.1 kg Most Recent Monitor Data Heart Rate from ECG 94 NIBP 149/90 NIBP BP-Mean 109 Respiration from ECG 29 SpO2 100 I&O: 02/22/18 02/23/18 02/24/18 06:59 06:59 06:59 Intake Total 70 Output Total 310 Balance -240 Result Diagrams: 02/23/18 03:38 02/23/18 03:38 Radiology Reviewed by me: Yes (Large ischemic infarct in region of R MCA on CT head) <Nathaly Carrasco - Last Filed: 02/23/18 07:02> - Objective Vital Signs & Weight: Vital Signs (12 hours) Temp Pulse Resp BP BP Pulse Ox 02/23/18 08:00 24 H 100 02/23/18 06:50 98 76/62 L 02/23/18 06:00 27 H 02/23/18 04:00 99.4 F 24 H 02/23/18 02:00 22 H 02/23/18 01:10 100 02/23/18 01:05 99.1 F 85 24 H 167/112 H 100 02/23/18 00:58 22 H Weight Weight 67.1 kg Most Recent Monitor Data Heart Rate from ECG 107 NIBP 176/96 NIBP BP-Mean 122 Respiration from ECG 21 SpO2 100 I&O: 02/22/18 02/23/18 02/24/18 06:59 06:59 06:59 Intake Total 70 0 Output Total 310 30 Balance -240 -30 Result Diagrams: 02/23/18 03:38 02/23/18 03:38 <Anatoly Humphries - Last Filed: 02/23/18 09:58> Phys Exam - Physical Examination Constitutional: NAD HEENT: PERRLA, moist MMs L lateral deviation of gaze. ET tube in place. Respiratory: no wheezing, no rales, no rhonchi, clear to auscultation bilateral Cardiovascular: RRR, no significant murmur, no rub Gastrointestinal: soft, non-tender, no distention, positive bowel sounds Musculoskeletal: no edema, pulses present GCS 4 (E1V1M2), decerebrate posturing, +babinski bilaterally Skin: normal turgor, cap refill <2 seconds <Nathaly Carrasco - Last Filed: 02/23/18 07:02> Dx/Plan (1) Acute right MCA stroke Code(s): I63.511 - CEREB INFRC D/T UNSP OCCLS OR STENOS OF RIGHT MID CEREB ART Status: Acute (2) Encephalopathy Code(s): G93.40 - ENCEPHALOPATHY, UNSPECIFIED Status: Acute (3) Acute respiratory failure Code(s): J96.00 - ACUTE RESPIRATORY FAILURE, UNSP W HYPOXIA OR HYPERCAPNIA Status: Acute Qualifiers: Respiratory failure complication: unspecified whether with hypoxia or hypercapnia Qualified Code(s): J96.00 - Acute respiratory failure, unspecified whether with hypoxia or hypercapnia (4) CKD (chronic kidney disease) stage 3, GFR 30-59 ml/min Code(s): N18.3 - CHRONIC KIDNEY DISEASE, STAGE 3 (MODERATE) Status: Acute (5) Atrial fibrillation with controlled ventricular rate Code(s): I48.91 - UNSPECIFIED ATRIAL FIBRILLATION Status: Chronic (6) Hypertension Code(s): I10 - ESSENTIAL (PRIMARY) HYPERTENSION Status: Chronic Qualifiers: Hypertension type: essential hypertension Qualified Code(s): I10 - Essential (primary) hypertension - Plan Plan: Acute Right MCA CVA Pt has h/o R MCA CVA with hemorrhagic conversion in 12/14. Aspirin and Plavix were d/c'd at that time. Pt developed witnessed change in mental status on . On presentation, pt was intubated for airway protection due to mental status. -Will allow for permissive HTN at this time and continue to monitor closely. -Ventilated, on sedation -Consult neuro, appreciate recs -No evidence of hemorrhage on initial CT brain, continue aspirin -Stroke team consulted. -No family at bedside to discuss prognosis at this time. On previous hospitalizations, pt was noted to be DNR. [facility] was called by admitting team who confirmed FULL code at this time. 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 Will attempt to contact next living relative to further discuss patient wishes and prognosis. Acute Respiratory Failure 2/2 CVA Current vent settings: SIMV-VC, Rate 15, TV 400, Pressure Support 10, PEEP 5, FiO2 40%. Pt is breathing over the vent almost every other breath to make the actual rate about 25-27. -Continue mechanical ventilation -Repeat ABG -Will consult Pulm, appreciate recs Encephalopathy 2/2 CVA -Will monitor mental status -MRI if pt wakes up, currently on propofol for sedation Chronic atrial fibrillation Pt currently rate controlled -Of note, pt had anticoagulation discontinued in November due to hemorrhagic conversion of R MCA CVA. -Will confirm home medication with [facility]/PCP HTN -Permissive HTN at this time, continue to monitor closely. CKD3 Stable -Will monitor and renally dose meds as appropriate Hx of R MCA ischemic CVA with hemorrhagic conversion Plan as above FULL code, confirmed with [facility] PPx: SCDs, protonix Prognosis is poor. <Nathaly Carrasco - Last Filed: 02/23/18 07:02> (1) Acute right MCA stroke Code(s): I63.511 - CEREB INFRC D/T UNSP OCCLS OR STENOS OF RIGHT MID CEREB ART Status: Acute (2) Acute respiratory failure Code(s): J96.00 - ACUTE RESPIRATORY FAILURE, UNSP W HYPOXIA OR HYPERCAPNIA Status: Acute Qualifiers: Respiratory failure complication: unspecified whether with hypoxia or hypercapnia Qualified Code(s): J96.00 - Acute respiratory failure, unspecified whether with hypoxia or hypercapnia (3) Encephalopathy Code(s): G93.40 - ENCEPHALOPATHY, UNSPECIFIED Status: Acute (4) Atrial fibrillation with controlled ventricular rate Code(s): I48.91 - UNSPECIFIED ATRIAL FIBRILLATION Status: Chronic (5) CKD (chronic kidney disease) stage 3, GFR 30-59 ml/min Code(s): N18.3 - CHRONIC KIDNEY DISEASE, STAGE 3 (MODERATE) Status: Acute (6) Hypertension Code(s): I10 - ESSENTIAL (PRIMARY) HYPERTENSION Status: Chronic Qualifiers: Hypertension type: essential hypertension Qualified Code(s): I10 - Essential (primary) hypertension (7) Hypothyroid Code(s): E03.9 - HYPOTHYROIDISM, UNSPECIFIED Status: Chronic <Anatoly Humphries R - Last Filed: 02/23/18 09:58> Attending Addendum - Attending Addendum Date/Time: 02/23/1856 I personally evaluated the patient and discussed the management with Dr. Carrasco. I agree with the History, Examination, Assessment and Plan documented above with any addition or exceptions noted below. No major changes over the last few hours. She is overbreathing the vent, which is reassuring. No hemodynamic changes to suggest impending herniation but will need to continue to monitor for that. Consult CC team and Neuro. Will likely remain on ventilator and see how she does today. Uncertain at this time how much meaningful recovery is possible. On ASA therapy at this time but keep in mind the potential for hemorrhagic transformation of her large infarct. Will discuss code status and clarify this morning with family. <Anatoly Humphries - Last Filed: 02/23/18 09:58>
[2018-02-23 07:05] LABS: ALV-art Gradient 84.175 (0-20); Puncture Site RBRACH
[2018-02-23] MEDS: Aspirin 81 mg Enteric Coated Tablet PO SCH (09:00)
[2018-02-23] MEDS ORDERED: Prevnar 13-Val Conj/PF 0.5 ML SYRINGE IM ONE (09:00)
--- NOTE | 2018-02-23 11:37 | CON ---
DATE OF CONSULTATION: 02/23/2018 This is a 45 minutes critical care time including time spent talking with the patient's son at the [facility]. HISTORY OF PRESENT ILLNESS: The patient is an 83-year-old female who is a resident of one of the [facility]. She was transported to the emergency room last night after having acute changes in mental status. She was found to have extension of a previous right MCA distribution stroke, for ifrah sons that are not clear to me, she was intubated. Her son tells me that she had out of hospital DNR and I am not sure why that was not respected in the ER. She is currently intubated and on mechanical ventilation. PAST MEDICAL HISTORY: 1. Previous right MCA distribution stroke in 11/2017. 2. Chronic atrial fibrillation. 3. Hypertension. 4. Hypothyroidism. 5. Hyperlipidemia. PAST SURGICAL HISTORY: 1. Laminectomy. 2. Bladder lift. 3. Bilateral knee replacements. 4. Hysterectomy. 5. Tonsillectomy. 6. Hemorrhoidectomy. FAMILY MEDICAL HISTORY: Unremarkable. SOCIAL HISTORY: Nonsmoker, does not consume alcohol. MEDICATIONS PRIOR TO ADMISSION: These were reviewed and are listed under the home medication list in [employer]. REVIEW OF SYSTEMS: Cannot be obtained as the patient is on mechanical ventilation. PHYSICAL EXAMINATION: VITAL SIGNS: Temperature 99.4, pulse 107, blood pressure 172/96, O2 sat 100%, respiratory rate 21. Total intake 70, output 310. NEUROLOGIC: Her eyes are deviated leftward. Her pupils are 3 mm, sluggishly responsive. She has a gag reflex. She has spontaneous respirations. She has withdrawal to pain in all 4 extremities. She looks somewhat hemiparetic on the left from a previous stroke. HEENT: Otherwise unremarkable. NECK: No JVD. CHEST: Clear without wheezing or rhonchi. CARDIAC: S1, S2 regular, without murmur. ABDOMEN: Soft, nontender. EXTREMITIES: No edema. LABORATORY DATA AND X-RAY FINDINGS: Her x-ray shows no pulmonary infiltrates. ET tube is in good po sition. PH 7.59, pCO2 of 32, pO2 of 160 on SIMV rate 15, tidal volume 400, PEEP 5, pressure support 10, FiO2 40%. White blood cell count 14.7, hematocrit 33.5, platelet count 475. INR 1.1. Sodium 13 4, potassium 3.2, chloride 95, CO2 28, BUN 24, creatinine 1.1, glucose 149. ASSESSMENT: 1. Extension of a previous right middle cerebral artery distribution stroke. 2. Acute respiratory failure requiring mechanical ventilation. 3. Chronic atrial fibrillation. 4. Hypertension. PLAN: The patient's son wants to reinstate the DNR. He wants the breathing tube removed after the r emainder of the family has come to see the patient given that this is the patient's wishes. I fully agree with the plan to extubate later.
[2018-02-23] MEDS ORDERED: Acetaminophen 650 MG/20.3 ML UDCUP PO PRN (13:58)
--- NOTE | 2018-02-23 14:16 | PDOC.EVN ---
Event Note - Event Note Event Note: Residents paged that patient spiked a fever of 102. Conversation with son in the room indicated that the family would like to continue routine care for the next 48 hours or so to see if her status changes, repeat CT in the AM. Blood cultures ordered, tylenol PRN, Vanc/zosyn for empiric coverage.
[2018-02-23] MEDS ORDERED: VANCOMYCIN HCL IVPB SCH (15:00)
--- NOTE | 2018-02-23 16:04 | CON ---
NEUROLOGICAL CONSULTATION DATE OF CONSULTATION: 02/23/2018 CONSULTING PHYSICIAN: Family Medicine service. IMPRESSION: Clinical exam suggests that she has had bilateral cerebral injury, although the CT scan only shows a large right middle cerebral artery stroke at this point. 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 She mitesh jackson is semicomatose. Her prognosis for functional recovery appears to be a little to none. PLAN: 1. Repeat CT scan of the brain tomorrow to determine the degree of brain injury. Ms. Mantilla is an 83-year-old woman with a past history of atrial fibrillation, on anticoagulation. She presented in November with left-sided weakness and a hemorrhagic stroke. Her anticoagulants were discontinued. She was transferred to [facility]. She was noted to have a change in her status and wa s transferred back. Her brother reports that she was able to use her right hand to feed herself. Martín christopher was nonambulatory except with 2-person assistance. She could not bathe or dress herself independen peterson. She had a CT of the brain done on admission showing evolving right middle cerebral artery strok e. She is in atrial fibrillation with a rate of about 120. Blood pressures have been elevated aroun d 180/100. She is subsequently intubated. She apparently is chewing on the exits of the ET tube. T hey are planning to start some propofol for sedation. She has of fever of 102.8. PAST MEDICAL HISTORY: As noted above. ALLERGIES: None reported. SOCIAL HISTORY: No tobacco use. FAMILY HISTORY: Not obtainable. REVIEW OF SYSTEMS: Not obtainable. PHYSICAL EXAMINATION: GENERAL: She is a well-nourished elderly lady on ventilatory support. VITAL SIGNS: Blood pressure 180/100, pulse 126, respirations 27, temperature 102.8. HEENT: Pupils are equal and reactive. Conjunctivae clear. Eyes are deviated to the left. She woul d not maintain eye opening with stimulation. NEUROLOGIC: Her tone in her right arm is quite flaccid. There is increased tone in the left arm. T here is bilateral extensor posturing of both legs. Plantar responses were upgoing bilaterally. No a bnormal movements were seen. SUMMARY: This is an elderly lady likely has had bilateral cerebral infarcts and probable aspiration pneumonia. Her prognosis is quite poor. She had an advanced directive and was DNR. I do not think the family is wishing to have a PEG tube placed. I would be in favor of reducing support and comfort measures.
[2018-02-23] MEDS: Piperacillin/Tazobactam 3.375 GM in Sodium Chloride 0.9% 100 ML IVPB SCH ×2 (18:04→23:42)
[2018-02-23] MEDS: Sodium Chloride 0.9% 1,000 ML IV SCH ×2 (18:33→21:35)
[2018-02-23] MEDS: Propofol 1,000 MG/100 ML VIAL IV PRN (20:21)
[2018-02-23] MEDS ORDERED: Atorvastatin Calcium 40 MG TAB PO SCH (21:00)
[2018-02-24] MEDS: Propofol 1,000 MG/100 ML VIAL IV PRN (04:09)
[2018-02-24 05:00] LABS: #Basophils 0.1 thou/uL (0.0-0.2); #Eosinphils 0.1 thou/uL (0.0-0.7); #Lymphocytes 1.2 thou/uL (1.20-3.40); #Monocytes 1.6 thou/uL (0.11-0.59); #Neutrophils 14.5 thou/uL (1.40-6.50); %Basophils 0.4 % (0.0-1.0); %Eosinophils 0.8 % (0.0-10.0); %Lymphocytes 6.9 % (21.0-51.0); %Neutrophils 82.8 % (42.0-75.0); Hemoglobin 10.8 g/dL (12.0-16.0); Mean Corpuscular Hemoglobin 29.3 pg (27.0-31.0); Mean Corpuscular Volume 91.6 fL (78.0-98.0); Mean Platelet Volume 6.8 fL (7.4-10.4); Platelet Count 415 thou/uL (130-400); RBC Distribution Width 14.3 % (11.5-14.5); White Blood Cell (WBC) Count 17.5 thou/uL (4.8-10.8)
[2018-02-24 05:25] LABS: Anion Gap 15 mmol/L (10-20); BUN (Urea Nitrogen) 23 mg/dL (9.8-20.1); Calc. Creatinine Clearance 42 mL/min (70-130); Carbon Dioxide 25 mmol/L (23-31); Chloride 101 mmol/L (98-107); Estimated GFR-MDRD 47; Glucose 119 mg/dL (83-110); Potassium 3.8 mmol/L (3.5-5.1); Sodium 137 mmol/L (136-145)
[2018-02-24] MEDS: Sodium Chloride 0.9% 1,000 ML IV SCH (06:06)
[2018-02-24] MEDS: Piperacillin/Tazobactam 3.375 GM in Sodium Chloride 0.9% 100 ML IVPB SCH ×2 (06:06→12:55)
[2018-02-24 06:44] VITALS: BP 133/85
--- NOTE | 2018-02-24 08:03 | PDOC.FM ---
- Subjective Subjective: 83 yo female admitted for a right CVA with a new found CVA on CT this morning. Pt is intubated and sedated on diprovan. Spoke with JOSE MANUEL (son in [place], [place]) who would like to proceed with hospice. Will plan for hospice once son who lives in [place] arrives. - Objective MAR Reviewed: Yes Vital Signs & Weight: Vital Signs (12 hours) Pulse Resp BP 02/24/18 06:41 101 H 133/85 02/24/18 06:00 14 02/24/18 04:00 12 02/24/18 02:00 22 H 02/24/18 00:00 19 02/23/18 22:00 18 Weight Admit Weight 67.1 kg Weight 67.1 kg Most Recent Monitor Data Heart Rate from ECG 108 NIBP 133/85 NIBP BP-Mean 101 Respiration from ECG 16 SpO2 100 I&O: 02/23/18 02/24/18 02/25/18 06:59 06:59 06:59 Intake Total 70 2222.8 Output Total 310 625 Balance -240 1597.8 Result Diagrams: 02/24/18 04:35 02/24/18 04:35 <Caitie Mejia - Last Filed: 02/24/18 10:03> - Objective Vital Signs & Weight: Vital Signs (12 hours) Temp Pulse Resp BP Pulse Ox 02/24/18 10:00 20 02/24/18 08:00 99.0 F 14 94 L 02/24/18 06:41 101 H 133/85 02/24/18 06:00 14 02/24/18 04:00 12 Weight Admit Weight 67.1 kg Weight 67.1 kg Most Recent Monitor Data Heart Rate from ECG 130 NIBP 139/90 NIBP BP-Mean 106 Respiration from ECG 25 SpO2 100 I&O: 02/23/18 02/24/18 02/25/18 06:59 06:59 06:59 Intake Total 70 2222.8 Output Total 310 625 145 Balance -240 1597.8 -145 Result Diagrams: 02/24/18 04:35 02/24/18 04:35 <Sheila Pardo - Last Filed: 02/24/18 15:06> Phys Exam - Physical Examination Constitutional: NAD HEENT: PERRLA (minimal) cough and gag reflex intact Respiratory: no wheezing, clear to auscultation bilateral tachycardic Gastrointestinal: soft, non-tender Musculoskeletal: no edema hyperreflexive, posturing and rigidity of left arm, responds to pain does not respond to commands; left lateral gaze <Caitie Mejia - Last Filed: 02/24/18 10:03> Dx/Plan (1) Acute right MCA stroke Code(s): I63.511 - CEREB INFRC D/T UNSP OCCLS OR STENOS OF RIGHT MID CEREB ART Status: Acute (2) Acute ischemic left MCA stroke Code(s): I63.512 - CEREB INFRC D/T UNSP OCCLS OR STENOS OF LEFT MID CEREB ART Status: Acute (3) Acute respiratory failure Code(s): J96.00 - ACUTE RESPIRATORY FAILURE, UNSP W HYPOXIA OR HYPERCAPNIA Status: Acute Qualifiers: Respiratory failure complication: unspecified whether with hypoxia or hypercapnia Qualified Code(s): J96.00 - Acute respiratory failure, unspecified whether with hypoxia or hypercapnia (4) Chronic kidney disease Code(s): N18.9 - CHRONIC KIDNEY DISEASE, UNSPECIFIED Status: Chronic Qualifiers: Chronic kidney disease stage: stage 3 (moderate) Qualified Code(s): N18.3 - Chronic kidney disease, stage 3 (moderate) (5) HTN (hypertension) Code(s): I10 - ESSENTIAL (PRIMARY) HYPERTENSION Status: Chronic Qualifiers: Hypertension type: essential hypertension Qualified Code(s): I10 - Essential (primary) hypertension (6) Hypothyroid Code(s): E03.9 - HYPOTHYROIDISM, UNSPECIFIED Status: Chronic (7) Atrial fibrillation, chronic Code(s): I48.2 - CHRONIC ATRIAL FIBRILLATION Status: Acute - Plan Plan: 83 yo f with hx of recent right mca with hemorrhagic conversion in November 2017 admitted for a new right mca infarct and now with a new left mca infarct. #Acute Right MCA CVA Pt has h/o R MCA CVA with hemorrhagic conversion in 12/14. Aspirin and Plavix were d/c'd at that time. Pt developed witnessed change in mental status on . On presentation, pt was intubated for airway protection due to mental status. -Will allow for permissive HTN at this time and continue to monitor closely. -Ventilated, on sedation -Consult neuro, appreciate recs -No evidence of hemorrhage on initial CT brain, continue aspirin -Stroke team consulted. -No family at bedside to discuss prognosis at this time. On previous hospitalizations, pt was noted to be DNR. SIN Molina was called by admitting team who confirmed FULL code at this time. This will be important for the patient's hospitalization and [employer] management. Will attempt to contact next living relative to further discuss patient wishes and prognosis. -Head CT this am showed a new left MCA -Spoke with MPOA who desires hospice care once pt's other son arrives #Acute Respiratory Failure 2/2 CVA -SIMV-VC -Continue mechanical ventilation -Will consult Pulm, appreciate recs #Encephalopathy 2/2 CVA -Will monitor mental status -currently on propofol for sedation #Chronic atrial fibrillation -Pt currently rate controlled -Of note, pt had anticoagulation discontinued in November due to hemorrhagic conversion of R MCA CVA. #HTN -Permissive HTN at this time, continue to monitor closely. #CKD3 -Stable -Will monitor and renally dose meds as appropriate #Hx of R MCA ischemic CVA with hemorrhagic conversion Plan as above CODE: DNR PPx: SCDs, protonix Prognosis is poor. <Caitie Mejia - Last Filed: 02/24/18 10:03> Attending Addendum - Attending Addendum Date/Time: 02/24/18 1501 I personally evaluated the patient and discussed the management with Dr. Mejia I agree with the History, Examination, Assessment and Plan documented above with any addition or exceptions noted below. Very poor prognosis. Disabling and severe right MCA CVA. Awaiting family to discuss plan of care. POA considering palliative. Ann <Sheila Pardo - Last Filed: 02/24/18 15:06>
--- NOTE | 2018-02-24 09:33 | PRG ---
DATE OF SERVICE: 02/24/2018 She was admitted to the hospital following a CVA. CAT scan shows a large right MCA distribution infa rct. She has always been a DNR. She was intubated. Awaiting family arrival. PHYSICAL EXAMINATION: HEENT: Eyes are deviated to the left side, she is unresponsive. Low dose Diprivan on board. CHEST: Chest reveals decreased breath sounds, no wheezing. CARDIAC: Normal S1, S2, no gallops. ABDOMEN: Soft, without masses. LABORATORY: Creatinine is 1.1. White count 17,000, H&H 10 and 33, platelet count 415. Chest x-ray was normal. IMPRESSION: 1. Cerebrovascular accident. 2. Advanced age. 3. Recent hospitalization for renal failure. 4. Chronic cough. PLAN: We will continue vent support until we assess input from family. Supportive care. One-half hour critical care time.
[2018-02-24] MEDS: Aspirin 81 mg Enteric Coated Tablet PO SCH (09:59)
--- NOTE | 2018-02-24 10:39 | HP ---
DATE OF ADMISSION: 02/22/2018 TIME OF ADMISSION: 2330 hours. This is an attending history and physical for patient, Peace Mantilla. For full history and physica l details, please see Dr. Mario Alberto Kauffman's electronic H&P. Portions of the history and physical have b een repeated by myself and I am in agreement with the assessment and plan as documented. In brief, this patient is an 83-year-old female with a history of hypertension, CKD 3, chronic atrial fibrillation, and a history of recent right-sided MCA, CVA with resultant left-sided residual weakne ss and also mild hemorrhagic conversion of that CVA, who presents to the ER tonight after an acute me ntal status change. All history was obtained from the ER, EMS, and residential records as no family was available. Per records, the patient was in her baseline state of health, walking and talking ap propriately and then after at approximately 10 minutes later, she had worsening mentation to the poin t of being minimally responsive. Nursing at that time noted the patient had extreme bilateral eye de viation to the left. She was transferred to the EMS where due to declining mental status, she was in tubated for airway protection. Also, of note, EMS did report some unspecified posturing of the patie nt during this time. They did not mention any note of any myoclonic jerks or seizure activity. Eyes continued to be deviated to the left until the patient was placed on propofol for sedation. Upon review of the patient's records, she was admitted at this institution back in November for similar presentation. She had mental status changes as well as some weakness and was found to have a large right MCA CVA that resulted in left-sided weakness. During the course of hospitalization, she had so me hemorrhagic conversion, at that time was taken off aspirin and Xarelto. She was evaluated during that hospitalization by her primary team as well as Critical Care, Neurology, and Neurosurgery. I be lieve Neurosurgery was consulted because the patient did have some approximately 4 mm of midline shif t. However, apparently at the time of discharge, the patient was doing well and was sent to [facility] for further therapy. Also, of note, in the record that the patient was seen in the ER approximately 1 week ago with compla int of chest tightness as well as left-sided weakness. CTA was performed at that time, showed no pul monary embolism and the patient was discharged back to her rehab facility. PHYSICAL EXAMINATION: At the time of my exam, the patient's vitals were as of the following: VITAL SIGNS: Temperature afebrile, pulse 90s, irregular, respirations were 15 on mechanical ventilat ion. Blood pressure was 150s/80s. Oxygen saturation 98% on 100% FiO2. GENERAL: The patient sedated, nonresponsive. HEENT: Atraumatic, normocephalic. Pupils were constricted and sluggishly responsive to light. They were equal. At the time of my exam, she did not have any lateral gaze deviation. Intermittent nyst agmus noted. ET tube as well as OG tube noted to be in place. There was a mild amount of blood on t he lips of the patient, but no active bleeding noted. NECK: Supple without lymphadenopathy. CARDIOVASCULAR: Revealed an irregular rhythm, but regular rate in the 90s. No major murmurs, rubs, or gallops. LUNGS: Clear bilaterally to auscultation, though there were upper airway sounds transmitted by the v entilator. ABDOMEN: Soft, nondistended. Bowel sounds hypoactive. EXTREMITIES: There was no clubbing, cyanosis, or edema. Pulses were 2+ in the upper and lower extre mities bilaterally. NEUROLOGIC: Limited secondary to patient's sedation on the ventilator. However, she was noted to chambers ve bilateral upgoing Babinskis. Also noted to be 4-5 beats of myoclonus in the left lower extremity. Further neurological exam not attempted at this time. LABORATORY AND DIAGNOSTIC DATA: 1. CBC with WBC 14.6, H&H 11.7 and 36.2, platelets 490, 77% neutrophils. 2. CMP: Sodium 132, potassium 4.2, chloride 94, bicarbonate 25, BUN 21, creatinine 1.08, GFR 49, gl ucose 158. 3. Lactic acid 1.9. 4. LFTs were overtly within normal limits. 5. Cardiac enzymes show CK-MB of 0.9, troponin of 0.020. 6. Coagulation studies reveal PT 14.4, PTT 32.5, INR 1.1. 7. Blood gas showed pH 7.49, pCO2 of 36, PaO2 of 558.4. 8. Urinalysis was overtly normal with trace leukocyte esterase. 9. Chest x-ray revealed no major abnormalities of the endotracheal tube in place and good radiograph ic position. 10. Brain CT showed a large area of developing infarct in the distribution of the right middle cereb ral artery. No hemorrhage evident. Upon review of myself of these images compared to the CAT scan november, there is definitely worsening of the infarct and encephalomalacia. ASSESSMENT AND PLAN: This is an 83-year-old female with a history of a right-sided middle cerebral a rtery, cerebrovascular accident, presenting with a sudden deterioration in neurological function and now evidence of upper motor neuron dysfunction and CT findings consistent with a worsening right-side d cerebrovascular accident. 1. Massive and likely catastrophic right-sided cerebrovascular accident, suspect a middle cerebral a rtery territory. The patient had such decline in her mental status and such a motor neuron dysfuncti on that she had to be intubated in the ER. She is currently stable on that. CT scan shows massive i nfarct, but currently no midline shift. Due to the size of the infarct and the mild cytotoxic edema surrounding it, we will need to monitor her overnight to ensure that there is no evidence of herniati on. The patient will be admitted to the ICU, she is ventilated. Aspirin has been given rectally. T here does not appear to be any hemorrhagic conversion or any evidence of hemorrhage at this time, so we will continue the patient on aspirin for now. Neurology and Stroke Team consult in the morning. CTA deferred at this time as radiology reports that would likely not give us any further beneficial i nformation. Possible MRI if the patient stabilizes and for prognostic factors if she does not show a ny improvement over the next day or two. 2. Encephalopathy secondary to #1 above. As above, this is likely due to the patient's massive infa rct. She has been intubated for airway protection, we will continue that for now. There does not ap pear to be any major infectious cause that would be resulting in her symptoms. This is likely due to the patient's propensity for thrombotic events with chronic atrial fibrillation, but inability to an ticoagulate due to hemorrhagic conversion of her previous cerebrovascular accident. 3. Respiratory failure secondary to #1 above. Ventilator and Critical Care support as mentioned. 4. Chronic atrial fibrillation. Patient is currently in chronic atrial fibrillation with a rate in the 90s. Continue to monitor and give rate control medications as needed. No point in repeating ech o as this was just recently performed. She will be continued on aspirin for now, but will probably n eed to check that she has any hemorrhagic conversion of this current infarct. Consult Neuro as above . 5. History of cerebrovascular accident with left-sided weakness. No changes to the management plan at this time. We will consult therapy services if the patient has any return in mental status that w ould allow her to make any meaningful progress. 6. Hypertension. Currently is well controlled. Now blood pressures were in the 150s/80s during the time of my exam. We will allow permissive hypertension, but at this time, I do not see that being a n issue. 7. Chronic kidney disease 3. Creatinine currently stable, continue to monitor. Sixty minutes critical care time provided in the stabilization and treatment of this patient as well as review of records and previous hospitalizations, with meaningful treatment plan.
--- NOTE | 2018-02-24 10:45 | CT ---
PRELIMINARY REPORT/[facility]/EMERGENTY AFTER-HOURS PROCEDURE Addendum created by Keith Juares MD on 02/24/2018 7:29 AM Central Time ([place] & [place])THIS REPORT CONTA INS FINDINGS THAT MAY BE CRITICAL TO PATIENT CARE. The findings were verbally communicated via teleph one conference with Dr. Mejia at 7:28 AM CDT on 02/24/2018. The findings were acknowledged and under stood. Addendum created by Keith Juares MD on 02/24/2018 7:26 AM Central Time ([place] & [place]) THIS REPORT CONTAINS FINDINGS THAT MAY BE CRITICAL TO PATIENT CARE. The findings were verbally commun icated via telephone conference with ADEOLA Brewer at 7:26 AM CDT on 02/24/2018. The findings w ere acknowledged and understood. Initial Report created on 02/24/2018 6:51 AM Central Time ([place] & [place]) CT Head Without Intravenous Contrast EXAM DATE/TIME: 02/24/2018 3:09 AM CLINICAL HISTORY: 83 years old, female; Signs and symptoms; Altered mental status/memory loss; Patient HX: F/u TECHNIQUE: Axial computed tomography images of the head/brain without intravenous contrast. COMPARISON: No relevant prior studies available. FINDINGS: Brain: There is large RIGHT MCA territory hypoattenuation compatible with prior infarction. There is large area of hypoattenuation involving the LEFT temporoparietal lobe, not described on prior exam an d possibly reflective of new acute infarction. Midline shift: Evaluation for midline shift is somewhat limited due to patient positioning. No obviou s shift on provided images. Ventricles: Normal. No ventriculomegaly. Bones/joints: Normal. No acute fracture. Sinuses: Normal as visualized. No acute sinusitis. Mastoid air cells: Normal as visualized. No mastoid effusion. Soft tissues: Normal. Vasculature: There is a dense MCA sign within the LEFT distal M2/M3 branch. IMPRESSION: 1. Large LEFT temporoparietal lobe infarction. (Aspect score 5). 2. Chronic RIGHT MCA territory infarction. 3. There is a dense MCA sign within the LEFT distal M2/M3 branch suggestive of intraluminal thrombus. Thank you for allowing us to participate in the care of your patient. Dictated and Authenticated by: Keith Juares MD 02/24/2018 6:51 AM Central Time ([place] & [place]) FINAL REPORT: EMERGENT AFTER HOUR CT OF THE BRAIN WITHOUT CONTRAST: FINDINGS/IMPRESSION: I agree with the findings and impression given in the preliminary report by [facility] physician. There is an evolving acute left MCA distribution infarction. There is remote encephalomalacia in the right MCA distribution from remote right MCA distribution inf arction. POS: SIN
[2018-02-24] MEDS ORDERED: Morphine 2 MG/ML SYRINGE SLOW IVP PRN (12:34)
[2018-02-24 17:22] VITALS: TEMP 99.2
== END 2018-02-24 17:20 | disposition hospice, inpatient (51) | DRG 64 ==
LOC: ERS 22:03 → CCU 23:12
PROVIDERS: ADMIT Student in an Organized Health Care Education/Training Program; ATTEND Student in an Organized Health Care Education/Training Program
PROC: 5A1945Z Respiratory Ventilation, 24-96 Consecutive Hours (ICD-10-PCS; principal; 2018-02-22)
PROC: 0BH17EZ Insertion of Endotracheal Airway into Trachea, Via Natural or Artificial Opening (ICD-10-PCS; 2018-02-22)
DX: I63.511 Cerebral infarction due to unspecified occlusion or stenosis of right middle cerebral artery (principal); J96.00 Acute respiratory failure, unspecified whether with hypoxia or hypercapnia; J69.0 Pneumonitis due to inhalation of food and vomit; G93.49 Other encephalopathy; I69.354 Hemiplegia and hemiparesis following cerebral infarction affecting left non-dominant side; I16.1 Hypertensive emergency; R40.2433 Glasgow coma scale score 3-8, at hospital admission; R29.739 NIHSS score 39; I48.2 Chronic atrial fibrillation; I12.9 Hypertensive chronic kidney disease with stage 1 through stage 4 chronic kidney disease, or unspecified chronic kidney disease; N18.3 Chronic kidney disease, stage 3 (moderate); E03.9 Hypothyroidism, unspecified; E78.5 Hyperlipidemia, unspecified; Z66 Do not resuscitate
CPT/HCPCS: 36415; 36416; 70450; 71045; 80048; 80053; 80061; 81003; 81015; 82550; 82553; 82805; 83605; 84145; 84443; 84484; 85025; 85610; 85730; 87040; 87076; 87077; 87086; 87186; 90471; 90670; 93005; 94002; 94003; G0009; J2270; J2543; J2704; J3370; J3480; J7050